=== PATIENT | female | born 1960 | race Caucasian/White ===

== ENCOUNTER 2016-08-15 09:36 | Emergency (ER) | payer MEDICAID ==
[~2016-08-15] VITALS: Ht 157.5 cm; Wt 39.0 kg
[~2016-08-15 09:36] MED LIST: ALENDRONATE SOD10 MG ORAL; ATIVAN1 MG ORAL; AZITHROMYCIN250 MG ORAL; BENTYL10 MG ORAL; CALCIUM500 M2 PO; CELEBREX200 MG ORAL; CHERATUSSIN AC118 ML PO; CYCLOBENZAPRINE10 MG ORAL; FLONASE1 SPRAYS NASAL; FOSAMAX70 MG ORAL; IBUPROFEN600 MG ORAL; LEVAQUIN500 MG ORAL; LEVAQUIN750 MG PO; LEVOTHYROXINE100 MCG ORAL; NAPROSYN500 M1 ORAL; NEXIUM40 MG PO; NORCO 10/3251 EA ORAL; NORCO 5-325 TA1 EACH ORAL; OMEPRAZOLE40 M1 ORAL; PHENAZOPYRIDIN200 MG ORAL; PHENERGAN/CODE120 ML PO; POLYTRIM EYE DR10 M1 OP; ROBITUSSIN COU118 M4 PO; SYNTHROID100 MCG ORAL; SYNTHROID100 MCG PO; TAMIFLU75 MG ORAL; TYLENOL 8 HOUR650 M1 ORAL; TYLENOL325 MG ORAL; VALIUM5 MG ORAL; ZOFRAN ODT4 MG ORAL
[2016-08-15 09:59] VITALS: BP 121/73
--- NOTE | 2016-08-15 10:12 | Emergency Room Report ---
History of Present Illness General Chief Complaint: Flu Like Symptoms Source: Patient Present Illness HPI Patient presents with complaints of cough and sore throat Patient reports that the symptoms onset was about 3 days ago She had similar presentation about one month ago did better at that time however again has returned She reports that last year she did not get sick at all and is here she has had several upper respiratory infections She feels increased phlegm in her chest Denies any vomiting or diarrhea Has increased pain with swallowing 4 out of 10 sharp and burning Denies any neck pain or photophobia Allergies: Coded Allergies: PENICILLINS (Unverified Allergy, Unknown, 11/30/14) CIMETIDINE (Verified Adverse Reaction, Intermediate, 08/25/12) NOT ABLE TO DIGEST IT PER PT CIMETIDINE HCL (Verified Adverse Reaction, Intermediate, 08/25/12) NOT ABLE TO DIGEST IT PER PT Patient History Past Medical History: see triage record Pertinent Family History: none Last Menstrual Period: na Reviewed Nursing Documentation: PMH: Agreed, PSxH: Agreed Nursing Documentation-PMH Past Medical History: No History, Except For Hx Hypertension: No Hx Pacemaker: No Hx Asthma: No Hx Diabetes: No Hx Cancer: No Hx Gastrointestinal Problems: Yes - IBS Hx Dialysis: No Hx Neurological Problems: No Hx Cerebrovascular Accident: No Hx Seizures: No Review of Systems All Other Systems: negative except mentioned in HPI Physical Exam Vital Signs Date Time Temp Pulse Resp B/P Pulse Ox O2 Delivery O2 Flow Rate FiO2 08/15/16 09:38 99.3 114 20 116/73 95 Room Air Sp02 EP Interpretation: reviewed, normal General Appearance: well appearing - However appears thin, no apparent distress Head: normocephalic, atraumatic Eyes: bilateral eye EOMI, bilateral eye PERRL ENT: hearing grossly normal, normal pharynx, TMs + canals normal, uvula midline Neck: full range of motion, supple, no meningismus, no bony tend Respiratory: normal breath sounds, no rhonchi, no respiratory distress, no retraction, no accessory muscle use, crackles - In both lower lobes Cardiovascular #1: normal peripheral pulses, regular rate, rhythm, no edema, no gallop, no JVD, no murmur Gastrointestinal: normal bowel sounds, non tender, soft, no mass, no organomegaly, non-distended, no guarding, no hernia, no pulsatile mass, no rebound Genitourinary: no CVA tenderness Musculoskeletal: normal inspection Neurologic: oriented x3, responsive, mechanical handyman III-XII nml as tested, motor strength/ tone normal, sensory intact Psychiatric: mood/affect normal Skin: normal color, no rash, warm/dry, palpation normal Lymphatic: normal inspection, no adenopathy Medical Decision Making Diagnostic Impression: Primary Impression: Influenza-like symptoms Additional Impressions: Upper respiratory infection Medication refill ER Course With the patient's presentation complaints multiple differentials are considered Given her symptomatically presentation IV was established along with imaging studies obtained I do see that the patient had imaging of the chest in July however she has worsening symptoms Patient's blood work is at baseline levels at this time Patient's also asking for refill of medications including her thyroid and protonic Reports that she has a history of IBS Given her history and also complaining of weight loss at the end of evaluation I recommended that she requires very close outpatient followup patient does not have any primary care at this time and was given a referral for close followup Labs Test 08/15/16 10:20 White Blood Count 3.5 K/UL (4.8-10.8) Red Blood Count 4.50 M/UL (4.20-5.40) Hemoglobin 13.6 G/DL (12.0-16.0) Hematocrit 40.7 % (37.0-47.0) Mean Corpuscular Volume 90 FL (80-99) Mean Corpuscular Hemoglobin 30.1 PG (27.0-31.0) Mean Corpuscular Hemoglobin Concent 33.3 G/DL (32.0-36.0) Red Cell Distribution Width 11.2 % (11.6-14.8) Platelet Count 233 K/UL (150-450) Mean Platelet Volume 7.7 FL (6.5-10.1) Neutrophils (%) (Auto) 47.6 % (45.0-75.0) Lymphocytes (%) (Auto) 39.8 % (20.0-45.0) Monocytes (%) (Auto) 9.9 % (1.0-10.0) Eosinophils (%) (Auto) 1.6 % (0.0-3.0) Basophils (%) (Auto) 1.2 % (0.0-2.0) Sodium Level 139 mEQ/L (135-145) Potassium Level 3.8 mEQ/L (3.4-4.9) Chloride Level 95 mEQ/L (98-107) Carbon Dioxide Level 27 mEQ/L (20-30) Anion Gap 17 (5-15) Blood Urea Nitrogen 23 mg/dL (7-23) Creatinine 0.9 mg/dL (0.5-0.9) Estimat Glomerular Filtration Rate > 60 mL/min (>60) Glucose Level 100 mg/dL (74-106) Calcium Level 9.5 mg/dL (8.6-10.2) Phosphorus Level 3.1 mg/dL (2.5-4.8) Magnesium Level 2.2 mg/dL (1.7-2.5) Total Bilirubin 0.3 mg/dL (0.0-1.2) Aspartate Amino Transf (AST/SGOT) 27 U/L (5-40) Alanine Aminotransferase (ALT/SGPT) 11 U/L (3-33) Alkaline Phosphatase 67 U/L (35-104) Total Creatine Kinase 157 U/L (26-140) Creatine Kinase MB 2.8 ng/mL (< 3.8) Creatine Kinase MB Relative Index 1.7 Total Protein 7.5 g/dL (6.6-8.7) Albumin 4.3 g/dL (3.5-5.2) Globulin 3.2 g/dL Albumin/Globulin Ratio 1.3 (1.0-2.7) Lipase 28 U/L (< 60) Chest X-Ray Diagnostic Results EP Interpretation: Yes Findings: no consolidation, no effusion, no pneumothorax Number of Views: 1 Last Vital Signs Date Time Temp Pulse Resp B/P Pulse Ox O2 Delivery O2 Flow Rate FiO2 08/15/16 09:59 108 18 Room Air 08/15/16 09:59 99.2 121/73 96 Status: improved Disposition: HOME, SELF-CARE Condition: Improved Scripts Albuterol Sulfate* (ALBUTEROL SULFATE MDI*) 8.5 Gm Hfa.aer.ad 2 PUFF INH Q6H, #1 EA 0 Refills Prov: BARBIE JONES D.O. 08/15/16 Codeine/Promethazine Hcl* (PROMETHAZINE-CODEINE SYRUP*) 118 Ml Syrup 5 ML ORAL Q6H Y for For Cough for 5 Days, ML 0 Refills Prov: BARBIE JONES D.O. 08/15/16 Omeprazole (OMEPRAZOLE) 40 Mg Capsule. 40 MG ORAL DAILY, #20 CAP Prov: BARBIE JONES D.O. 08/15/16 Levothyroxine Sodium* (LEVOTHYROXINE SODIUM*) 100 Mcg Tablet 100 MCG ORAL DAILY, #30 TAB Take in the morning on an empty stomach, at least 30 minutes before food. Prov: ABRBIE JONES D.O. 08/15/16 Referrals: [facility]ERR[facility] (PCP) Additional Instructions: Patient is provided with the discharge instructions notified to follow up with primary doctor in the next 2-3 days otherwise return to the er with any worsening symptoms. BARBIE JONES D.O. Aug 15, 2016 10:12
[2016-08-15] MEDS ORDERED: Promethazine/Codeine 5ml UD ORAL ONE (10:15)
[2016-08-15] MEDS ORDERED: Albuterol ud Inhalation HHN ONE (10:15)
[2016-08-15 10:55] LABS: ALANINE AMINOTRANSFERASE 11 U/L (3-33); ALBUMIN/GLOBULIN RATIO 1.3 (1.0-2.7); ANION GAP 17 (5-15); ASPARTATE AMINO TRANSFERASE 27 U/L (5-40); CALCIUM 9.5 mg/dL (8.6-10.2); CARBON DIOXIDE 27 mEQ/L (20-30); CHLORIDE 95 mEQ/L (98-107); CREATININE 0.9 mg/dL (0.5-0.9); GLOMERULAR FILTRATION RATE > 60 mL/min (>60); HEMOLYSIS 8; LIPASE 28 U/L (< 60); MAGNESIUM 2.2 mg/dL (1.7-2.5); PHOSPHORUS 3.1 mg/dL (2.5-4.8); POTASSIUM 3.8 mEQ/L (3.4-4.9); SODIUM 139 mEQ/L (135-145); TOTAL PROTEIN 7.5 g/dL (6.6-8.7)
[2016-08-15 10:57] LABS: BASOPHILS % (AUTO) 1.2 % (0.0-2.0); EOSINOPHILS % (AUTO) 1.6 % (0.0-3.0); LYMPHOCYTES % (AUTO) 39.8 % (20.0-45.0); MEAN CORPUSCULAR HEMOGLOBIN 30.1 PG (27.0-31.0); MEAN CORPUSCULAR HGB CONC 33.3 G/DL (32.0-36.0); MEAN CORPUSCULAR VOLUME 90 FL (80-99); MEAN PLATELET VOLUME 7.7 FL (6.5-10.1); MONOCYTES % (AUTO) 9.9 % (1.0-10.0); NEUTROPHILS % (AUTO) 47.6 % (45.0-75.0); PLATELET COUNT 233 K/UL (150-450); RED CELL DISTRIBUTION WIDTH 11.2 % (11.6-14.8); WHITE BLOOD COUNT 3.5 K/UL (4.8-10.8)
[2016-08-15 11:06] LABS: CKMB 2.8 ng/mL (< 3.8)
[2016-08-15] MEDS ORDERED: OMEPRAZOLE40 M1 ORAL (11:52)
[2016-08-15] MEDS ORDERED: LEVOTHYROXINE100 MCG ORAL (11:52)
[2016-08-15] MEDS ORDERED: PROMETHAZINE-C118 M1 ORAL (11:52)
[2016-08-15] MEDS ORDERED: LEVAQUIN500 MG ORAL (11:59)
[2016-08-15] MEDS ORDERED: ALBUTEROL SULF8.5 GM INH (12:00)
[2016-08-15 12:19] VITALS: BP 118/70
--- NOTE | 2016-08-15 13:58 | Diagnostic Imaging Report ---
Indications: Cough Technique: Portable AP chest Findings: Comparison: 07/05/2016 Cardiac silhouette remains normal in size. Pulmonary vasculature remains within normal limits. Lungs are symmetrically hyperinflated. Lungs and pleura remain clear. Mild calcification of the aortic arch is unchanged. IMPRESSION: No evidence of acute disease, unchanged Stable chronic changes as described
== END 2016-08-15 12:20 | disposition home or self-care (01) ==
LOC: EMR 10:04
DX: J11.1 Influenza due to unidentified influenza virus with other respiratory manifestations (principal); J06.9 Acute upper respiratory infection, unspecified; Z76.0 Encounter for issue of repeat prescription; Z88.0 Allergy status to penicillin; Z88.8 Allergy status to other drugs, medicaments and biological substances
CPT/HCPCS: 36415; 71010; 80053; 82550; 82553; 83690; 83735; 84100; 85025; 87040; 96360; 96361

== ENCOUNTER 2016-12-12 18:26 | Emergency (ER) | payer MEDICAID ==
[~2016-12-12] VITALS: Ht 157.5 cm; Wt 39.5 kg
[~2016-12-12 18:26] MED LIST changes: +ALBUTEROL SULF8.5 GM INH; +PROMETHAZINE-C118 M1 ORAL
[2016-12-12] MEDS ORDERED: ALPRAZolam 0.5mg tab ORAL ONE (19:15)
[2016-12-12 20:10] VITALS: BP 112/68
[2016-12-12] MEDS ORDERED: IBUPROFEN600 MG ORAL (20:36)
[2016-12-12] MEDS ORDERED: CORTISPORIN EAR10 ML LEFT EAR (20:36)
[2016-12-12] MEDS ORDERED: SYNTHROID100 MCG ORAL (20:36)
[2016-12-12] MEDS ORDERED: OMEPRAZOLE40 M1 ORAL (20:36)
[2016-12-12 20:45] VITALS: BP 112/68
--- NOTE | 2016-12-12 22:13 | Emergency Room Report ---
History of Present Illness General Chief Complaint: Headache Source: Patient Present Illness HPI The patient is a 56-year-old female with many general complaints including headache, fatigue, total body pain, sore throat, ear pain,, and anxiety. She states headache began 1 month prior for no known reason. She has tried Advil which minimally helps. Pain seems to be right-sided and is described as a tight sensation. It is said to be a 9/10. Pain worse with bright lights and sounds. She denies other symptoms including fever, chills, chest pain, shortness of breath, numbness or tingling, nausea, vomiting Allergies: Coded Allergies: PENICILLINS (Unverified Allergy, Unknown, 11/30/14) CIMETIDINE (Verified Adverse Reaction, Intermediate, 08/25/12) NOT ABLE TO DIGEST IT PER PT CIMETIDINE HCL (Verified Adverse Reaction, Intermediate, 08/25/12) NOT ABLE TO DIGEST IT PER PT Patient History Past Medical History: see triage record Pertinent Family History: none Reviewed Nursing Documentation: PMH: Agreed, PSxH: Agreed Nursing Documentation-PMH Past Medical History: No History, Except For Hx Hypertension: No Hx Pacemaker: No Hx Asthma: No Hx Diabetes: No Hx Cancer: No Hx Gastrointestinal Problems: Yes - IBS Hx Dialysis: No Hx Neurological Problems: No Hx Cerebrovascular Accident: No Hx Seizures: No Review of Systems All Other Systems: negative except mentioned in HPI Physical Exam Vital Signs Date Time Temp Pulse Resp B/P Pulse Ox O2 Delivery O2 Flow Rate FiO2 12/12/16 18:30 98.4 105 18 115/73 100 Room Air Sp02 EP Interpretation: reviewed, normal General Appearance: no apparent distress, alert, GCS 15, non-toxic Head: normocephalic, atraumatic Eyes: bilateral eye PERRL, bilateral eye normal inspection ENT: hearing grossly normal, no angioedema, normal voice, other - L EAC slightly erythematous. TTP over tragus Neck: full range of motion, supple/symm/no masses Respiratory: chest non-tender, lungs clear, normal breath sounds, speaking full sentences Cardiovascular #1: regular rate, rhythm, no edema Musculoskeletal: back normal, gait/station normal, normal range of motion, non- tender Neurologic: alert, oriented x3, responsive, motor strength/tone normal, sensory intact, speech normal Psychiatric: judgement/insight normal, memory normal, no suicidal/homicidal ideation, anxious Skin: normal color, no rash, warm/dry, well hydrated Lymphatic: no adenopathy Medical Decision Making PA Attestation Dr. Gloria is my supervising physician. Patient management was discussed with my supervising physician Diagnostic Impression: Primary Impression: Medication refill Additional Impressions: Migraine Qualified Codes: G43.909 - Migraine, unspecified, not intractable, without status migrainosus Otitis externa Qualified Codes: H60.502 - Unspecified acute noninfective otitis externa, left ear ER Course The patient is a 56-year-old female with many complaints including headache, URI symptoms, and anxiety Differential diagnoses considered but not limited to: Migraine headache, cluster headache, anxiety disorder, otitis media, otitis externa Physical exam: Afebrile. Patient appears anxious and is tachycardic initially. HEENT exam reveals slightly erythematous external auditory canal with tenderness to palpation over tragus. Otherwise unremarkable The patient is given Motrin and an anxiolytic and is feeling better and appears more calm. She is given a prescription for Cortisporin and Motrin. She was informed to followup with PMD but states that she does not have one. She states that she just ran out of her hypothyroid and GERD medications and needs a refill. She was informed that she needs to establish care with a PCP as soon as possible. She is given a short refill of medications ER precautions given Last Vital Signs Date Time Temp Pulse Resp B/P Pulse Ox O2 Delivery O2 Flow Rate FiO2 12/12/16 20:45 98.4 78 16 112/68 97 Room Air Status: improved Disposition: HOME, SELF-CARE Condition: Improved Scripts Levothyroxine Sodium* (SYNTHROID*) 100 Mcg Tablet 100 MCG ORAL DAILY, #30 TAB Take in the morning on an empty stomach, at least 30 minutes before food. Prov: TERZIAN,KENNY P.A. 12/12/16 Neomycin/Polymyxin B Sulf/Hc* (CORTISPORIN EAR SOLUTION*) 10 Ml Solution 4 DROP LEFT EAR QID, #10 ML 0 Refills Prov: TERZIAN,KENNY P.A. 12/12/16 Omeprazole (OMEPRAZOLE) 40 Mg Capsule. 40 MG ORAL DAILY, #30 CAP Prov: TERZIAN,KENNY P.A. 12/12/16 Ibuprofen* (MOTRIN*) 600 Mg Tablet 600 MG ORAL Q6H Y for For Pain, #30 TAB Prov: KENNY EGAN 12/12/16 Patient Instructions: Hypothyroidism, Otitis Externa, General Headache Without Cause, Indigestion Additional Instructions: I discussed my findings with the patient. All questions and concerns have been answered. Treatment and medication compliance have been addressed. I advised the patient that they need to follow up with PMD in 3-5 days. Return to ED if symptoms worsen, new symptoms arise, or if needed for any reason. Patient verbalized understanding of discharge instructions. KENNY EGAN December 12, 2016 22:13
== END 2016-12-12 20:45 | disposition home or self-care (01) ==
LOC: EMR 18:50
DX: Z76.0 Encounter for issue of repeat prescription (principal); G43.909 Migraine, unspecified, not intractable, without status migrainosus; H60.92 Unspecified otitis externa, left ear; K58.9 Irritable bowel syndrome, unspecified; Z88.0 Allergy status to penicillin; Z88.8 Allergy status to other drugs, medicaments and biological substances; R53.83 Other fatigue; J02.9 Acute pharyngitis, unspecified; F41.9 Anxiety disorder, unspecified
CPT/HCPCS: 99284

== ENCOUNTER 2017-03-27 18:11 | Emergency (ER) | payer MEDICAID ==
[~2017-03-27] VITALS: Ht 157.5 cm; Wt 41.7 kg
[~2017-03-27 18:11] MED LIST changes: +CORTISPORIN EAR10 ML LEFT EAR
--- NOTE | 2017-03-27 18:42 | Emergency Room Report ---
History of Present Illness General Chief Complaint: Lower Extremity Injury Present Illness HPI 57-year-old female presents to the emergency department status post fall this a.m. Patient states she fell on the bilateral knees and has anterior tenderness to palpation bilaterally and left knee pain with weightbearing. pain is localized and 9/10 in severity. Patient states that intermittently she gets dizziness. Patient states that she has felt palpitations since falling as she was scared. Patient states she has thyroid dysfunction and takes Synthroid. Patient states she did not hit her head she did not lose consciousness. Patient states she is unsure exactly why she fell. She denies fevers, chills, nausea, vomiting. Denies Neck or back pain. pt. reports some soreness to the bilateral wrists but no significant Tenderness. Denies numbness tingling or loss of sensation or gross motor movements of the extremities, incontinence of bowel or bladder. Denies CP, Palpitations, LOC, AMS, dizziness, Changes in Vision, Sensation, paresthesias, or a sudden severe headache. Allergies: Coded Allergies: PENICILLINS (Unverified Allergy, Unknown, 11/30/14) CIMETIDINE (Verified Adverse Reaction, Intermediate, 08/25/12) NOT ABLE TO DIGEST IT PER PT CIMETIDINE HCL (Verified Adverse Reaction, Intermediate, 08/25/12) NOT ABLE TO DIGEST IT PER PT Patient History Past Medical History: see triage record Past Surgical History: none Pertinent Family History: none Now: No Immunizations: UTD Reviewed Nursing Documentation: PMH: Agreed, PSxH: Agreed Nursing Documentation-PMH Hx Hypertension: No Hx Pacemaker: No Hx Asthma: No Hx Diabetes: No Hx Cancer: No Hx Gastrointestinal Problems: Yes - IBS Hx Dialysis: No Hx Neurological Problems: No Hx Cerebrovascular Accident: No Hx Seizures: No Review of Systems All Other Systems: negative except mentioned in HPI Physical Exam Vital Signs Date Time Temp Pulse Resp B/P (MAP) Pulse Ox O2 Delivery O2 Flow Rate FiO2 03/27/17 18:17 99.0 115 26 114/64 98 Room Air Sp02 EP Interpretation: reviewed, normal General Appearance: no apparent distress, alert, GCS 15, non-toxic Head: normocephalic, atraumatic Eyes: bilateral eye normal inspection, bilateral eye PERRL ENT: hearing grossly normal, normal pharynx, no angioedema, normal voice Neck: full range of motion, supple/symm/no masses Respiratory: lungs clear, normal breath sounds, speaking full sentences Cardiovascular #1: regular rate, rhythm, tachycardia Gastrointestinal: non tender, soft, no guarding, no rebound Rectal: deferred Musculoskeletal: back normal, gait/station normal, normal range of motion - with pain, tender - TTP to the anterior knees bilaterally, no swelling, mild bruising noted to the anterior right knee, no increased ligamental laxity, negative ant. and post. drawer signs. FROM with pain, no clicking. Neurologic: alert, oriented x3, responsive, motor strength/tone normal, sensory intact, cerebellar normal, speech normal, no pronator, other - Pt. is walking with a limp favoring the right knee. Psychiatric: judgement/insight normal, memory normal, mood/affect normal Skin: normal color, no rash, warm/dry, well hydrated Medical Decision Making PA Attestation Dr. Rodriges is my supervising Physician whom patient management has been discussed with. Diagnostic Impression: Primary Impression: Knee contusion Qualified Codes: S80.00XA - Contusion of unspecified knee, initial encounter Additional Impressions: Fall Qualified Codes: W19.XXXA - Unspecified fall, initial encounter GERD (gastroesophageal reflux disease) Qualified Codes: K21.9 - Gastro-esophageal reflux disease without esophagitis Hypothyroidism Qualified Codes: E03.9 - Hypothyroidism, unspecified ER Course 57-year-old female presents to the emergency department status post fall this a.m. Patient states she fell on the bilateral knees and has anterior tenderness to palpation bilaterally and left knee pain with weightbearing. pain is localized and 9/10 in severity. Patient states that intermittently she gets dizziness. Patient states that she has felt palpitations since falling as she was scared. Patient states she has thyroid dysfunction and takes Synthroid. Patient states she did not hit her head she did not lose consciousness. Patient states she is unsure exactly why she fell. She denies fevers, chills, nausea, vomiting. Denies Neck or back pain. pt. reports some soreness to the bilateral wrists but no significant Tenderness. Denies numbness tingling or loss of sensation or gross motor movements of the extremities, incontinence of bowel or bladder. Denies CP, Palpitations, LOC, AMS, dizziness, Changes in Vision, Sensation, paresthesias, or a sudden severe headache. Ddx considered but are not limited to Fracture, dislocation, contusion, Sprain/ Strain/Spasm, cardiac pathology, dysrhythmia, UTI Vital signs: are WNL, pt. is afebrile H&PE are most consistent with musculoskeletal injury will perform imaging to r/ o fractures/dislocations. Will also do syncope work up as pt. does not recall exactly why she fell. No focal neurological deficits, no motor weakness. ORDERS: - X-ray Right Knee 3 views - negative for fx, Dislocation, or significant soft tissue injury, per preliminary read in ED by Dr. Rodriges - interpretation is scribed by FER. - X-ray Left Knee 3 views - negative for fx, Dislocation, or significant soft tissue injury, per preliminary read in ED by Dr. Rodriges - interpretation is scribed by FER - CXR 1 views: No consolidation, effusion, pneumothorax or acute cardiopulmonary findings per soft read in ED by Dr. Rodriges -CBC:mild richardson cytopenia, hgb ok -CMP: unremarkable -Troponin: WNL -CK-MB: WNL -Ck: WNL -UA: unremarkable , no evidence of infection - EK BPM Sinus tachycardia - no acute ST changes reviewed by Dr. Rodriges, this interpretation was scribed by FER Fraga ED INTERVENTIONS: - Tyllenol #3 - Pt is given Ice packs - Ruperto wrap applied to the right knee by pipe coremaker, pt. remains NVI - Pt. is provided with a pair of crutches. AT this time pt. is stable for close outpatient follow up with pMD. d/w pt. ED return precautions such as worsening or new symptoms. Pt. also requests refill of synthroid and omeprazole. DISCHARGE: At this time pt. is stable for d/c to home. Will provide printed patient care instructions, and any necessary prescriptions. Care plan and follow up instructions have been discussed with the patient prior to discharge. Labs Test 03/27/17 19:10 White Blood Count 4.5 K/UL (4.8-10.8) Red Blood Count 3.83 M/UL (4.20-5.40) Hemoglobin 12.6 G/DL (12.0-16.0) Hematocrit 35.8 % (37.0-47.0) Mean Corpuscular Volume 93 FL (80-99) Mean Corpuscular Hemoglobin 33.0 PG (27.0-31.0) Mean Corpuscular Hemoglobin Concent 35.4 G/DL (32.0-36.0) Red Cell Distribution Width 11.2 % (11.6-14.8) Platelet Count 225 K/UL (150-450) Mean Platelet Volume 6.5 FL (6.5-10.1) Neutrophils (%) (Auto) 55.7 % (45.0-75.0) Lymphocytes (%) (Auto) 34.8 % (20.0-45.0) Monocytes (%) (Auto) 8.0 % (1.0-10.0) Eosinophils (%) (Auto) 0.6 % (0.0-3.0) Basophils (%) (Auto) 1.0 % (0.0-2.0) Urine Color Pale yellow Urine Appearance Clear Urine pH 8 (4.5-8.0) Urine Specific [place] 1.010 (1.005-1.035) Urine Protein Negative (NEGATIVE) Urine Glucose (UA) Negative (NEGATIVE) Urine Ketones 2+ (NEGATIVE) Urine Occult Blood Negative (NEGATIVE) Urine Nitrite Negative (NEGATIVE) Urine Bilirubin Negative (NEGATIVE) Urine Urobilinogen Normal MG/DL (0.0-1.0) Urine Leukocyte Esterase Negative (NEGATIVE) Sodium Level 140 mEQ/L (135-145) Potassium Level 4.1 mEQ/L (3.4-4.9) Chloride Level 99 mEQ/L (98-107) Carbon Dioxide Level 28 mEQ/L (20-30) Anion Gap 13 (5-15) Blood Urea Nitrogen 16 mg/dL (7-23) Creatinine 0.7 mg/dL (0.5-0.9) Estimat Glomerular Filtration Rate > 60 mL/min (>60) Glucose Level 100 mg/dL (74-106) Calcium Level 9.4 mg/dL (8.6-10.2) Total Bilirubin 0.2 mg/dL (0.0-1.2) Aspartate Amino Transf (AST/SGOT) 17 U/L (5-40) Alanine Aminotransferase (ALT/SGPT) 8 U/L (3-33) Alkaline Phosphatase 66 U/L (35-104) Total Creatine Kinase 59 U/L (26-140) Creatine Kinase MB 1.9 ng/mL (< 3.8) Creatine Kinase MB Relative Index 3.2 Troponin I < 0.30 ng/mL (<=0.30) Total Protein 7.2 g/dL (6.6-8.7) Albumin 4.6 g/dL (3.5-5.2) Globulin 2.6 g/dL Albumin/Globulin Ratio 1.7 (1.0-2.7) Last Vital Signs Date Time Temp Pulse Resp B/P (MAP) Pulse Ox O2 Delivery O2 Flow Rate FiO2 03/27/17 18:17 99.0 115 26 114/64 98 Room Air Disposition: HOME, SELF-CARE Condition: Stable Scripts Levothyroxine Sodium* (SYNTHROID*) 100 Mcg Tablet 100 MCG ORAL DAILY for 30 Days, #30 TAB Take in the morning on an empty stomach, at least 30 minutes before food. Prov: Kylah Fraga 03/27/17 Omeprazole (OMEPRAZOLE) 40 Mg Capsule.dr 40 MG ORAL DAILY for 30 Days, #30 CAP Prov: Kylah Fraga 03/27/17 Acetaminophen* (TYLENOL EXTRA STRENGTH*) 500 Mg Tablet 500 MG ORAL Q6H, #20 TAB 0 Refills Prov: Kylah Fraga 03/27/17 Patient Instructions: Contusion Additional Instructions: Take medications as directed. Follow up with a Primary Care Provider in 3-5 days, even if your symptoms have resolved. --Please review list of primary care clinics, if you do not already have a primary care provider Return sooner to ED if new symptoms occur, or current symptoms become worse. - Please note that this Emergency Department Report was dictated using Viewabillcement tester assistant technology software, occasionally this can lead to erroneous entry secondary to interpretation by the dictation equipment. Kylah Fraga Mar 27, 2017 18:42
[2017-03-27] MEDS ORDERED: Tylenol #3 tab (300mg/30mg) ORAL ONE (19:15)
[2017-03-27 19:36] LABS: APPEARANCE,URINE CLEAR; KETONES,URINE 2+ (NEGATIVE); LEUKOCYTE ESTERASE ,URINE NEGATIVE (NEGATIVE); NITRITE,URINE NEGATIVE (NEGATIVE); PH,URINE 8 (4.5-8.0); PROTEIN,URINE NEGATIVE (NEGATIVE); UROBILINOGEN,URINE NORMAL MG/DL (0.0-1.0)
[2017-03-27 19:42] LABS: EOSINOPHILS % (AUTO) 0.6 % (0.0-3.0); LYMPHOCYTES % (AUTO) 34.8 % (20.0-45.0); MEAN CORPUSCULAR HGB CONC 35.4 G/DL (32.0-36.0); MEAN CORPUSCULAR VOLUME 93 FL (80-99); MEAN PLATELET VOLUME 6.5 FL (6.5-10.1); NEUTROPHILS % (AUTO) 55.7 % (45.0-75.0); PLATELET COUNT 225 K/UL (150-450); RED BLOOD COUNT 3.83 M/UL (4.20-5.40); RED CELL DISTRIBUTION WIDTH 11.2 % (11.6-14.8); WHITE BLOOD COUNT 4.5 K/UL (4.8-10.8)
[2017-03-27 20:05] LABS: TROPONIN I < 0.30 ng/mL (<=0.30)
[2017-03-27 20:06] LABS: ALANINE AMINOTRANSFERASE 8 U/L (3-33); ALBUMIN/GLOBULIN RATIO 1.7 (1.0-2.7); ANION GAP 13 (5-15); ASPARTATE AMINO TRANSFERASE 17 U/L (5-40); CALCIUM 9.4 mg/dL (8.6-10.2); CARBON DIOXIDE 28 mEQ/L (20-30); CHLORIDE 99 mEQ/L (98-107); CREATININE 0.7 mg/dL (0.5-0.9); GLOMERULAR FILTRATION RATE > 60 mL/min (>60); HEMOLYSIS 4; POTASSIUM 4.1 mEQ/L (3.4-4.9); SODIUM 140 mEQ/L (135-145); TOTAL PROTEIN 7.2 g/dL (6.6-8.7)
[2017-03-27] MEDS ORDERED: TYLENOL EXTRA500 MG ORAL (20:10)
[2017-03-27 20:17] LABS: CKMB 1.9 ng/mL (< 3.8)
[2017-03-27 20:18] VITALS: BP 125/56
[2017-03-27] MEDS ORDERED: OMEPRAZOLE40 M1 ORAL (20:18)
[2017-03-27] MEDS ORDERED: SYNTHROID100 MCG ORAL (20:18)
--- NOTE | 2017-03-28 11:37 | Diagnostic Imaging Report ---
Indication: Pain 3 views of the left knee were obtained. Findings: The bones are osteopenic. There is no fracture or malalignment or joint effusion seen. There is some narrowing of the medial compartment. Impression: Osteoarthritis Osteoporosis
--- NOTE | 2017-03-28 11:38 | Diagnostic Imaging Report ---
Indication: Pain 3 views of the right knee were obtained. Findings: There is narrowing of the medial compartment of the knee. The bones are osteopenic. No definite joint effusion identified. No fracture seen. Impression: No acute injury. Osteoarthritis/osteopenia
--- NOTE | 2017-03-28 11:43 | Diagnostic Imaging Report ---
Indication: Dyspnea Comparison: 08/15/16 A single view chest radiograph was obtained. Findings: Lungs are clear. Heart size is normal. Bones are osteopenic. Impression: No acute disease
--- NOTE | 2017-04-01 15:51 | Cardiology Report ---
APPROVED REPORT EKG Measurement Heart [id number] Sinus tachycardia Otherwise normal ECG
== END 2017-03-27 20:30 | disposition home or self-care (01) ==
LOC: EMR 20:25
DX: S80.01XA Contusion of right knee, initial encounter (principal); M25.562 Pain in left knee; K21.9 Gastro-esophageal reflux disease without esophagitis; E03.9 Hypothyroidism, unspecified; R42 Dizziness and giddiness; W19.XXXA Unspecified fall, initial encounter; Y93.9 Activity, unspecified; Y92.9 Unspecified place or not applicable; Z88.0 Allergy status to penicillin; Z88.8 Allergy status to other drugs, medicaments and biological substances; R00.0 Tachycardia, unspecified; M85.80 Other specified disorders of bone density and structure, unspecified site; M17.0 Bilateral primary osteoarthritis of knee; M81.0 Age-related osteoporosis without current pathological fracture
CPT/HCPCS: 29530; 36415; 71010; 80053; 81003; 82550; 82553; 84484; 85025; 93005; 99284

== ENCOUNTER 2017-06-05 18:02 | Emergency (ER) | payer MEDICAID ==
[~2017-06-05] VITALS: Ht 157.5 cm; Wt 38.6 kg
[~2017-06-05 18:02] MED LIST changes: +TYLENOL EXTRA500 MG ORAL
[2017-06-05] MEDS ORDERED: Methocarbamol 750mg tab ORAL ONE (18:30)
[2017-06-05 18:33] VITALS: BP 123/79
[2017-06-05] MEDS ORDERED: SYNTHROID100 MCG ORAL (18:56)
[2017-06-05] MEDS ORDERED: ROBAXIN-750750 MG PO (18:56)
[2017-06-05] MEDS ORDERED: TYLENOL EXTRA500 MG ORAL (18:56)
[2017-06-05] MEDS ORDERED: OMEPRAZOLE40 M1 ORAL (18:56)
[2017-06-05 19:13] VITALS: BP 123/79
--- NOTE | 2017-06-05 21:23 | Emergency Room Report ---
History of Present Illness General Chief Complaint: Multiple Trauma/Fall Source: Patient Present Illness HPI The patient is a 57-year-old female with a history of hypothyroidism and GERD presenting for pain after falling 2 days ago. She states that she was walking, felt dizzy, and fell down onto her arms. She denies loss of consciousness or head. She is now describing pain as a 6/10 dull ache to the right wrist and right shoulder. Pain worse with touch. She denies any numbness or tingling. She denies any other symptoms including nausea, vomiting, fever, chills, chest pain, shortness of breath, blurred vision, headache Allergies: Coded Allergies: PENICILLINS (Unverified Allergy, Unknown, 11/30/14) CIMETIDINE (Verified Adverse Reaction, Intermediate, 08/25/12) NOT ABLE TO DIGEST IT PER PT CIMETIDINE HCL (Verified Adverse Reaction, Intermediate, 08/25/12) NOT ABLE TO DIGEST IT PER PT Patient History Past Medical History: see triage record Pertinent Family History: none Reviewed Nursing Documentation: PMH: Agreed, PSxH: Agreed Nursing Documentation-PMH Past Medical History: No History, Except For Hx Hypertension: No Hx Pacemaker: No Hx Asthma: No Hx Diabetes: No Hx Cancer: No Hx Gastrointestinal Problems: Yes - IBS Hx Dialysis: No History Of Psychiatric Problem: No Hx Neurological Problems: No Hx Cerebrovascular Accident: No Hx Seizures: No Review of Systems All Other Systems: negative except mentioned in HPI Physical Exam Vital Signs Date Time Temp Pulse Resp B/P (MAP) Pulse Ox O2 Delivery O2 Flow Rate FiO2 06/05/17 18:07 98.4 100 16 123/79 96 Room Air Sp02 EP Interpretation: reviewed, normal General Appearance: no apparent distress, alert, GCS 15, non-toxic Head: normocephalic, atraumatic Eyes: bilateral eye normal inspection, bilateral eye PERRL ENT: hearing grossly normal, normal pharynx, no angioedema, normal voice Neck: full range of motion, supple/symm/no masses Respiratory: chest non-tender, lungs clear, normal breath sounds, speaking full sentences Cardiovascular #1: regular rate, rhythm, no edema Genitourinary: normal inspection, no CVA tenderness Musculoskeletal: back normal, gait/station normal, normal range of motion, non- tender Neurologic: alert, oriented x3, responsive, motor strength/tone normal, sensory intact, speech normal Psychiatric: judgement/insight normal, memory normal, mood/affect normal, no suicidal/homicidal ideation Skin: normal color, no rash, warm/dry, well hydrated Lymphatic: no adenopathy Medical Decision Making PA Attestation Dr. Dinero is my supervising physician. Patient management was discussed with my supervising physician Diagnostic Impression: Primary Impression: Muscle strain ER Course The patient is a 57-year-old female presenting for pain after falling Ddx considered include but not limited to sprain/strain, fracture, contusion PE: NAD. Head NC/AT Musculoskeletal: R shoulder and R wrist: Non tender. Full AROM. No ecchymosis. No edema. EKG unremarkable No imaging needed at this time. The patient is asking for medication refills of chronic medications as she has been unable to FU with PMD. She will be DC'ed home. ER precautions given EKG Diagnostic Results EP Interpretation: NSR. No acute findings Rate: normal - 95 Rhythm: NSR ST Segments: no acute changes ASA given to the pt in ED: No PA Scribe Text EKG was reviewed and read with my supervising physician. No acute ST segment changes are seen. Normal rate and rhythm. No acute changes. Last Vital Signs Date Time Temp Pulse Resp B/P (MAP) Pulse Ox O2 Delivery O2 Flow Rate FiO2 06/05/17 19:14 98.4 06/05/17 19:13 78 16 123/79 96 Room Air Status: improved Disposition: HOME, SELF-CARE Condition: Improved Scripts Methocarbamol* (ROBAXIN-750*) 750 Mg Tablet 750 MG PO TID, #21 TAB 0 Refills Prov: TERZIAN,KENNY P.A. 06/05/17 Acetaminophen* (TYLENOL EXTRA STRENGTH*) 500 Mg Tablet 500 MG ORAL Q8H Y for Prn Headache/Temp > 101, #30 TAB 0 Refills Prov: TERZIAN,KENNY P.A. 06/05/17 Levothyroxine Sodium* (SYNTHROID*) 100 Mcg Tablet 100 MCG ORAL DAILY, #30 TAB Take in the morning on an empty stomach, at least 30 minutes before food. Prov: TERZIAN,KENNY P.A. 06/05/17 Omeprazole (OMEPRAZOLE) 40 Mg Capsule. 40 MG ORAL DAILY, #30 CAP Prov: TERZIAN,KENNY P.A. 11/2/17 Referrals: [facility]ERR[facility] (PCP) Patient Instructions: Muscle Strain Additional Instructions: I discussed my findings with the patient. All questions and concerns have been answered. Treatment and medication compliance have been addressed. I advised the patient that they need to follow up with PMD in 3-5 days. Return to ED if symptoms worsen, new symptoms arise, or if needed for any reason. Patient verbalized understanding of discharge instructions. KENNY EGAN Jun 05, 2017 21:23
--- NOTE | 2017-06-07 14:46 | Cardiology Report ---
APPROVED REPORT EKG Measurement Heart [id number] Sinus rhythm with short RI Otherwise normal ECG
== END 2017-06-05 19:12 | disposition home or self-care (01) ==
LOC: EMR 18:40
DX: S66.911A Strain of unspecified muscle, fascia and tendon at wrist and hand level, right hand, initial encounter (principal); S46.911A Strain of unspecified muscle, fascia and tendon at shoulder and upper arm level, right arm, initial encounter; W19.XXXA Unspecified fall, initial encounter; Y92.410 Unspecified street and highway as the place of occurrence of the external cause; Z88.0 Allergy status to penicillin; Z88.8 Allergy status to other drugs, medicaments and biological substances
CPT/HCPCS: 93005; 99284

== ENCOUNTER 2017-09-05 18:24 | Emergency (ER) | payer MEDICAID ==
[~2017-09-05] VITALS: Ht 157.5 cm; Wt 38.6 kg
[~2017-09-05 18:24] MED LIST changes: +ROBAXIN-750750 MG PO
[2017-09-05 18:40] VITALS: BP_SYST 113; BP_SYST 124; BP_DIAS 55; BP_DIAS 78
--- NOTE | 2017-09-05 18:59 | Emergency Room Report ---
History of Present Illness General Chief Complaint: Upper Respiratory Illness Source: Patient Present Illness HPI 57-year-old female, history of IBS, hypothyroidism, presents with fever, chills , cough, runny nose for 3 days. Cough is productive with clear phlegm. Pt still eating/drinking well. +sick contacts. No recent travel. No SOB, cp, abdominal pain, n/v/. +few episodes diarrhea/day Allergies: Coded Allergies: PENICILLINS (Unverified Allergy, Unknown, 11/30/14) CIMETIDINE (Verified Adverse Reaction, Intermediate, 08/25/12) NOT ABLE TO DIGEST IT PER PT CIMETIDINE HCL (Verified Adverse Reaction, Intermediate, 08/25/12) NOT ABLE TO DIGEST IT PER PT Patient History Past Medical History: see triage record Past Surgical History: none Pertinent Family History: none Now: No Reviewed Nursing Documentation: PMH: Agreed, PSxH: Agreed Nursing Documentation-PMH Past Medical History: No History, Except For Hx Hypertension: No Hx Pacemaker: No Hx Asthma: No Hx Diabetes: No Hx Cancer: No Hx Gastrointestinal Problems: Yes - IBS Hx Dialysis: No Hx Neurological Problems: No Hx Cerebrovascular Accident: No Hx Seizures: No Review of Systems All Other Systems: negative except mentioned in HPI Physical Exam Vital Signs Date Time Temp Pulse Resp B/P (MAP) Pulse Ox O2 Delivery O2 Flow Rate FiO2 09/05/17 18:31 99.0 137 20 122/87 97 Room Air Sp02 EP Interpretation: reviewed, normal General Appearance: alert, GCS 15, non-toxic, mild distress Head: normocephalic, atraumatic Eyes: bilateral eye normal inspection, bilateral eye PERRL, bilateral eye EOMI ENT: normal ENT inspection, normal pharynx, normal voice, moist mucus membranes Neck: normal inspection, full range of motion, supple Respiratory: normal inspection, lungs clear, normal breath sounds, no respiratory distress, no retraction, no wheezing, speaking full sentences, chest symmetrical Cardiovascular #1: no edema, tachycardia Cardiovascular #2: 2+ radial (R), 2+ radial (L) Gastrointestinal: normal inspection, non tender, soft, non-distended, no guarding Musculoskeletal: normal inspection, back normal, normal range of motion, non- tender Neurologic: normal inspection, alert, oriented x3, responsive, motor strength/ tone normal, sensory intact, normal gait, speech normal Psychiatric: normal inspection, judgement/insight normal, memory normal Skin: normal inspection, normal color, no rash, warm/dry, well hydrated, normal turgor Medical Decision Making Diagnostic Impression: Primary Impression: Upper respiratory infection ER Course 57-year-old female p/w fever, chills, runny nose, cough DDX: Viral URI / pneumonia Plan: Labs, x-ray, Tylenol ER course: Pt stable in ED, remains nontoxic appearing, no sob. Tolerating PO vs IMPROVED Disposition: Patient discharged to home with Tessalon Perles and Tamiflu Patient instructed to follow up with PMD in 1 week. Also instructed to take motrin/tylenol at home. Very strict return precautions discussed with patient such as intractable fever and chills, unable to eat or drink, severe chest pain or shortness of breath. Patient verbalized understanding and agrees with plan. Please note that this Emergency Department Report was dictated using [employer] technology software, occasionally this can lead to erroneous entry secondary to interpretation by the dictation equipment EKG Diagnostic Results EP Interpretation: Yes Rate: Tachycardic Rhythm: NSR ST Segments: No acute changes ASA given to patient: No Rhythm Strip EP Interpretation: Yes Rate: 129 Rhythm: NSR, no PVCs, no ectopy Chest X-ray CXR: Ordered: Yes 1 view Indication: Chest pain EP interpretation: Yes Interpretation: No consolidation, no effusion, no PTX, no acute cardiopulmonary disease Impression: No acute disease Electronically signed by Lauren Rodriges MD Laboratory Tests Test 09/05/17 19:25 White Blood Count 3.7 K/UL (4.8-10.8) L Red Blood Count 4.48 M/UL (4.20-5.40) Hemoglobin 13.7 G/DL (12.0-16.0) Hematocrit 41.1 % (37.0-47.0) Mean Corpuscular Volume 92 FL (80-99) Mean Corpuscular Hemoglobin 30.6 PG (27.0-31.0) Mean Corpuscular Hemoglobin Concent 33.3 G/DL (32.0-36.0) Red Cell Distribution Width 11.3 % (11.6-14.8) L Platelet Count 245 K/UL (150-450) Mean Platelet Volume 7.3 FL (6.5-10.1) Neutrophils (%) (Auto) 56.7 % (45.0-75.0) Lymphocytes (%) (Auto) 28.8 % (20.0-45.0) Monocytes (%) (Auto) 13.2 % (1.0-10.0) H Eosinophils (%) (Auto) 0.5 % (0.0-3.0) Basophils (%) (Auto) 0.9 % (0.0-2.0) Urine Color Yellow Urine Appearance Clear Urine pH 5 (4.5-8.0) Urine Specific Wilkinson 1.020 (1.005-1.035) Urine Protein Negative (NEGATIVE) Urine Glucose (UA) Negative (NEGATIVE) Urine Ketones 3+ (NEGATIVE) H Urine Occult Blood Negative (NEGATIVE) Urine Nitrite Negative (NEGATIVE) Urine Bilirubin Negative (NEGATIVE) Urine Urobilinogen Normal MG/DL (0.0-1.0) Urine Leukocyte Esterase 1+ (NEGATIVE) H Urine RBC 0-2 /HPF (0 - 2) Urine WBC 0-2 /HPF (0 - 2) Urine Squamous Epithelial Cells Occasional /LPF Urine Bacteria Few /HPF (NONE) Sodium Level 135 MMOL/L (136-145) L Potassium Level 3.5 MMOL/L (3.5-5.1) Chloride Level 98 MMOL/L (98-107) Carbon Dioxide Level 30 MMOL/L (21-32) Anion Gap 7 mmol/L (5-15) Blood Urea Nitrogen 12 mg/dL (7-18) Creatinine 0.7 MG/DL (0.55-1.30) Estimate Glomerular Filtration Rate > 60 mL/min (>60) Glucose Level 95 MG/DL (74-106) Lactic Acid Level 0.70 mmol/L (0.66-2.22) Calcium Level 9.8 MG/DL (8.5-10.1) Total Bilirubin 0.5 MG/DL (0.2-1.0) Aspartate Amino Transferase (AST) 20 U/L (15-37) Alanine Aminotransferase (ALT) 18 U/L (12-78) Alkaline Phosphatase 78 U/L (46-116) Troponin I 0.000 ng/mL (0.000-0.056) Total Protein 8.1 G/DL (6.4-8.2) Albumin 4.3 G/DL (3.4-5.0) Globulin 3.8 g/dL Albumin/Globulin Ratio 1.1 (1.0-2.7) Microbiology Date/Time Source Procedure Growth Status 09/05/17 19:25 Nasal Nares Influenza Types A,B Antigen (JOSE RAFAEL) - Final Complete Last Vital Signs Date Time Temp Pulse Resp B/P (MAP) Pulse Ox O2 Delivery O2 Flow Rate FiO2 09/05/17 18:31 99.0 137 20 122/87 97 Room Air Disposition: HOME, SELF-CARE Condition: Improved Scripts Omeprazole Magnesium (PRILOSEC OTC) 20 Mg Tablet.dr 40 MG ORAL DAILY, #7 TAB 0 Refills Prov: Lauren Rodriges M.D. 09/05/17 Oseltamivir Phosphate (Tamiflu) 75 Mg Capsule 75 MG ORAL TWICE A DAY for 5 Days, #10 CAP 0 Refills Prov: Lauren Rodriges M.D. 09/05/17 Benzonatate* (TESSALON PERLE*) 100 Mg Capsule 100 MG ORAL THREE TIMES A DAY, #21 PERLE 0 Refills Prov: Lauren Rodriges M.D. 09/05/17 Acetaminophen* (TYLENOL EXTRA STRENGTH*) 500 Mg Tablet 500 MG ORAL Q6HR Y for Prn Headache/Temp > 101, #30 TAB 0 Refills Prov: Lauren Rodriges M.D. 09/05/17 Lauren Rodriges M.D. Sep 05, 2017 18:59
[2017-09-05 19:40] VITALS: BP 113/55
[2017-09-05 19:44] LABS: BASOPHILS % (AUTO) 0.9 % (0.0-2.0); EOSINOPHILS % (AUTO) 0.5 % (0.0-3.0); HEMATOCRIT 41.1 % (37.0-47.0); HEMOGLOBIN 13.7 G/DL (12.0-16.0); LYMPHOCYTES % (AUTO) 28.8 % (20.0-45.0); MEAN CORPUSCULAR VOLUME 92 FL (80-99); MONOCYTES % (AUTO) 13.2 % (1.0-10.0); NEUTROPHILS % (AUTO) 56.7 % (45.0-75.0); PLATELET COUNT 245 K/UL (150-450); RED BLOOD COUNT 4.48 M/UL (4.20-5.40); RED CELL DISTRIBUTION WIDTH 11.3 % (11.6-14.8); WHITE BLOOD COUNT 3.7 K/UL (4.8-10.8)
[2017-09-05 19:46] LABS: APPEARANCE,URINE CLEAR; BILIRUBIN, URINE NEGATIVE (NEGATIVE); GLUCOSE, URINE (UA) NEGATIVE (NEGATIVE); KETONES,URINE 3+ (NEGATIVE); LEUKOCYTE ESTERASE ,URINE 1+ (NEGATIVE); NITRITE,URINE NEGATIVE (NEGATIVE); PH,URINE 5 (4.5-8.0); PROTEIN,URINE NEGATIVE (NEGATIVE); UROBILINOGEN,URINE NORMAL MG/DL (0.0-1.0)
[2017-09-05 19:47] LABS: COLOR,URINE YELLOW
[2017-09-05 19:56] LABS: ANION GAP 7 mmol/L (5-15); BLOOD UREA NITROGEN 12 mg/dL (7-18); CALCIUM 9.8 MG/DL (8.5-10.1); CARBON DIOXIDE 30 MMOL/L (21-32); CHLORIDE 98 MMOL/L (98-107); CREATININE 0.7 MG/DL (0.55-1.30); POTASSIUM 3.5 MMOL/L (3.5-5.1); SODIUM 135 MMOL/L (136-145)
[2017-09-05 20:00] LABS: ALANINE AMINOTRANSFERASE 18 U/L (12-78); ALBUMIN 4.3 G/DL (3.4-5.0); ALBUMIN/GLOBULIN RATIO 1.1 (1.0-2.7); ALKALINE PHOSPHATASE 78 U/L (46-116); ASPARTATE AMINO TRANSFERASE 20 U/L (15-37); BILIRUBIN,TOTAL 0.5 MG/DL (0.2-1.0)
[2017-09-05] MEDS ORDERED: TYLENOL EXTRA500 MG ORAL (20:05)
[2017-09-05] MEDS ORDERED: TAMIFLU75 MG ORAL (20:05)
[2017-09-05] MEDS ORDERED: TESSALON PERLE100 MG ORAL (20:05)
[2017-09-05 20:50] VITALS: BP 113/55
[2017-09-05] MEDS ORDERED: PRILOSEC OTC20 MG ORAL (20:54)
--- NOTE | 2017-09-06 09:34 | Diagnostic Imaging Report ---
Indication: Shortness of breath Technique: One view of the chest Comparison: A 21/11/2016 Findings: Lungs and pleural spaces are clear. Heart size is normal . No significant change Impression: No acute process
--- NOTE | 2017-09-06 15:57 | Cardiology Report ---
APPROVED REPORT EKG Measurement Heart [id number] Sinus tachycardia Possible Left atrial enlargement Nonspecific ST abnormality Abnormal ECG
== END 2017-09-05 20:50 | disposition home or self-care (01) ==
LOC: EMR 19:10
DX: J06.9 Acute upper respiratory infection, unspecified (principal); Z88.0 Allergy status to penicillin; Z88.8 Allergy status to other drugs, medicaments and biological substances
CPT/HCPCS: 36415; 71045; 80053; 81003; 83605; 84484; 85025; 86710; 87040; 93005; 96361; 96374; 99284

== ENCOUNTER 2017-11-20 18:26 | Emergency (ER) | payer MEDICAID ==
[~2017-11-20] VITALS: Ht 157.5 cm; Wt 39.0 kg
[~2017-11-20 18:26] MED LIST changes: +PRILOSEC OTC20 MG ORAL; +TESSALON PERLE100 MG ORAL
[2017-11-20 19:10] VITALS: BP 112/65
[2017-11-20] MEDS ORDERED: PROMETHAZINE-C118 M1 ORAL (20:13)
[2017-11-20] MEDS ORDERED: OMEPRAZOLE40 M1 ORAL (20:13)
[2017-11-20] MEDS ORDERED: SYNTHROID100 MCG ORAL (20:13)
[2017-11-20] MEDS ORDERED: ALBUTEROL SULF8.5 GM INH (20:18)
[2017-11-20 20:25] VITALS: BP 112/65
--- NOTE | 2017-11-20 22:16 | Emergency Room Report ---
History of Present Illness General Chief Complaint: General Complaint Source: Patient Present Illness HPI 57-year-old female presents ED for evaluation. States for the last few days she 's been experiencing body aches, cough, diarrhea, ear ache. States she has a fever. Afebrile in triage. Pain is dull, 9 out of 10, nonradiating. Notes cough. Denies sick contacts or recent travel. No other aggravating relieving factors. Denies any other associated symptoms Allergies: Coded Allergies: PENICILLINS (Unverified Allergy, Unknown, 11/30/14) CIMETIDINE (Verified Adverse Reaction, Intermediate, 08/25/12) NOT ABLE TO DIGEST IT PER PT CIMETIDINE HCL (Verified Adverse Reaction, Intermediate, 08/25/12) NOT ABLE TO DIGEST IT PER PT Patient History Past Medical History: other - IBS Past Surgical History: none Pertinent Family History: none Social History: Denies: smoking, alcohol use, drug use Now: No Immunizations: UTD Reviewed Nursing Documentation: PMH: Agreed; PSxH: Agreed Nursing Documentation-PMH Hx Hypertension: No Hx Pacemaker: No Hx Asthma: No Hx Diabetes: No Hx Cancer: No Hx Gastrointestinal Problems: Yes - IBS Hx Dialysis: No Hx Neurological Problems: No Hx Cerebrovascular Accident: No Hx Seizures: No Review of Systems All Other Systems: negative except mentioned in HPI Physical Exam Vital Signs Date Time Temp Pulse Resp B/P (MAP) Pulse Ox O2 Delivery O2 Flow Rate FiO2 11/20/17 19:06 99.1 107 20 112/65 97 Room Air 99.1 Sp02 EP Interpretation: reviewed, normal General Appearance: no apparent distress, alert, GCS 15, non-toxic Head: normocephalic, atraumatic Eyes: bilateral eye normal inspection, bilateral eye PERRL ENT: hearing grossly normal, normal pharynx, no angioedema, normal voice Neck: full range of motion, supple/symm/no masses Respiratory: chest non-tender, lungs clear, normal breath sounds, speaking full sentences Cardiovascular #1: regular rate, rhythm, no edema Cardiovascular #2: 2+ carotid (R), 2+ carotid (L), 2+ radial (R), 2+ radial (L) , 2+ dorsalis pedis (R), 2+ dorsalis pedis (L) Gastrointestinal: normal bowel sounds, non tender, soft, non-distended, no guarding, no rebound Rectal: deferred Genitourinary: normal inspection, no CVA tenderness Musculoskeletal: back normal, gait/station normal, normal range of motion, non- tender Neurologic: alert, oriented x3, responsive, motor strength/tone normal, sensory intact, speech normal Psychiatric: judgement/insight normal, memory normal, mood/affect normal, no suicidal/homicidal ideation Reflexes: 3+ bicep (R), 3+ bicep (L), 3+ tricep (R), 3+ tricep (L), 3+ knee (R) , 3+ knee (L) Skin: normal color, no rash, warm/dry, well hydrated Lymphatic: no adenopathy Medical Decision Making Diagnostic Impression: Primary Impression: Upper respiratory infection Qualified Codes: J06.9 - Acute upper respiratory infection, unspecified ER Course Hospital Course 57-year-old female presents to ED complaining of cough, sore throat, bodyaches diarrhea Differential diagnoses include: URI, pharyngitis, otitis media, asthma Clinical course Patient placed on stretcher. After initial history, physical exam reveals a female in no acute distress. Bilateral TM unremarkable. No pharyngeal erythema. No tonsillar exudates. No lymphadenopathy. lungs clear. abdomen soft. CXR no acute process Clinical findings consistent with URI. Reassurance given to parents. treatment is supportive therapy Diagnosis - URI Stable and discharged home with prescription for promethazine/codeine, albuterol. Given refills of her Synthroid and omeprazole. Instructed to followup with PMD. Return to ED if symptoms recur or worsen Last Vital Signs Date Time Temp Pulse Resp B/P (MAP) Pulse Ox O2 Delivery O2 Flow Rate FiO2 11/20/17 20:25 99.1 20 112/65 97 Room Air 210.4 11/20/17 19:06 107 Status: improved Disposition: HOME, SELF-CARE Condition: Stable Scripts Albuterol Sulfate* (ALBUTEROL SULFATE MDI*) 8.5 Gm Hfa.aer.ad 2 PUFF INH Q6H, #1 EA 0 Refills Prov: Jonny Garcia MD 11/20/17 Codeine/Promethazine Hcl* (PROMETHAZINE-CODEINE SYRUP*) 118 Ml Syrup 5 ML ORAL Q4H PRN for For Cough, #118 ML 0 Refills Prov: Jonny Garcia MD 11/20/17 Omeprazole (OMEPRAZOLE) 40 Mg Capsule. 40 MG ORAL DAILY, #30 CAP Prov: Jonny Garcia MD 11/20/17 Levothyroxine Sodium* (SYNTHROID*) 100 Mcg Tablet 100 MCG ORAL DAILY, #30 TAB Take in the morning on an empty stomach, at least 30 minutes before food. Prov: Jonny Garcia MD 11/20/17 Patient Instructions: Upper Respiratory Infection, Adult, [id number] Jonny Garcia MD Nov 20, 2017 22:16
--- NOTE | 2017-11-21 18:44 | Diagnostic Imaging Report ---
Indication: Cough Technique: XRAY Chest 1v Comparison: September 05, 2017 Findings: Heart size and mediastinal contours are within normal limits and stable compared to the prior exam. There is no focal consolidation, pneumothorax or pleural effusion. Osseous structures demonstrate no acute abnormality. Impression: No radiographic evidence of acute cardiopulmonary disease. No significant interval change compared to the prior exam.
== END 2017-11-20 20:25 | disposition home or self-care (01) ==
LOC: EMR 19:13
DX: J06.9 Acute upper respiratory infection, unspecified (principal); Z88.0 Allergy status to penicillin; Z88.8 Allergy status to other drugs, medicaments and biological substances
CPT/HCPCS: 71045; 99284

== ENCOUNTER 2018-03-26 18:36 | Emergency (ER) | payer MEDICAID ==
[~2018-03-26] VITALS: Ht 162.6 cm; Wt 45.4 kg
[2018-03-26 19:08] VITALS: BP 120/75
[2018-03-26 19:38] LABS: APPEARANCE,URINE CLEAR; BILIRUBIN, URINE NEGATIVE (NEGATIVE); COLOR,URINE PALE YELLOW; GLUCOSE, URINE (UA) NEGATIVE (NEGATIVE); KETONES,URINE 2+ (NEGATIVE); LEUKOCYTE ESTERASE ,URINE 1+ (NEGATIVE); NITRITE,URINE NEGATIVE (NEGATIVE); PH,URINE 6.5 (4.5-8.0); PROTEIN,URINE NEGATIVE (NEGATIVE); UROBILINOGEN,URINE NORMAL MG/DL (0.0-1.0)
--- NOTE | 2018-03-26 19:54 | Emergency Room Report ---
History of Present Illness General Chief Complaint: Upper Respiratory Illness Source: Patient Present Illness HPI 58-year-old female patient presents to ER with multiple complaints. Complaining of cough for the past 4 days with purulent sputum. Also complaining of runny nose during this time. Denies hemoptysis. Denies history of asthma or heart attack. Denies taking any blood thinner medications. Denies recent travel or periods of immobilization. Denies smoking or control medications. States had fever of 100 degrees at home. Reports sore throat symptoms began following cough. Also complaining of pain with urination. Denies Hematuria, vaginal discharge. Denies fever, chest pain, shortness of breath, flank pain. Reports been taking Tylenol without relief of symptoms. Patient is also requesting refill of her medications, requesting refill of Synthroid and omeprazole. States she has not been seen by primary care provider and "a while". Allergies: Coded Allergies: PENICILLINS (Unverified Allergy, Unknown, 11/30/14) CIMETIDINE (Verified Adverse Reaction, Intermediate, 08/25/12) NOT ABLE TO DIGEST IT PER PT CIMETIDINE HCL (Verified Adverse Reaction, Intermediate, 08/25/12) NOT ABLE TO DIGEST IT PER PT Patient History Past Medical History: see triage record Reviewed Nursing Documentation: PMH: Agreed; PSxH: Agreed Nursing Documentation-PMH Past Medical History: No History, Except For Hx Cardiac Problems: No - Hypothyroidism Hx Hypertension: No Hx Pacemaker: No Hx Asthma: No Hx COPD: No Hx Diabetes: No Hx Cancer: No Hx Gastrointestinal Problems: Yes - IBS Hx Dialysis: No Hx Neurological Problems: No Hx Cerebrovascular Accident: No Hx Seizures: No Review of Systems All Other Systems: negative except mentioned in HPI Physical Exam Vital Signs Date Time Temp Pulse Resp B/P (MAP) Pulse Ox O2 Delivery O2 Flow Rate FiO2 03/26/18 18:40 98.5 106 18 120/75 95 Room Air 98.4 Sp02 EP Interpretation: reviewed, normal General Appearance: well appearing, no apparent distress, alert, GCS 15, non- toxic Head: normocephalic, atraumatic Eyes: bilateral eye normal inspection, bilateral eye PERRL ENT: hearing grossly normal, normal pharynx, no angioedema, normal voice, TMs + canals normal, uvula midline, moist mucus membranes, other - uvula midline Neck: full range of motion Respiratory: lungs clear, normal breath sounds, no rhonchi, no respiratory distress, no accessory muscle use, no wheezing, speaking full sentences Cardiovascular #1: regular rate, rhythm, no edema Gastrointestinal: non tender, soft, no mass, non-distended, no guarding, no rebound Genitourinary: no CVA tenderness Musculoskeletal: back normal, digits/nails normal, gait/station normal, normal range of motion, non-tender, no calf tenderness, Bala's Sign negative Neurologic: alert, oriented x3, responsive, motor strength/tone normal, sensory intact Psychiatric: mood/affect normal Skin: no rash Lymphatic: no adenopathy Medical Decision Making PA Attestation Dr. Garcia is my supervising Physician whom patient management has been discussed with. Diagnostic Impression: Primary Impression: Upper respiratory infection Additional Impressions: Dysuria Medication refill ER Course Pt presents to ED c/o cough, dysuria, sore throat. DDX considered but are not limited to pharyngitis, laryngitis, URI, peritonsillar abscess, tonsillitis, UTI. no focal neuro deficits, cranial nerves intact as tested. Does not require imaging at this time. Low suspicion for peritonsillar abscess, no neck stiffness, no hot potato voice , no stridor. no hemoptysis, no immobilization, no smoking, previous history of PE or DVT, no calf swelling, negative Homans sign, Low suspicion for PE per well's criteria, Lungs clear to auscultation, no wheezes, rhonci, or rales, patient denies chest pain or shortness of breath, no peripheral edema, patient is afebrile, low suspicion for pneumonia, CHF or NC. Patient does not require chest x-ray or cardiac workup at this time. no abdominal tenderness to palpation,Does not require imaging at this time. VITAL SIGNS are WNL, patient is afebrile. mild elevation of pulse, continue to monitor. ER COURSE: history and physical exam consistent with upper respiratory tract infection, likely viral etiology of symptoms. Informed patient on possible course of symptoms. will provide treatment for symptoms. UA unremarkable, no signs of infection. instructed patient drink plenty fluids. informed patient ER does not normally provide refills of medications, will provide refills at this time. Patient needs to establish care with primary care provider if she is unable to meet with her primary care provider, contact her insurance to find out name of provider. ER cannot provide continual medication refills for chronic long-term conditions that require outpatient management and treatment. Provided with contact information for free and low-cost healthcare clinics. ER precautions given. return to ER for new or worsening symptoms including but not limited to chest pain, shortness of breath, abdominal pain, intractable vomiting, syncope, dizziness. Patient smiling and talking without difficulty, in no acute distress, nontoxic appearing. Patient OK for discharge to home. Recheck vitals, WNL. Patient OK for outpatient followup. DISCHARGE: At this time pt is stable for d/c to home. Patient is resting comfortably, in no acute distress, nontoxic appearing, talking without difficulty. Will provide with patient care instructions and any necessary prescriptions. Patient to take medication as instructed. Care plan and follow-up instructions provided. Patient questions asked and answered. Patient instructed to follow-up with primary care provider in 3 - 5 days. ER precautions given. Patient instructed to return to ER immediately for any new or worsening of symptoms including but not limited to intractable vomiting, difficulty breathing, inability to eat. - Please note that this Emergency Department Report was dictated using [employer] room helper technology software, occasionally this can lead to erroneous entry secondary to interpretation by the dictation equipment. Labs Test 03/26/18 19:15 Urine Color Pale yellow Urine Appearance Clear Urine pH 6.5 (4.5-8.0) Urine Specific [place] 1.010 (1.005-1.035) Urine Protein Negative (NEGATIVE) Urine Glucose (UA) Negative (NEGATIVE) Urine Ketones 2+ (NEGATIVE) Urine Blood Negative (NEGATIVE) Urine Nitrite Negative (NEGATIVE) Urine Bilirubin Negative (NEGATIVE) Urine Urobilinogen Normal MG/DL (0.0-1.0) Urine Leukocyte Esterase 1+ (NEGATIVE) Urine RBC 0-2 /HPF (0 - 2) Urine WBC 0-2 /HPF (0 - 2) Urine Squamous Epithelial Cells Occasional /LPF Urine Bacteria Occasional /HPF (NONE) Last Vital Signs Date Time Temp Pulse Resp B/P (MAP) Pulse Ox O2 Delivery O2 Flow Rate FiO2 03/26/18 19:08 98.4 18 120/75 95 Room Air 98.4 03/26/18 19:08 106 Disposition: HOME, SELF-CARE Condition: Stable Scripts Albuterol Sulfate* (ALBUTEROL SULFATE MDI*) 8.5 Gm Hfa.aer.ad 2 PUFF INH Q6H, #1 INH 0 Refills Prov: Shane Contreras 03/26/18 Acetaminophen* (TYLENOL EXTRA STRENGTH*) 500 Mg Tablet 500 MG ORAL Q8H PRN for Prn Headache/Temp > 101, #30 TAB 0 Refills Prov: Shane Contreras 03/26/18 Pseudoephedrine Hcl* (SUDAFED*) 30 Mg Tablet 30 MG PO Q6H, #24 TAB Prov: Shane Contreras 03/26/18 Benzonatate* (TESSALON PERLE*) 100 Mg Capsule 100 MG ORAL THREE TIMES A DAY, #30 PERLE Prov: Shane Contreras 03/26/18 Omeprazole (OMEPRAZOLE) 40 Mg Capsule.dr 40 MG ORAL DAILY, #30 CAP Prov: Shane Contreras 03/26/18 Levothyroxine Sodium* (SYNTHROID*) 100 Mcg Tablet 100 MCG ORAL DAILY, #30 TAB Take in the morning on an empty stomach, at least 30 minutes before food. Prov: Shane Contreras 03/26/18 Patient Instructions: Dysuria, Medicine Refill at the Emergency Department, Upper Respiratory Infection, Adult Additional Instructions: Followup with primary care provider in 3 -5 days. Discuss further treatment and referral at that time. Take medications as directed. Patient questions asked and answered. ER precautions given, patient instructed to return to ER immediately for any new or worsening of symptoms. Shane Contreras Mar 26, 2018 19:54
[2018-03-26 19:58] VITALS: BP 110/63
[2018-03-26] MEDS ORDERED: TYLENOL EXTRA500 MG ORAL (20:04)
[2018-03-26] MEDS ORDERED: OMEPRAZOLE40 M1 ORAL (20:04)
[2018-03-26] MEDS ORDERED: SYNTHROID100 MCG ORAL (20:04)
[2018-03-26] MEDS ORDERED: TESSALON PERLE100 MG ORAL (20:04)
[2018-03-26] MEDS ORDERED: PSEUDOEPHEDRINE30 MG PO (20:04)
[2018-03-26] MEDS ORDERED: ALBUTEROL SULF8.5 GM INH (20:04)
[2018-03-26 20:36] VITALS: BP 110/63
== END 2018-03-26 20:36 | disposition home or self-care (01) ==
LOC: EMR 19:17
DX: J06.9 Acute upper respiratory infection, unspecified (principal); R30.0 Dysuria; Z76.0 Encounter for issue of repeat prescription; K58.9 Irritable bowel syndrome, unspecified; E03.9 Hypothyroidism, unspecified; Z88.0 Allergy status to penicillin; Z88.8 Allergy status to other drugs, medicaments and biological substances
CPT/HCPCS: 81003; 99284

== ENCOUNTER 2018-07-02 17:33 | Emergency (ER) | payer MEDICAID ==
[~2018-07-02] VITALS: Ht 152.4 cm; Wt 38.6 kg
[~2018-07-02 17:33] MED LIST changes: +PSEUDOEPHEDRINE30 MG PO
[2018-07-02 17:42] VITALS: BP 130/61
[2018-07-02] MEDS ORDERED: SYNTHROID137 MCG ORAL (17:46)
--- NOTE | 2018-07-02 18:28 | Emergency Room Report ---
History of Present Illness General Chief Complaint: Flu Like Symptoms Source: Patient Present Illness HPI 58-year-old female presents to the emergency department complaining of 9 out of 10 in severity sore throat, cough, nasal congestion and increased phlegm 2 weeks. Patient states that she's been taking [id number] medications with no relief. Patient also reports history of hypothyroid and requires medication refill of her Synthroid as well as only resolved. Patient states she has a history of GERD. Patient reports subjective fevers and chills she states she has not taken anything today for her symptoms as nothing has been working. Patient reports persistent cough. She denies recent travel and reports many ill contacts. Denies CP, Palpitations, LOC, AMS, dizziness, Changes in Vision, Sensation, paresthesias, or a sudden severe headache. Allergies: Coded Allergies: PENICILLINS (Unverified Allergy, Unknown, 11/30/14) CIMETIDINE (Verified Adverse Reaction, Intermediate, 08/25/12) NOT ABLE TO DIGEST IT PER PT CIMETIDINE HCL (Verified Adverse Reaction, Intermediate, 08/25/12) NOT ABLE TO DIGEST IT PER PT Patient History Past Medical History: see triage record Past Surgical History: none Pertinent Family History: none Now: No Immunizations: UTD Reviewed Nursing Documentation: PMH: Agreed; PSxH: Agreed Nursing Documentation-PMH Past Medical History: No History, Except For Hx Cardiac Problems: No - Hypothyroidism Hx Hypertension: No Hx Pacemaker: No Hx Asthma: No Hx COPD: No Hx Diabetes: No Hx Cancer: No Hx Gastrointestinal Problems: Yes - IBS Hx Dialysis: No Hx Neurological Problems: No Hx Cerebrovascular Accident: No Hx Seizures: No Review of Systems All Other Systems: negative except mentioned in HPI Physical Exam Vital Signs Date Time Temp Pulse Resp B/P (MAP) Pulse Ox O2 Delivery O2 Flow Rate FiO2 07/02/18 17:42 98.8 109 18 130/61 95 Room Air Sp02 EP Interpretation: reviewed, normal General Appearance: no apparent distress, alert, GCS 15, non-toxic Head: normocephalic, atraumatic Eyes: bilateral eye normal inspection, bilateral eye PERRL ENT: hearing grossly normal, normal pharynx, normal voice, TMs + canals normal , uvula midline, moist mucus membranes, nasal congestion, pharyngeal erythema - very mild, other - no tonsillar swelling or exudates. Neck: full range of motion, no meningismus Respiratory: chest non-tender, lungs clear, normal breath sounds, no rhonchi, no respiratory distress, no wheezing, speaking full sentences Cardiovascular #1: regular rate, rhythm, tachycardia Musculoskeletal: back normal, gait/station normal, normal range of motion, non- tender Neurologic: alert, oriented x3, responsive, motor strength/tone normal, sensory intact, normal gait, speech normal, grossly normal Psychiatric: judgement/insight normal Skin: normal color, no rash, warm/dry, well hydrated Lymphatic: no adenopathy Medical Decision Making PA Attestation Dr. Hernandez is my supervising physician whom pt. management has been discussed with. Diagnostic Impression: Primary Impression: Bronchitis Additional Impressions: Medication refill Upper respiratory infection Qualified Codes: J06.9 - Acute upper respiratory infection, unspecified ER Course 58-year-old female presents to the emergency department complaining of 9 out of 10 in severity sore throat, cough, nasal congestion and increased phlegm 2 weeks. Patient states that she's been taking [id number] medications with no relief. Patient also reports history of hypothyroid and requires medication refill of her Synthroid as well as only resolved. Patient states she has a history of GERD. Patient reports subjective fevers and chills she states she has not taken anything today for her symptoms as nothing has been working. Patient reports persistent cough. She denies recent travel and reports many ill contacts. Denies CP, Palpitations, LOC, AMS, dizziness, Changes in Vision, Sensation, paresthesias, or a sudden severe headache. Ddx considered but are not limited to URI, pneumonia, PE, strep pharyngitis, meningitis. Vital signs: Pt.is afebrile, and tachycardic, remaining VS are WNL H&PE are most consistent with bronchitis and viral syndrome. No evidence of bacterial/strep infection of the throat- pt. does not meed Cent[facility] criteria. ORDERS: -CXR: unremarkable ED INTERVENTIONS: -Albuterol HHN - Tylenol PO DISCHARGE: At this time pt. is stable for d/c to home. Will provide printed patient care instructions, and any necessary prescriptions. Care plan and follow up instructions have been discussed with the patient prior to discharge. Chest X-Ray Diagnostic Results Chest X-Ray Diagnostic Results : Chest X-Ray Ordered: Yes # of Views/Limited/Complete: 1 View Indication: Other - Productive cough x over 14 days EP Interpretation: Yes PA Xray: Interpretation reviewed Interpretation: no consolidation Impression: Other - hyperinflated Electronically Signed by: Kylah Fraga PA-C Last Vital Signs Date Time Temp Pulse Resp B/P (MAP) Pulse Ox O2 Delivery O2 Flow Rate FiO2 07/02/18 17:42 98.8 109 18 130/61 95 Room Air Status: improved - tachycardia improved, pt. also reports subjective improvement, lungs remained the same: CTA bilaterally Disposition: HOME, SELF-CARE Condition: Stable Scripts Albuterol Sulfate* (ALBUTEROL SULFATE MDI*) 8.5 Gm Hfa.aer.ad 2 PUFF INH Q4H, #1 INH 0 Refills Prov: Kylah Fraga 07/02/18 Cetirizine Hcl/Pseudoephedrine (ZYRTEC-D TABLET) 1 Each Tab.er.12h 1 EACH ORAL Q12HR, #7 TAB Prov: Kylah Fraga 07/02/18 Benzonatate* (BENZONATATE*) 200 Mg Capsule 200 MG ORAL THREE TIMES A DAY, #20 PERLE Prov: Kylah Fraga 07/02/18 Omeprazole (OMEPRAZOLE) 40 Mg Capsule.dr 40 MG ORAL DAILY for 14 Days, #14 CAP Prov: Kylah Fraga 07/02/18 Levothyroxine Sodium* (SYNTHROID*) 100 Mcg Tablet 100 MCG ORAL DAILY for 14 Days, #14 TAB Take in the morning on an empty stomach, at least 30 minutes before food. Prov: Kylah Fraga 07/02/18 Patient Instructions: Acute Bronchitis, [id number], Medicine Refill at the Emergency Department Additional Instructions: Take medications as directed. Follow up with a Primary Care Provider in 3-5 days, even if your symptoms have resolved. --Please review list of primary care clinics, if you do not already have a primary care provider ! This has been a repeat visit that you have requested medication refills and stated that you do not have a PCP, you are given resources for local clinics to establish yourself as a patient to have any future non-emergent medication management. Return sooner to ED if new symptoms occur, or current symptoms become worse. - Please note that this Emergency Department Report was dictated using Dragon bleach analyst technology software, occasionally this can lead to erroneous entry secondary to interpretation by the dictation equipment. Kylah Fraga Jul 02, 2018 18:28
[2018-07-02] MEDS ORDERED: OMEPRAZOLE40 M1 ORAL (18:30)
[2018-07-02] MEDS ORDERED: BENZONATATE200 MG ORAL (18:30)
[2018-07-02] MEDS ORDERED: ZYRTEC-D TABLE1 EACH ORAL (18:30)
[2018-07-02] MEDS ORDERED: SYNTHROID100 MCG ORAL (18:30)
[2018-07-02] MEDS ORDERED: ALBUTEROL SULF8.5 GM INH (18:45)
[2018-07-02] MEDS ORDERED: Albuterol ud Inhalation HHN ONE (19:30)
[2018-07-02 20:26] VITALS: BP 131/68
--- NOTE | 2018-07-03 09:49 | Diagnostic Imaging Report ---
Indication: Cough Technique: One view of the chest Comparison: For 2017 Findings: Lungs and pleural spaces are clear. The heart size is normal. There is minimal bilateral apical pleural thickening . No significant interim change Impression: No acute process
== END 2018-07-02 20:26 | disposition home or self-care (01) ==
LOC: EMR 18:00
DX: J06.9 Acute upper respiratory infection, unspecified (principal); J40 Bronchitis, not specified as acute or chronic; E03.9 Hypothyroidism, unspecified; Z76.0 Encounter for issue of repeat prescription; K58.9 Irritable bowel syndrome, unspecified; Z88.0 Allergy status to penicillin; Z88.8 Allergy status to other drugs, medicaments and biological substances
CPT/HCPCS: 71045; 94640; 94664; 99284

== ENCOUNTER 2018-10-08 19:00 | Emergency (ER) | payer MEDICAID ==
[~2018-10-08] VITALS: Ht 157.5 cm; Wt 39.0 kg
[~2018-10-08 19:00] MED LIST changes: +BENZONATATE200 MG ORAL; +SYNTHROID137 MCG ORAL; +ZYRTEC-D TABLE1 EACH ORAL
[2018-10-08 19:15] VITALS: BP 114/68
--- NOTE | 2018-10-08 19:15 | NUR ---
ED Nurse Note: pt walked in due to left upper abdominal pain started 1500 today. denies vomiting. patient rates her pain a 8/10 pain that is located on the upper right abdomen, patient is alert and oriented x4, ambulatory with a steady gait, VSS
--- NOTE | 2018-10-08 19:25 | NUR ---
HAND-OFF: Report given to SCAR Briceño.
[2018-10-08] MEDS ORDERED: Dicyclomine HCl 10mg/5ml oral soln ORAL ONE (19:30)
[2018-10-08] MEDS ORDERED: Lidocaine 2% Visc 15ml soln ORAL ONE (19:30)
[2018-10-08] MEDS ORDERED: DICYCLOMINE HCL10 MG PO (20:46)
[2018-10-08] MEDS ORDERED: OMEPRAZOLE40 M1 ORAL (21:51)
[2018-10-08] MEDS ORDERED: MIRALAX119 GM PO (21:51)
[2018-10-08] MEDS ORDERED: SYNTHROID100 MCG ORAL (22:04)
[2018-10-08 23:03] VITALS: BP 118/66
[2018-10-08 23:04] VITALS: BP 114/68
--- NOTE | 2018-10-08 23:04 | NUR ---
ER DISCHARGE NOTE: Patient is cleared to be discharged per ERMD, pt is aox4, on room air, with stable vital signs. pt was given dc and prescription instructions, pt was able to verbalize understanding, pt id band and iv site removed without complications. pt is able to ambulate with steady gait. pt took all belongings.
--- NOTE | 2018-10-08 23:36 | Emergency Room Report ---
History of Present Illness General Chief Complaint: Abdominal Pain Present Illness HPI Patient is a 58-year-old female who presented after increased left-sided abdominal pain. Patient was noted to have increased pain to the left lower abdomen. She had prior history of irritable bowel syndrome. Patient states that she had similar pain in the past. She denies any vomiting. She denies any severe pain. She reports having decreased bowel movements. She had multiple visits for previous similar symptoms. Allergies: Coded Allergies: PENICILLINS (Unverified Allergy, Unknown, 11/30/14) CIMETIDINE (Verified Adverse Reaction, Intermediate, 08/25/12) NOT ABLE TO DIGEST IT PER PT CIMETIDINE HCL (Verified Adverse Reaction, Intermediate, 08/25/12) NOT ABLE TO DIGEST IT PER PT Patient History Past Medical History: see triage record Last Menstrual Period: 10 years ago Now: No : 0 Reviewed Nursing Documentation: PMH: Agreed; PSxH: Agreed Nursing Documentation-PMH Hx Cardiac Problems: No - Hypothyroidism Hx Hypertension: No Hx Pacemaker: No Hx Asthma: No Hx COPD: No Hx Diabetes: No Hx Cancer: No Hx Gastrointestinal Problems: Yes - IBS Hx Dialysis: No Hx Neurological Problems: No Hx Cerebrovascular Accident: No Hx Seizures: No Review of Systems All Other Systems: negative except mentioned in HPI Physical Exam Vital Signs Date Time Temp Pulse Resp B/P (MAP) Pulse Ox O2 Delivery O2 Flow Rate FiO2 10/08/18 19:07 98.2 100 16 114/68 93 Room Air General Appearance: well appearing, no apparent distress, alert, GCS 15 Head: normocephalic, atraumatic ENT: hearing grossly normal, normal voice Neck: full range of motion, supple Respiratory: no respiratory distress, speaking full sentences Cardiovascular #1: normal inspection, regular rate, rhythm, no edema Gastrointestinal: normal inspection, normal bowel sounds, non tender, soft Musculoskeletal: no calf tenderness Neurologic: normal inspection, alert, oriented x3, responsive, ethylene plant operator III-XII nml as tested, normal gait Psychiatric: mood/affect normal Skin: no rash Medical Decision Making Diagnostic Impression: Primary Impression: Irritable bowel syndrome ER Course Patient presented for abdominal pain. Patient has a benign exam and does not appear to require any laboratory testing at this time KUB one view interpreted by me showed nonspecific bowel gas pattern without evident obstruction. Patient was given a GI cocktail with improvement in her symptoms. Patient was given prescriptions for medications for symptomatic treatment. the patient is advised to follow up with primary care doctor in 1-2 days. Patient is advised to return if any worsening condition or if any changes in status that are concerning. This report is dictated with [employer] global chief experience officer software which may occasionally lead to discrepancies related to use of this software. Last Vital Signs Date Time Temp Pulse Resp B/P (MAP) Pulse Ox O2 Delivery O2 Flow Rate FiO2 10/08/18 23:04 98.2 82 16 114/68 93 Room Air Status: improved Disposition: HOME, SELF-CARE Condition: Stable Scripts Levothyroxine Sodium* (SYNTHROID*) 100 Mcg Tablet 100 MCG ORAL DAILY, #30 TAB Take in the morning on an empty stomach, at least 30 minutes before food. Prov: Jamie Gloria MD 10/08/18 Polyethylene Glycol 3350 (MIRALAX) 119 Gm Powder 119 GM PO DAILY for constipation, #119 GM Prov: Jamie Gloria MD 10/08/18 Omeprazole (OMEPRAZOLE) 40 Mg Capsule.dr 40 MG ORAL DAILY, #30 CAP Prov: Jamie Gloria MD 10/08/18 Dicyclomine Hcl* (DICYCLOMINE HCL*) 10 Mg Capsule 10 MG PO QID, #30 CAP Prov: Jamie Gloria MD 10/08/18 Referrals: [facility]ERR[facility] (PCP) Patient Instructions: Abdominal Pain, Adult Jamie Gloria MD Oct 08, 2018 23:36
--- NOTE | 2018-10-09 11:10 | Diagnostic Imaging Report ---
Indication: Abdominal pain Technique: Supine view of the abdomen Comparison: none Findings: Unremarkable bowel gas pattern. No unusual calcifications or masses. The bones are unremarkable Impression: Negative
== END 2018-10-08 23:05 | disposition home or self-care (01) ==
LOC: EMR 19:26
DX: K58.9 Irritable bowel syndrome, unspecified (principal); Z88.0 Allergy status to penicillin; Z88.8 Allergy status to other drugs, medicaments and biological substances; E03.9 Hypothyroidism, unspecified
CPT/HCPCS: 74018; 99283

== ENCOUNTER 2018-11-30 15:37 | Emergency (ER) | payer MEDICAID ==
[~2018-11-30] VITALS: Ht 157.5 cm; Wt 39.0 kg
[~2018-11-30 15:37] MED LIST changes: +DICYCLOMINE HCL10 MG PO; +MIRALAX119 GM PO
--- NOTE | 2018-11-30 15:55 | NUR ---
ED Nurse Note: Patient walked into Ed s/p fall today on ground level about 3 hours prior to arrival, patient reports she hurt her right shoulder right forearm to right wrist. patient is alert awake x4 ambulatory, breathing even and unlabored.
--- NOTE | 2018-11-30 16:23 | Emergency Room Report ---
History of Present Illness General Chief Complaint: Upper Extremity Injury Source: Patient Present Illness HPI 58-year-old female presents to the emergency department complaining of 10 out of 10 in severity pain that is localized to the right wrist and right shoulder status post mechanical trip and fall with landing on an outstretched arm. She denies hitting her head or having loss of consciousness she denies midline neck or back pain. Patient denies dizziness chest pain palpitations or headache prior to fall. Allergies: Coded Allergies: PENICILLINS (Unverified Allergy, Unknown, 11/30/14) CIMETIDINE (Verified Adverse Reaction, Intermediate, 08/25/12) NOT ABLE TO DIGEST IT PER PT CIMETIDINE HCL (Verified Adverse Reaction, Intermediate, 08/25/12) NOT ABLE TO DIGEST IT PER PT Patient History Past Medical History: see triage record Past Surgical History: none Pertinent Family History: none Now: No Reviewed Nursing Documentation: PMH: Agreed; PSxH: Agreed Nursing Documentation-PMH Past Medical History: No History, Except For Hx Cardiac Problems: No - Hypothyroidism Hx Hypertension: No Hx Pacemaker: No Hx Asthma: No Hx COPD: No Hx Diabetes: No Hx Cancer: No Hx Gastrointestinal Problems: Yes - IBS Hx Dialysis: No Hx Neurological Problems: No Hx Cerebrovascular Accident: No Hx Seizures: No Review of Systems All Other Systems: negative except mentioned in HPI Physical Exam Vital Signs Date Time Temp Pulse Resp B/P (MAP) Pulse Ox O2 Delivery O2 Flow Rate FiO2 11/30/18 15:48 98.4 115 20 126/57 94 Room Air Sp02 EP Interpretation: reviewed, normal General Appearance: alert, GCS 15, non-toxic, mild distress Head: normocephalic, atraumatic Eyes: bilateral eye normal inspection, bilateral eye PERRL ENT: hearing grossly normal, normal voice Neck: full range of motion Respiratory: lungs clear, normal breath sounds, speaking full sentences Cardiovascular #1: regular rate, rhythm, no edema, normal capillary refill Cardiovascular #2: 2+ radial (R), 2+ radial (L) Musculoskeletal: back normal, gait/station normal, normal range of motion, tender - right wrist, swelling , bruising, pain with ROM. TTP to the right lateral shoulder as well, pain with ROM. Neurologic: alert, oriented x3, responsive, motor strength/tone normal, sensory intact, normal gait, speech normal, grossly normal Psychiatric: judgement/insight normal Skin: no rash, warm/dry, well hydrated, other - contusion right wrist. Medical Decision Making PA Attestation Dr. Swanson is my supervising Physician whom patient management has been discussed with. Diagnostic Impression: Primary Impression: Radius and ulna distal fracture Qualified Codes: S52.501A - Unspecified fracture of the lower end of right radius, initial encounter for closed fracture; S52.601A - Unspecified fracture of lower end of right ulna, initial encounter for closed fracture ER Course 58-year-old female presents to the emergency department complaining of 10 out of 10 in severity pain that is localized to the right wrist and right shoulder status post mechanical trip and fall with landing on an outstretched arm. She denies hitting her head or having loss of consciousness she denies midline neck or back pain. Patient denies dizziness chest pain palpitations or headache prior to fall. Ddx considered but are not limited to Fracture, dislocation, contusion, Sprain/ Strain/Spasm, Vital signs: are WNL, pt. is afebrile H&PE are most consistent with musculoskeletal injury will perform imaging to r/ o fractures/dislocations. ORDERS: - Xray Right Wrist : POSITIVE for distal radial and ulnar fx's non-displaced. - X-ray Right Shoulder - negative for fx, Dislocation, or significant soft tissue injury, per preliminary read in ED, and signed by FER Fraga, my supervising physician has reviewed, and agrees with my interpretation. ED INTERVENTIONS: - Vardaman PO -Right Colles wrist Splint applied by information technology associate. Pt. remains neurovascularly intact. -- Right arm Sling applied by information technology associate. Pt. remains neurovascularly intact. DISCHARGE: At this time pt. is stable for d/c to home. Will provide printed patient care instructions, and any necessary prescriptions. Care plan and follow up instructions have been discussed with the patient prior to discharge. Other X-Ray Diagnostic Results Other X-Ray Diagnostic Results #1: X-Ray ordered: Right Wrist # of Views/Limited Vs Complete: 3 View Indication: Pain EP Interpretation: Yes PA Xray: Interpretation reviewed, by supervising MD, and agrees with findings. Interpretation: no dislocation, no soft tissue swelling, other - POSITIVE FOR DISTAL RADIAL AND ULNAR FRACTURES-NONDISPLACED Impression: Other - abnormal Electronically Signed by: Kylah Fraga PA-C Other X-Ray Diagnostic Results #2: X-Ray ordered: Right Shoulder # of Views/Limited Vs Complete: 3 View Indication: Pain EP Interpretation: Yes PA Xray: Interpretation reviewed, by supervising MD, and agrees with findings. Interpretation: no dislocation, no soft tissue swelling, no fractures Impression: No acute disease Electronically Signed by: Kylah Fraga PA-C Last Vital Signs Date Time Temp Pulse Resp B/P (MAP) Pulse Ox O2 Delivery O2 Flow Rate FiO2 11/30/18 15:48 98.4 115 20 126/57 94 Room Air Status: improved Disposition: HOME, SELF-CARE Condition: Stable Scripts Ibuprofen* (MOTRIN*) 600 Mg Tablet 600 MG ORAL THREE TIMES A DAY, #28 TAB 0 Refills Prov: Kylah Fraga 11/30/18 Hydrocodone Bit/Acetaminophen 5-325* (NORCO 5-325*) 1 Each Tablet 1 TAB ORAL Q6H PRN for For Pain, #15 TAB 0 Refills Prov: Kylah Fraga 11/30/18 Omeprazole (OMEPRAZOLE) 40 Mg Capsule.dr 40 MG ORAL DAILY, #30 CAP Prov: Kylah Fraga 11/30/18 Levothyroxine Sodium* (SYNTHROID*) 100 Mcg Tablet 100 MCG ORAL DAILY, #30 TAB Take in the morning on an empty stomach, at least 30 minutes before food. Prov: Kylah Fraga 11/30/18 Referrals: NON PHYSICIAN (PCP) Additional Instructions: Take medications as directed. Follow up with an INVENTORY ANALYST in 3-5 days, even if your symptoms have resolved. If symptoms persist MRI may be required at the discretion of your PCP or Ortho Specialist. --Please review list of primary care clinics, if you do not already have a primary care provider who can give you an Orthopedic Referral. Return sooner to ED if new symptoms occur, or current symptoms become worse. Do not drink alcohol, drive, or operate heavy machinery while taking Vardaman as this may cause drowsiness. - Please note that this Emergency Department Report was dictated using [employer] fireman technology software, occasionally this can lead to erroneous entry secondary to interpretation by the dictation equipment. Kylah Fraga Nov 30, 2018 16:23
[2018-11-30] MEDS ORDERED: HYDROcodone/Acetamin 5/325 tab ORAL ONE (16:30)
--- NOTE | 2018-11-30 16:49 | Diagnostic Imaging Report ---
Clinical Indication:Ground-level fall 3 hours earlier, right wrist pain Technique: 3 views of the right wrist Comparison: None Findings: There is a transverse fracture of the distal radius. This is minimally displaced. There is a nondisplaced fracture of the ulnar styloid. Bones are osteoporotic. No carpal fracture demonstrated. The joint spaces are preserved Impression: Positive for distal radial and ulnar fractures Findings discussed by phone with Kylah Fraga in the emergency room at the time of interpretation
--- NOTE | 2018-11-30 16:59 | Diagnostic Imaging Report ---
Indication: Right shoulder pain Technique: 3 views of the right shoulder Comparison: none Findings: No acute fractures. No dislocations. The joint spaces are preserved. Impression: No acute process
[2018-11-30] MEDS ORDERED: SYNTHROID100 MCG ORAL (17:19)
[2018-11-30] MEDS ORDERED: OMEPRAZOLE40 M1 ORAL (17:19)
[2018-11-30] MEDS ORDERED: NORCO 5-325 TA1 EACH ORAL (17:19)
[2018-11-30] MEDS ORDERED: IBUPROFEN600 MG ORAL (17:19)
[2018-11-30 17:50] VITALS: BP 126/57
[2018-11-30 17:51] VITALS: BP 126/57
--- NOTE | 2018-11-30 17:51 | NUR ---
ER DISCHARGE NOTE: Patient is cleared to be discharged per ER FER LUIS, pt is aox4, on room air, with stable vital signs. pt was given dc and prescription instructions, pt was able to verbalize understanding, pt id band removed without complications. pt is able to ambulate with steady gait. pt took all belongings.
== END 2018-11-30 17:50 | disposition home or self-care (01) ==
LOC: EMR 16:20
DX: S52.501A Unspecified fracture of the lower end of right radius, initial encounter for closed fracture (principal); S52.601A Unspecified fracture of lower end of right ulna, initial encounter for closed fracture; W01.0XXA Fall on same level from slipping, tripping and stumbling without subsequent striking against object, initial encounter; Y92.9 Unspecified place or not applicable; Z88.0 Allergy status to penicillin; Z88.8 Allergy status to other drugs, medicaments and biological substances; E03.9 Hypothyroidism, unspecified
CPT/HCPCS: 29125; 99284

== ENCOUNTER 2018-12-03 18:03 | Emergency (ER) | payer MEDICAID ==
[~2018-12-03] VITALS: Ht 157.5 cm; Wt 38.1 kg
[2018-12-03 18:12] VITALS: BP 134/59
--- NOTE | 2018-12-03 18:20 | NUR ---
ED Nurse Note: Patient presents to ER due to right wrist pain and bruises. Patient seen by us on 11/30/18 and dx with right wrist fracture. Patient arrived here without splint. c/o increased bruise, pain on the right wrist. Patient able to wiggle right fingers with cap refill < 3 sec. Sensation remained intact.
[2018-12-03] MEDS ORDERED: Ketorolac 60mg Inj IM ONE (18:45)
--- NOTE | 2018-12-03 18:57 | NUR ---
ED Nurse Note: Urine collected and sent.
--- NOTE | 2018-12-03 19:13 | NUR ---
ED Nurse Note: Report given to SCAR Latif. Patient taken down for right wrist x-ray.
--- NOTE | 2018-12-03 19:14 | NUR ---
ED Nurse Note: Received report from Coco/SCAR. Pt is a/ox 4, c/o right forearm possible fracture. VSS. pt was sent down for x-ray.
--- NOTE | 2018-12-03 19:15 | Emergency Room Report ---
History of Present Illness General Chief Complaint: Upper Extremity Injury Source: Patient Present Illness HPI This patient fell 2 days ago and suffered a fracture of her distal right radius and ulna. She had tripped and fell. She states that that she has been using the splint that she was given here but has had increased bruising and pain in her right wrist. She also complains of pain in her right flank. She states that this started yesterday. She denies dysuria or hematuria. She denies cough or congestion. She denies fever or chills. She denies chest pain or shortness of breath. She has no other complaints. Allergies: Coded Allergies: PENICILLINS (Unverified Allergy, Unknown, 11/30/14) CIMETIDINE (Verified Adverse Reaction, Intermediate, 08/25/12) NOT ABLE TO DIGEST IT PER PT CIMETIDINE HCL (Verified Adverse Reaction, Intermediate, 08/25/12) NOT ABLE TO DIGEST IT PER PT Patient History Past Medical History: see triage record, other - hypothyroid Social History: Denies: smoking, alcohol use, drug use Last Menstrual Period: menopause Now: No Reviewed Nursing Documentation: PMH: Agreed; PSxH: Agreed Nursing Documentation-PMH Hx Cardiac Problems: No - Hypothyroidism Hx Hypertension: No Hx Pacemaker: No Hx Asthma: No Hx COPD: No Hx Diabetes: No Hx Cancer: No Hx Gastrointestinal Problems: Yes - IBS Hx Dialysis: No Hx Neurological Problems: No Hx Cerebrovascular Accident: No Hx Seizures: No Review of Systems All Other Systems: negative except mentioned in HPI Physical Exam Vital Signs Date Time Temp Pulse Resp B/P (MAP) Pulse Ox O2 Delivery O2 Flow Rate FiO2 12/03/18 18:12 98.4 100 16 94 Room Air Sp02 EP Interpretation: reviewed, normal General Appearance: no apparent distress, alert, GCS 15, non-toxic Head: normocephalic, atraumatic Eyes: bilateral eye normal inspection, bilateral eye PERRL ENT: hearing grossly normal, normal pharynx, no angioedema, normal voice Neck: normal inspection Respiratory: no respiratory distress, no retraction, no accessory muscle use, speaking full sentences, other - +TTP R. lower ribcage Gastrointestinal: normal bowel sounds, non tender, soft, non-distended, no guarding, no rebound Rectal: deferred Musculoskeletal: back normal, gait/station normal, other - Ecchymosis over R. wrist, distal forarm and proximal hand with color changes c/w old ecchymosis Neurologic: alert, oriented x3, responsive, motor strength/tone normal, sensory intact, speech normal Psychiatric: judgement/insight normal, memory normal, mood/affect normal, no suicidal/homicidal ideation Skin: normal color, no rash, warm/dry, well hydrated Medical Decision Making Diagnostic Impression: Primary Impression: Colles' fracture Additional Impression: Radial styloid fracture ER Course This patient has a clinical presentation consistent with pain related to her distal radius and ulna fracture. There is ecchymoses surrounding the fracture site which is to be expected. Repeat wrist x-ray shows no change in alignment and appropriate alignment for healing without need for reduction. There is no evidence of compartment syndrome. There is no neurologic deficit. I placed the patient in a plaster sugar tong splint. She was also given a sling. The previously placed prefabricated splint was discarded. The patient was instructed to follow-up at the orthopedic urgent care clinic within the next 72 hours. The patient had some flank pain on her right. Urinalysis was obtained which was unremarkable. I also obtained rib x-rays as a precaution and there is no evidence of rib fracture. The patient's physical exam was also benign. I do not feel like any further imaging was indicated. The patient was instructed on supportive home measures. No emergency medical condition was identified. The patient was given return precautions and followup instructions. Laboratory Tests Test 12/03/18 18:50 Urine Color Pale yellow Urine Appearance Clear Urine pH 8 (4.5-8.0) Urine Specific [place] 1.010 (1.005-1.035) Urine Protein Negative (NEGATIVE) Urine Glucose (UA) Negative (NEGATIVE) Urine Ketones Negative (NEGATIVE) Urine Blood Negative (NEGATIVE) Urine Nitrite Negative (NEGATIVE) Urine Bilirubin Negative (NEGATIVE) Urine Urobilinogen Normal MG/DL (0.0-1.0) Urine Leukocyte Esterase 1+ (NEGATIVE) H Urine RBC 0-2 /HPF (0 - 2) Urine WBC 0-2 /HPF (0 - 2) Urine Squamous Epithelial Cells Occasional /LPF Urine Bacteria Occasional /HPF (NONE) Laboratory Tests Test 12/03/18 18:50 Urine Color Pale yellow Urine Appearance Clear Urine pH 8 (4.5-8.0) Urine Specific [place] 1.010 (1.005-1.035) Urine Protein Negative (NEGATIVE) Urine Glucose (UA) Negative (NEGATIVE) Urine Ketones Negative (NEGATIVE) Urine Blood Negative (NEGATIVE) Urine Nitrite Negative (NEGATIVE) Urine Bilirubin Negative (NEGATIVE) Urine Urobilinogen Normal MG/DL (0.0-1.0) Urine Leukocyte Esterase 1+ (NEGATIVE) H Urine RBC Pending Urine WBC Pending Urine Squamous Epithelial Cells Pending Urine Bacteria Pending Other X-Ray Diagnostic Results Other X-Ray Diagnostic Results : X-Ray ordered: R. wrist, R. ribs # of Views/Limited Vs Complete: Complete Indication: Pain EP Interpretation: Yes Interpretation: other - Nondisplaced distal radius and ulnar styloid fracture. Rib xrays: No acute findings. No fx. No acute disease. Impression: No acute disease Electronically Signed by: Radha Hoffman DO Last Vital Signs Date Time Temp Pulse Resp B/P (MAP) Pulse Ox O2 Delivery O2 Flow Rate FiO2 12/03/18 18:12 98.4 100 16 94 Room Air Status: improved Disposition: HOME, SELF-CARE Condition: Improved Radha Hoffman DO December 03, 2018 19:15
[2018-12-03 19:17] LABS: APPEARANCE,URINE CLEAR; BILIRUBIN, URINE NEGATIVE (NEGATIVE); COLOR,URINE PALE YELLOW; GLUCOSE, URINE (UA) NEGATIVE (NEGATIVE); KETONES,URINE NEGATIVE (NEGATIVE); LEUKOCYTE ESTERASE ,URINE 1+ (NEGATIVE); NITRITE,URINE NEGATIVE (NEGATIVE); PH,URINE 8 (4.5-8.0); PROTEIN,URINE NEGATIVE (NEGATIVE); UROBILINOGEN,URINE NORMAL MG/DL (0.0-1.0)
--- NOTE | 2018-12-03 19:23 | NUR ---
ED Nurse Note: Pt returned from X-ray.
[2018-12-03] MEDS ORDERED: ACETAMINOPHEN-1 EAC1 ORAL (20:14)
[2018-12-03 20:47] VITALS: BP 132/63
--- NOTE | 2018-12-03 20:47 | NUR ---
ER DISCHARGE NOTE: Patient is cleared to be discharged per Dr. Hoffman. X-ray done, Splin applied to right forearm. Pt is aox4 on room air with stable vital signs. Pt was given D/C and prescription instructions and was able to verbalize understanding. Pt's ID band removed. Pt is able to ambulate with steady gait and took all belongings.
--- NOTE | 2018-12-04 14:38 | Diagnostic Imaging Report ---
Clinical Indication:Trauma, pain, recent history of fracture Technique: 3 views of the right wrist Comparison: 11/30/2018 Findings: Again demonstrated is a transverse fracture of the distal radius and of the ulnar styloid. The radial fracture is less apparent than on the prior study. These are nondisplaced. No new fractures. No carpal fracture demonstrated. Impression: Essentially unchanged, over 3 days, distal radial and ulnar fractures, as described
--- NOTE | 2018-12-04 14:52 | Diagnostic Imaging Report ---
Indication: Pain, status post fall Technique: One view of the chest, 2 views of the right ribs Comparison: Chest radiograph dated 07/02/2018 Findings: Lungs and pleural spaces are clear. Heart size is normal. No evidence of rib fracture or pneumothorax. Heart size is normal Impression: No acute process
== END 2018-12-03 20:47 | disposition home or self-care (01) ==
LOC: EMR 18:50
DX: S52.531A Colles' fracture of right radius, initial encounter for closed fracture (principal); S52.514A Nondisplaced fracture of right radial styloid process, initial encounter for closed fracture; W01.0XXA Fall on same level from slipping, tripping and stumbling without subsequent striking against object, initial encounter; Y92.9 Unspecified place or not applicable; Z88.0 Allergy status to penicillin; Z88.8 Allergy status to other drugs, medicaments and biological substances
CPT/HCPCS: 29125; 81003; 96372; 99284

== ENCOUNTER 2018-12-24 17:31 | Emergency (ER) | payer MEDICAID ==
[~2018-12-24] VITALS: Ht 152.4 cm; Wt 38.6 kg
[~2018-12-24 17:31] MED LIST changes: +ACETAMINOPHEN-1 EAC1 ORAL
[2018-12-24 17:33] VITALS: BP 126/73
--- NOTE | 2018-12-24 18:42 | Emergency Room Report ---
History of Present Illness General Chief Complaint: Pain Source: Patient Present Illness HPI 58-year-old female with history of hypothyroidism and gastritis currently controlled here complaining of worsening pain in the right wrist x3 weeks. Patient was here 3 weeks ago after a fall x-ray was done of her wrist and she was discharged with a cold fracture of right wrist given a list of family clinics to walk in as she claims she has no primary care provider. Also a short arm splint was applied however patient complained of pressure and took it off on her own few days after. Ports that she never followed up with the product delivery specialist, has been taking Tylenol with codeine as needed. Of tingling in the wrist radiating to her forearm. Denies any other injury. Also is asking a refill for her Synthroid and omeprazole has not seen a family practitioner in years. She reports that she usually goes to the emergency room and her last thyroid check was 2 months ago at the emergency room. Denies headache, dizziness, chest pain, palpitation, shortness of breath and all other associated symptoms Allergies: Coded Allergies: PENICILLINS (Unverified Allergy, Unknown, 11/30/14) CIMETIDINE (Verified Adverse Reaction, Intermediate, 08/25/12) NOT ABLE TO DIGEST IT PER PT CIMETIDINE HCL (Verified Adverse Reaction, Intermediate, 08/25/12) NOT ABLE TO DIGEST IT PER PT Patient History Past Medical History: see triage record Past Surgical History: unable to obtain Pertinent Family History: none Now: No Immunizations: UTD Reviewed Nursing Documentation: PMH: Agreed; PSxH: Agreed Nursing Documentation-PMH Past Medical History: No History, Except For Hx Cardiac Problems: No - Hypothyroidism Hx Hypertension: No Hx Pacemaker: No Hx Asthma: No Hx COPD: No Hx Diabetes: No Hx Cancer: No Hx Gastrointestinal Problems: Yes - IBS Hx Dialysis: No Hx Neurological Problems: No Hx Cerebrovascular Accident: No Hx Seizures: No Review of Systems All Other Systems: negative except mentioned in HPI Physical Exam Vital Signs Date Time Temp Pulse Resp B/P (MAP) Pulse Ox O2 Delivery O2 Flow Rate FiO2 12/24/18 17:33 98.2 101 18 126/73 98 Room Air Sp02 EP Interpretation: reviewed, normal General Appearance: normal inspection, well appearing, no apparent distress, alert Head: normocephalic, atraumatic Eyes: bilateral eye normal inspection, bilateral eye PERRL ENT: normal ENT inspection, hearing grossly normal, normal pharynx Neck: normal inspection, full range of motion, supple Respiratory: normal inspection, chest non-tender, lungs clear, normal breath sounds Cardiovascular #1: normal inspection, normal peripheral pulses, regular rate, rhythm, no murmur Cardiovascular #2: 2+ radial (R), 2+ radial (L) Gastrointestinal: normal inspection, soft Musculoskeletal: back normal, digits/nails normal, other - deformity of both hands secondary to arthritis, Neurologic: normal inspection, alert Psychiatric: normal inspection, judgement/insight normal Skin: normal inspection, normal color, no rash Lymphatic: normal inspection, no adenopathy Medical Decision Making PA Attestation All my diagnosis and treatment plans were reviewed ad discussed with my supervising physician Dr. Charles Diagnostic Impression: Primary Impression: Unspecified fracture of right wrist and hand, sequela Additional Impression: Medication refill ER Course 58-year-old female with history of hypothyroidism and gastritis currently controlled here complaining of worsening pain in the right wrist x3 weeks. Patient was here 3 weeks ago after a fall x-ray was done of her wrist and she was discharged with a cold fracture of right wrist given a list of family clinics to walk in as she claims she has no primary care provider. Also a short arm splint was applied however patient complained of pressure and took it off on her own few days after. Ports that she never followed up with the product delivery specialist, has been taking Tylenol with codeine as needed. Of tingling in the wrist radiating to her forearm. Denies any other injury. Also is asking a refill for her Synthroid and omeprazole has not seen a family practitioner in years. She reports that she usually goes to the emergency room and her last thyroid check was 2 months ago at the emergency room. Denies headache, dizziness, chest pain, palpitation, shortness of breath and all other associated symptoms Ddx considered but are not limited to: right wrist sprain, wrist fracture, wrist strain Vital signs: are WNL, pt. is afebrile H&PE are most consistent with: old wrist fracture, medication refill for gastritis and hypothyroidism ORDERS: right wrist Xray, naproxen, omeprazole and synthroid limited amount, voltaren gel ED INTERVENTIONS: None required at this time. DISCHARGE: At this time pt. is stable for d/c to home. Will provide printed patient care instructions, and any necessary prescriptions. Care plan and follow up instructions have been discussed with the patient prior to discharge. Gave patient a list of referrals for family clinics to walk-in and get a referral to product delivery specialist, patient refused to apply any other splint as she took the old one off however the fracture is old and no need for splint at this point patient kept asking whether her hand is misplaced, is not healing she does not understand that the fact that she did not follow-up with product delivery specialist made her symptoms worse I also told her that she needs to see a primary care provider for more routine management of her hypothyroidism and gastritis gave her 2-week supply of omeprazole and Synthroid Other X-Ray Diagnostic Results Other X-Ray Diagnostic Results : X-Ray ordered: Wrist # of Views/Limited Vs Complete: 3 View Indication: Pain EP Interpretation: Yes PA Xray: by supervising MD, and agrees with findings. Interpretation: other - old fx right wrist Last Vital Signs Date Time Temp Pulse Resp B/P (MAP) Pulse Ox O2 Delivery O2 Flow Rate FiO2 12/24/18 17:33 98.2 101 18 126/73 (90) 98 Room Air Disposition: HOME, SELF-CARE Condition: Stable Scripts Levothyroxine Sodium* (SYNTHROID*) 100 Mcg Tablet 100 MCG ORAL DAILY, #14 TAB Take in the morning on an empty stomach, at least 30 minutes before food. Prov: Maria Cuellar 12/24/18 Omeprazole (OMEPRAZOLE) 40 Mg Capsule.dr 40 MG ORAL DAILY, #10 CAP Prov: Maria Cuellar 12/24/18 Diclofenac Sodium (VOLTAREN) 100 Gm Gel..gram. 2 GM TP BID, #100 GM Prov: Maria Cuellar 12/24/18 Naproxen* (NAPROSYN*) 250 Mg Tablet 250 MG ORAL TWICE A DAY, #20 TAB 0 Refills Prov: Maria Cuellar 12/24/18 Referrals: [facility],REFERRING (PCP) Patient Instructions: Scaphoid Fracture, Wrist Additional Instructions: Along with a primary care provider for referral to product delivery specialist you did not wear the splint as it was applied to your wrist 3 weeks ago, and you never followed up with a specialist proper management to be done with product delivery specialist may be MRI is needed at this point no further imaging is going to be performed in the emergency room as this is considered a chronic condition. Follow-up with a primary care provider for assessment of hypothyroidism and gastritis your thyroid hormone level should be checked frequently with your primary care provider Maria Cuellar December 24, 2018 18:41
[2018-12-24] MEDS ORDERED: SYNTHROID100 MCG ORAL (18:44)
[2018-12-24] MEDS ORDERED: VOLTAREN100 G1 TP (18:44)
[2018-12-24] MEDS ORDERED: NAPROXEN250 MG ORAL (18:44)
[2018-12-24] MEDS ORDERED: OMEPRAZOLE40 M1 ORAL (18:44)
[2018-12-24 18:52] VITALS: BP 126/73
--- NOTE | 2018-12-25 11:27 | Diagnostic Imaging Report ---
Indication: Right wrist pain Findings: 3 views of the right wrist were obtained. There is impacted fracture of the distal radius with some comminution. The bones are osteopenic. Soft tissue swelling noted. There is an ulnar styloid fracture also present. IMPRESSION: Acute fractures as described above
== END 2018-12-24 18:54 | disposition home or self-care (01) ==
LOC: EMR 17:58
DX: S52.501A Unspecified fracture of the lower end of right radius, initial encounter for closed fracture (principal); S52.611A Displaced fracture of right ulna styloid process, initial encounter for closed fracture; W19.XXXA Unspecified fall, initial encounter; Y92.9 Unspecified place or not applicable; Z76.0 Encounter for issue of repeat prescription; E03.9 Hypothyroidism, unspecified; Z88.0 Allergy status to penicillin; Z88.8 Allergy status to other drugs, medicaments and biological substances
CPT/HCPCS: 99283

== ENCOUNTER 2019-01-07 18:05 | Emergency (ER) | payer MEDICAID ==
[~2019-01-07] VITALS: Ht 157.5 cm; Wt 39.9 kg
[~2019-01-07 18:05] MED LIST changes: +NAPROXEN250 MG ORAL; +VOLTAREN100 G1 TP
[2019-01-07 18:15] VITALS: BP 126/80
[2019-01-07] MEDS ORDERED: Ketorolac 60mg Inj IM ONE (18:30)
--- NOTE | 2019-01-07 18:30 | Emergency Room Report ---
History of Present Illness General Chief Complaint: Pain Source: Patient Present Illness HPI 58-year-old female with history of hypothyroidism, asthma, irritable bowel syndrome presents with right shoulder pain, feels like a tender axilla area, has some pain with range of motion, denies recent trauma reports the pain is achy, no relief with ibuprofen. Reports no fevers, no shortness of breath, but does report she would like to get a CT scan of her shoulder as well as prescriptions for omeprazole and Synthroid. He also would like some sort of injection for her pain. Allergies: Coded Allergies: PENICILLINS (Unverified Allergy, Unknown, 11/30/14) CIMETIDINE (Verified Adverse Reaction, Intermediate, 08/25/12) NOT ABLE TO DIGEST IT PER PT CIMETIDINE HCL (Verified Adverse Reaction, Intermediate, 08/25/12) NOT ABLE TO DIGEST IT PER PT Patient History Past Medical History: see triage record Reviewed Nursing Documentation: PMH: Agreed; PSxH: Agreed Nursing Documentation-PMH Hx Cardiac Problems: No - Hypothyroidism Hx Hypertension: No Hx Pacemaker: No Hx Asthma: Yes Hx COPD: No Hx Diabetes: No Hx Cancer: No Hx Gastrointestinal Problems: Yes - IBS Hx Dialysis: No Hx Neurological Problems: No Hx Cerebrovascular Accident: No Hx Seizures: No Review of Systems All Other Systems: negative except mentioned in HPI Physical Exam Vital Signs Date Time Temp Pulse Resp B/P (MAP) Pulse Ox O2 Delivery O2 Flow Rate FiO2 01/07/19 18:07 98.8 100 19 126/80 (95) 98 Room Air Sp02 EP Interpretation: reviewed, normal General Appearance: no apparent distress, alert, non-toxic Head: normocephalic Eyes: bilateral eye normal inspection, bilateral eye PERRL, bilateral eye EOMI ENT: normal ENT inspection, hearing grossly normal, normal pharynx, no angioedema, normal voice, moist mucus membranes Neck: normal inspection, full range of motion, supple, supple/symm/no masses Respiratory: chest non-tender, lungs clear, normal breath sounds, chest symmetrical, palpation of chest normal Cardiovascular #1: normal peripheral pulses, regular rate, rhythm Cardiovascular #2: 2+ radial (R), 2+ radial (L) Gastrointestinal: normal inspection, non tender, soft, no mass, no guarding, no rebound Rectal: deferred Genitourinary: normal inspection, no CVA tenderness Musculoskeletal: back normal, gait/station normal, normal range of motion, non- tender, no calf tenderness Neurologic: alert, responsive, enforcement manager III-XII nml as tested, motor strength/tone normal, sensory intact, speech normal Psychiatric: judgement/insight normal, memory normal, mood/affect normal, anxious Skin: normal color, no rash, warm/dry, normal turgor Lymphatic: no adenopathy Medical Decision Making Diagnostic Impression: Primary Impression: Pain ER Course Patient with very benign exam of the right shoulder, no erythema, no warmth no axillary lymphadenopathy, no skin changes, full range of motion, no tenderness, no discharge with reassurance. Chest X-Ray Diagnostic Results Chest X-Ray Diagnostic Results : Chest X-Ray Ordered: Yes # of Views/Limited/Complete: 1 View Indication: Other - R upper chest/shoulder pain EP Interpretation: Yes Interpretation: no consolidation, no effusion, no pneumothorax, no acute cardiopulmonary disease Impression: No acute disease Electronically Signed by: Juhi Peck MD Other X-Ray Diagnostic Results Other X-Ray Diagnostic Results : X-Ray ordered: R shoulder # of Views/Limited Vs Complete: 1 View Indication: Pain EP Interpretation: Yes Interpretation: no dislocation, no soft tissue swelling, no fractures Impression: No acute disease Electronically Signed by: Juhi Peck Last Vital Signs Date Time Temp Pulse Resp B/P (MAP) Pulse Ox O2 Delivery O2 Flow Rate FiO2 01/07/19 18:07 98.8 100 19 126/80 (95) 98 Room Air Disposition: HOME, SELF-CARE Condition: Stable JUHI PECK M.D Jan 07, 2019 18:30
[2019-01-07] MEDS ORDERED: SYNTHROID100 MCG ORAL (19:03)
[2019-01-07] MEDS ORDERED: OMEPRAZOLE40 M1 ORAL (19:03)
[2019-01-07] MEDS ORDERED: CYCLOBENZAPRINE10 MG ORAL (19:03)
[2019-01-07 19:11] VITALS: BP 122/78
--- NOTE | 2019-01-08 17:47 | Diagnostic Imaging Report ---
Indication: Chest pain Technique: One view of the chest Comparison: 07/02/2018 Findings: Lungs and pleural spaces are clear. Heart size is normal. No significant interim change Impression: No acute process
--- NOTE | 2019-01-08 17:48 | Diagnostic Imaging Report ---
Indication: Right shoulder pain Technique: 3 views of the right shoulder Comparison: none Findings: No acute fractures. No dislocations. Joint spaces are preserved. The lungs demonstrate interstitial prominence. The bones are osteoporotic. Impression: No acute process
== END 2019-01-07 19:33 | disposition home or self-care (01) ==
LOC: EMR 19:30
DX: M25.511 Pain in right shoulder (principal); J45.909 Unspecified asthma, uncomplicated; E03.9 Hypothyroidism, unspecified; Z88.0 Allergy status to penicillin; Z88.8 Allergy status to other drugs, medicaments and biological substances
CPT/HCPCS: 71045; 96372; 99284

== ENCOUNTER 2019-01-21 18:36 | Emergency (ER) | payer MEDICAID ==
[~2019-01-21] VITALS: Ht 157.5 cm; Wt 38.1 kg
[2019-01-21 19:25] VITALS: BP 111/71
--- NOTE | 2019-01-21 19:30 | NUR ---
ED Nurse Note: Patient walked in to ER c/o right wrist pain 01/11. AAO x4, VSS at this time, skin is intact, warm to touch.
[2019-01-21] MEDS ORDERED: Ketorolac 30mg Inj IM ONE (20:00)
--- NOTE | 2019-01-21 20:33 | Emergency Room Report ---
History of Present Illness General Chief Complaint: Pain Source: Medical Record Present Illness HPI 58-year-old female presents to the emergency department complaining of 10 out of 10 severity pain is localized to the right wrist for almost 2 months. Patient reports previous fracture to the wrist and is concerned that it may not be healing correctly as she has intermittent exacerbations of pain and sometimes numbness and tingling she denies loss of gross motor movements or loss of gross sensations in the affected extremity. Patient states that she has not followed up with an family protection specialist and she also states that she has not been wearing her splint. pt. reports she did bring her splint along with her in her purse. Pt. is requesting pain medication and CT scan. Denies relieving factors, states movement of the right wrist and sometimes palpation exacerbates her pain. Allergies: Coded Allergies: PENICILLINS (Unverified Allergy, Unknown, 11/30/14) CIMETIDINE (Verified Adverse Reaction, Intermediate, 08/25/12) NOT ABLE TO DIGEST IT PER PT CIMETIDINE HCL (Verified Adverse Reaction, Intermediate, 08/25/12) NOT ABLE TO DIGEST IT PER PT Patient History Past Medical History: see triage record Past Surgical History: none Pertinent Family History: none Last Menstrual Period: menopause Now: No Reviewed Nursing Documentation: PMH: Agreed; PSxH: Agreed Nursing Documentation-PMH Hx Cardiac Problems: No - Hypothyroidism Hx Hypertension: No Hx Pacemaker: No Hx Asthma: Yes Hx COPD: No Hx Diabetes: No Hx Cancer: No Hx Gastrointestinal Problems: Yes - IBS Hx Dialysis: No Hx Neurological Problems: No Hx Cerebrovascular Accident: No Hx Seizures: No Review of Systems All Other Systems: negative except mentioned in HPI Physical Exam Vital Signs Date Time Temp Pulse Resp B/P (MAP) Pulse Ox O2 Delivery O2 Flow Rate FiO2 01/21/19 19:09 98.2 100 18 111/71 (84) 99 Room Air Sp02 EP Interpretation: reviewed, normal General Appearance: no apparent distress, alert, GCS 15, non-toxic Head: normocephalic, atraumatic Eyes: bilateral eye normal inspection, bilateral eye PERRL ENT: hearing grossly normal, normal voice Neck: full range of motion Respiratory: chest non-tender, lungs clear, normal breath sounds, speaking full sentences Cardiovascular #1: normal capillary refill Cardiovascular #2: 2+ radial (R), 2+ radial (L) Musculoskeletal: back normal, gait/station normal, normal range of motion, tender - right wrist medially, no swelling or bruising. Neurologic: alert, oriented x3, responsive, motor strength/tone normal, sensory intact, speech normal, other - motor movements are grossly intact, sensation is grossly intact in the affected extremity., grossly normal Psychiatric: judgement/insight normal, other - non-compliance with medical treatment regimines, overlyanxious regarding prognosis Skin: normal color, no rash, warm/dry, well hydrated Medical Decision Making PA Attestation Dr. Swanson is my supervising Physician whom patient management has been discussed with. Diagnostic Impression: Primary Impression: Wrist fracture, right Qualified Codes: S62.101G - Fracture of unspecified carpal bone, right wrist, subsequent encounter for fracture with delayed healing ER Course 58-year-old female presents to the emergency department complaining of 10 out of 10 severity pain is localized to the right wrist for almost 2 months. Patient reports previous fracture to the wrist and is concerned that it may not be healing correctly as she has intermittent exacerbations of pain and sometimes numbness and tingling she denies loss of gross motor movements or loss of gross sensations in the affected extremity. Patient states that she has not followed up with an family protection specialist and she also states that she has not been wearing her splint. pt. reports she did bring her splint along with her in her purse. Pt. is requesting pain medication and CT scan. Denies relieving factors, states movement of the right wrist and sometimes palpation exacerbates her pain. --This pt. highly non-compliant with follow up instructions, habitually presents to the ED for repeat x-rays and always requests CT scans. Ddx considered but are not limited to Fracture, dislocation, contusion, Sprain/ Strain/Spasm, non-compliance with medical treatment. Vital signs: are WNL, pt. is afebrile H&PE are most consistent with possible re-injury / malunion of previously diagnosed fracture. ORDERS: - X-ray right wrist 3 views - old distal radius and ulna fx's noted, negative for acute fx, Dislocation, or significant soft tissue injury, per preliminary read in ED, and signed by FER Fraga, my supervising physician has reviewed, and agrees with my interpretation. ED INTERVENTIONS: - RE-applied right wrist volar splint. The patient remained neurovascularly intact both before and after application of her right volar wrist splint by myself. ---D/w pt. concern regarding her non-compliance with orthopedic follow up and her self removal of her splint. encouraged pt. to leave splint on and to seek specialist evaluation. DISCHARGE: At this time pt. is stable for d/c to home. Will provide printed patient care instructions, and any necessary prescriptions. Care plan and follow up instructions have been discussed with the patient prior to discharge. Other X-Ray Diagnostic Results Other X-Ray Diagnostic Results : X-Ray ordered: Right Wrist # of Views/Limited Vs Complete: 3 View Indication: Pain EP Interpretation: Yes PA Xray: Interpretation reviewed, by supervising MD, and agrees with findings. Interpretation: no dislocation, no soft tissue swelling, no fractures Impression: No acute disease Electronically Signed by: Kylah Fraga PA-C Last Vital Signs Date Time Temp Pulse Resp B/P (MAP) Pulse Ox O2 Delivery O2 Flow Rate FiO2 01/21/19 19:09 98.2 100 18 111/71 (84) 99 Room Air Status: improved Disposition: HOME, SELF-CARE Condition: Stable Scripts Ibuprofen* (MOTRIN*) 600 Mg Tablet 600 MG ORAL Q6H PRN for For Pain, #20 TAB Prov: Kylah Fraga 01/21/19 Additional Instructions: Take medications as directed. Follow up with an THERMOPLASTIC TECHNICIAN in 3-5 days, even if your symptoms have resolved. --Please review list of primary care clinics, if you do not already have a primary care provider who can give you an Orthopedic Referral. Return sooner to ED if new symptoms occur, or current symptoms become worse. - Please note that this Emergency Department Report was dictated using [employer]ianaphotoeng[employer]ving helper technology software, occasionally this can lead to erroneous entry secondary to interpretation by the dictation equipment. Kylah Fraga Jan 21, 2019 20:33
[2019-01-21] MEDS ORDERED: IBUPROFEN600 MG ORAL (20:40)
[2019-01-21 20:50] VITALS: BP 111/71
--- NOTE | 2019-01-21 20:50 | NUR ---
ED Nurse Note: Pt cleared by health care Provider for discharge. DC instructions/prescription was given and explained to pt and verbalized understanding of teachings. All medical deviecs such as ID band removed. Pt is AAO x4, ambulatory and left with all personal belongings.
--- NOTE | 2019-01-22 10:45 | Diagnostic Imaging Report ---
Clinical Indication:Right wrist pain Technique: 3 views of the right wrist Comparison: 12/24/2017 Findings: Again demonstrated is a fracture deformity of the distal radius. Fracture line is less distinct. The base of the ulnar styloid is obscured, so status of that fracture is uncertain. No new fractures. No dislocations. No carpal fracture. Impression: Healing distal radial fracture, as described. Note status of previously demonstrated ulnar styloid fracture is less certain
== END 2019-01-21 20:50 | disposition home or self-care (01) ==
LOC: EMR 19:30
DX: S62.101G Fracture of unspecified carpal bone, right wrist, subsequent encounter for fracture with delayed healing (principal); X58.XXXA Exposure to other specified factors, initial encounter; Y92.9 Unspecified place or not applicable; E03.9 Hypothyroidism, unspecified; Z88.0 Allergy status to penicillin; Z88.8 Allergy status to other drugs, medicaments and biological substances; K58.9 Irritable bowel syndrome, unspecified
CPT/HCPCS: 29125; 73110; 96372; 99283; J1885

== ENCOUNTER 2019-04-01 17:47 | Emergency (ER) | payer MEDICAID ==
[~2019-04-01] VITALS: Ht 157.5 cm; Wt 38.6 kg
[2019-04-01 18:29] LABS: APPEARANCE,URINE CLEAR; BILIRUBIN, URINE NEGATIVE (NEGATIVE); COLOR,URINE PALE YELLOW; GLUCOSE, URINE (UA) NEGATIVE (NEGATIVE); KETONES,URINE NEGATIVE (NEGATIVE); LEUKOCYTE ESTERASE ,URINE NEGATIVE (NEGATIVE); NITRITE,URINE NEGATIVE (NEGATIVE); PH,URINE 8 (4.5-8.0); PROTEIN,URINE NEGATIVE (NEGATIVE); UROBILINOGEN,URINE NORMAL MG/DL (0.0-1.0)
[2019-04-01] MEDS ORDERED: Isovue-300 100ml vial INJ PRN (19:15)
--- NOTE | 2019-04-01 19:19 | NUR ---
ED Nurse Note: Patient presents with complaints of urinary frequency and flank pain, Urine has already been sent to lab, IV started and blood sents down at this time. Patient is waiting to be taken down for CT, consent for contrast has been signed.
[2019-04-01 19:20] VITALS: BP 127/54
[2019-04-01 19:33] LABS: BASOPHILS % (AUTO) 0.8 % (0.0-2.0); EOSINOPHILS % (AUTO) 0.6 % (0.0-3.0); HEMATOCRIT 40.3 % (37.0-47.0); HEMOGLOBIN 13.5 G/DL (12.0-16.0); LYMPHOCYTES % (AUTO) 29.8 % (20.0-45.0); MEAN CORPUSCULAR VOLUME 93 FL (80-99); MONOCYTES % (AUTO) 7.6 % (1.0-10.0); NEUTROPHILS % (AUTO) 61.2 % (45.0-75.0); PLATELET COUNT 252 K/UL (150-450); RED BLOOD COUNT 4.35 M/UL (4.20-5.40); RED CELL DISTRIBUTION WIDTH 10.8 % (11.6-14.8); WHITE BLOOD COUNT 4.9 K/UL (4.8-10.8)
[2019-04-01 19:44] LABS: ANION GAP 8 mmol/L (5-15); BLOOD UREA NITROGEN 14 mg/dL (7-18); CALCIUM 9.9 MG/DL (8.5-10.1); CARBON DIOXIDE 29 MMOL/L (21-32); CHLORIDE 103 MMOL/L (98-107); CREATININE 0.6 MG/DL (0.55-1.30); POTASSIUM 4.3 MMOL/L (3.5-5.1); SODIUM 140 MMOL/L (136-145)
[2019-04-01 19:57] LABS: ALANINE AMINOTRANSFERASE 15 U/L (12-78); ALBUMIN 4.2 G/DL (3.4-5.0); ALBUMIN/GLOBULIN RATIO 1.2 (1.0-2.7); ALKALINE PHOSPHATASE 77 U/L (46-116); ASPARTATE AMINO TRANSFERASE 18 U/L (15-37); BILIRUBIN,TOTAL 0.3 MG/DL (0.2-1.0)
--- NOTE | 2019-04-01 20:40 | Diagnostic Imaging Report ---
Indication: Chest and abdominal pain Technique: Continuous helical transaxial imaging of the chest, abdomen and pelvis was obtained from the lung bases to the pubic symphysis during intravenous contrast administration. Multiple phases of enhancement obtained. Coronal 2-D reformats were also obtained. Study obtained in a Siemens sensation [address] Automatic Exposure Control was utilized. Total Dose length Product (DLP): 660.[address] Dose Index Volume (CTDIvol): 7.4,7.81 mGy Comparison: None Findings: CT CHEST: There is mild pleural and parenchymal scarring at the apex of the lung. Lungs are essentially clear. No consolidation or significant interstitial disease identified. No pleural effusion identified. Mediastinum is unremarkable. The heart aorta appear unremarkable. There is no pneumothorax. CT abdomen pelvis: Solid organs appear unremarkable. Gallstones noted. No biliary ductal dilatation injury. There is no hydronephrosis. There is no free fluid. Bowel gas pattern appears nonobstructive. Urinary bladder is unremarkable. Uterus noted. Appendix is normal. IMPRESSION: No acute findings in the abdomen chest or pelvis. Cholelithiasis [facility] has communicated the preliminary results to the Emergency Department. Their findings are largely concordant with this report. The CT scanner at [facility] is accredited by the [employer] and the scans are performed using dose optimization techniques as appropriate to a performed exam including Automatic Exposure control.
--- NOTE | 2019-04-01 20:47 | Emergency Room Report ---
History of Present Illness General Chief Complaint: Pain Source: Patient, Medical Record Present Illness HPI 59-year-old female with history of hypothyroidism and GERD controlled with medication here complaining of 2 days of right flank pain and urinary frequency. Patient denies any fall or injury. Denies fever and chills, nausea vomiting. Rating the pain 7 out of 10 without radiation denies tingling numbness. Denies heavy lifting. Patient looks very thin however patient has previously been seen at the [facility] and always appears with very low body mass index. Patient has not seen a primary care provider for years. Continues to ask for refill on levothyroxine and omeprazole. Denies chest pain, shortness of breath, palpitation, headache, dizziness, and other associated symptoms. Has not taken medication for her pain. Patient no longer has her menses. Denies hematuria. Reports that the site pain started before the urinary frequency. She also complains of intermittent right lower quadrant pain without radiation. Stools, nausea and vomiting. Denies consuming greasy food. Allergies: Coded Allergies: PENICILLINS (Unverified Allergy, Unknown, 11/30/14) CIMETIDINE (Verified Adverse Reaction, Intermediate, 08/25/12) NOT ABLE TO DIGEST IT PER PT CIMETIDINE HCL (Verified Adverse Reaction, Intermediate, 08/25/12) NOT ABLE TO DIGEST IT PER PT Patient History Past Medical History: see triage record Past Surgical History: unable to obtain Pertinent Family History: none Now: No Immunizations: UTD Reviewed Nursing Documentation: PMH: Agreed; PSxH: Agreed Nursing Documentation-PMH Past Medical History: No History, Except For Hx Cardiac Problems: No - Hypothyroidism Hx Hypertension: No Hx Pacemaker: No Hx Asthma: Yes Hx COPD: No Hx Diabetes: No Hx Cancer: No Hx Gastrointestinal Problems: Yes - IBS Hx Dialysis: No Hx Neurological Problems: No Hx Cerebrovascular Accident: No Hx Seizures: No Review of Systems All Other Systems: negative except mentioned in HPI Physical Exam Vital Signs Date Time Temp Pulse Resp B/P (MAP) Pulse Ox O2 Delivery O2 Flow Rate FiO2 04/01/19 18:00 98.6 97 18 127/54 (78) 95 Room Air Sp02 EP Interpretation: reviewed, normal General Appearance: no apparent distress, alert, GCS 15, non-toxic Head: normocephalic, atraumatic Eyes: bilateral eye normal inspection, bilateral eye PERRL ENT: hearing grossly normal, normal pharynx, no angioedema, normal voice Neck: full range of motion, supple/symm/no masses Respiratory: chest non-tender, lungs clear, normal breath sounds, no rhonchi, speaking full sentences Cardiovascular #1: regular rate, rhythm, no edema, no murmur Gastrointestinal: normal inspection, normal bowel sounds, non tender, soft, no mass, no organomegaly, no peritonitis Genitourinary: no CVA tenderness Musculoskeletal: normal inspection, back normal, digits/nails normal, gait/ station normal, normal range of motion, non-tender, no calf tenderness Neurologic: alert, oriented x3, responsive, motor strength/tone normal, sensory intact, speech normal Psychiatric: judgement/insight normal, memory normal, mood/affect normal, no suicidal/homicidal ideation Skin: no rash Lymphatic: no adenopathy Medical Decision Making PA Attestation All my diagnosis and treatment plans were reviewed ad discussed with my supervising physician Dr. Gloria Diagnostic Impression: Primary Impression: Cholelithiases Additional Impressions: Muscle strain Medication refill Hypothyroidism GERD (gastroesophageal reflux disease) ER Course 59-year-old female with history of hypothyroidism and GERD controlled with medication here complaining of 2 days of right flank pain and urinary frequency. Patient denies any fall or injury. Denies fever and chills, nausea vomiting. Rating the pain 7 out of 10 without radiation denies tingling numbness. Denies heavy lifting. Patient looks very thin however patient has previously been seen at the [facility] and always appears with very low body mass index. Patient has not seen a primary care provider for years. Continues to ask for refill on levothyroxine and omeprazole. Denies chest pain, shortness of breath, palpitation, headache, dizziness, and other associated symptoms. Has not taken medication for her pain. Patient no longer has her menses. Denies hematuria. Reports that the site pain started before the urinary frequency. She also complains of intermittent right lower quadrant pain without radiation. Stools, nausea and vomiting. Denies consuming greasy food. Ddx considered but are not limited to: appendicitis, cholecystis, gastritis, UTI , pyelonephritis, SBO, diverticulitis, cholelithiasis, GERD, Vital signs: are WNL, pt. is afebrile H&PE are most consistent with: Cholelithiasis without cholecystitis, muscle strain, medication refill for hypothyroidism and GERD ORDERS: abdominal CT, CBC, CMP, UA, levothyroxine, omeprazole, lidocaine patch ED INTERVENTIONS: None required at this time. DISCHARGE: At this time pt. is stable for d/c to home. Will provide printed patient care instructions, and any necessary prescriptions. Care plan and follow up instructions have been discussed with the patient prior to discharge. I advised the patient to establish a primary care physician due to her cholelithiasis can turn into cholecystitis and patient needs referral to general surgeon. Patient also needs a primary care in order to do medication refill for her omeprazole and hypothyroidism as patient has pain coming to the emergency room for those refills for the past year. If worsening symptoms return to the emergency room. CT/MRI/US Diagnostic Results CT/MRI/US Diagnostic Results : Imaging Test Ordered: CT abdomen pelvis Impression Cholelithiasis without cholecystitis Last Vital Signs Date Time Temp Pulse Resp B/P (MAP) Pulse Ox O2 Delivery O2 Flow Rate FiO2 04/01/19 19:20 98.6 84 18 127/54 95 Room Air Disposition: HOME, SELF-CARE Condition: Stable Scripts Lidocaine Patch* (Lidoderm Patch*) 1 Each Adh..patch 1 PATCH TOPIC DAILY, #30 PATCH Patch(es) may remain in place for up to 12 hours in any 24-hour period. Prov: Maria Cuellar 04/01/19 Levothyroxine Sodium* (SYNTHROID*) 100 Mcg Tablet 100 MCG ORAL DAILY for 14 Days, #14 TAB Take in the morning on an empty stomach, at least 30 minutes before food. Prov: Maria Cuellar 04/01/19 Omeprazole (OMEPRAZOLE) 40 Mg Capsule. 40 MG ORAL DAILY, #30 CAP Prov: Maria Cuellar 04/01/19 Referrals: [facility]ERR[facility] (PCP) Patient Instructions: Cholelithiasis, [id number], Food Choices for Gastroesophageal Reflux Disease, Adult, Hypothyroidism, Muscle Strain Additional Instructions: Follow-up with your primary care provider regarding her gallstones as it may turn into infection and inflammation of your gallbladder you need to be referred possibly to general surgeon by your primary doctor. Take medication as directed you need further medication refill done by your primary care as you have not seen a primary care for over years. Maria Cuellar Apr 01, 2019 20:47
[2019-04-01] MEDS ORDERED: SYNTHROID100 MCG ORAL (20:49)
[2019-04-01] MEDS ORDERED: LIDODERM700 M1 TOPIC (20:49)
[2019-04-01] MEDS ORDERED: OMEPRAZOLE40 M1 ORAL (20:49)
--- NOTE | 2019-04-01 21:00 | NUR ---
ED Nurse Note: Patient cleared for discharge, verbalized understanding of discharge instructions. ID band removed patient departed with all belongings.
[2019-04-01 21:13] VITALS: BP 127/54
== END 2019-04-01 21:00 | disposition home or self-care (01) ==
LOC: EMR 19:02
DX: K80.20 Calculus of gallbladder without cholecystitis without obstruction (principal); S39.011A Strain of muscle, fascia and tendon of abdomen, initial encounter; X58.XXXA Exposure to other specified factors, initial encounter; Y92.9 Unspecified place or not applicable; E03.9 Hypothyroidism, unspecified; Z76.0 Encounter for issue of repeat prescription; K21.9 Gastro-esophageal reflux disease without esophagitis; J45.909 Unspecified asthma, uncomplicated; Z88.0 Allergy status to penicillin; Z88.8 Allergy status to other drugs, medicaments and biological substances
CPT/HCPCS: 36415; 71260; 74177; 80053; 81001; 84443; 85025; 99284; Q9967

== ENCOUNTER 2019-06-17 18:05 | Emergency (ER) | payer MEDICAID ==
[~2019-06-17] VITALS: Ht 157.5 cm; Wt 38.1 kg
[~2019-06-17 18:05] MED LIST changes: +LIDODERM700 M1 TOPIC
[2019-06-17 18:21] VITALS: BP 122/70
[2019-06-17 18:58] LABS: APPEARANCE,URINE CLEAR; BILIRUBIN, URINE NEGATIVE (NEGATIVE); COLOR,URINE PALE YELLOW; GLUCOSE, URINE (UA) NEGATIVE (NEGATIVE); KETONES,URINE NEGATIVE (NEGATIVE); LEUKOCYTE ESTERASE ,URINE NEGATIVE (NEGATIVE); NITRITE,URINE NEGATIVE (NEGATIVE); PH,URINE 8 (4.5-8.0); PROTEIN,URINE NEGATIVE (NEGATIVE); UROBILINOGEN,URINE NORMAL MG/DL (0.0-1.0)
[2019-06-17] MEDS ORDERED: Acetaminophen 500mg (ES) tab ORAL ONE (19:00)
--- NOTE | 2019-06-17 19:48 | Emergency Room Report ---
History of Present Illness General Chief Complaint: Lower Back Pain or Injury Source: Patient Present Illness HPI 59-year-old female presents to the emergency department complaining of progressive 8/10 in severity low back pain x3 days without radiation, in addition to urinary frequency and urgency x2 weeks. Patient denies fevers, chills, nausea, vomiting, abdominal pain, hematuria or dysuria. Patient denies trauma or fall. Denies numbness tingling or loss of sensation or gross motor movements of the extremities, incontinence of bowel or bladder. Denies CP, Palpitations, LOC, AMS, dizziness, Changes in Vision, weakness or a sudden severe headache. She denies recent spinal procedures or history of cancer. Patient also denies history of diabetes or symptoms of polydipsia. She denies any aggravating or relieving factors at this time she is requesting medication refill of her omeprazole and Synthroid. She states she has not taken any OTC medications. Allergies: Coded Allergies: PENICILLINS (Unverified Allergy, Unknown, 11/30/14) CIMETIDINE (Verified Adverse Reaction, Intermediate, 08/25/12) NOT ABLE TO DIGEST IT PER PT CIMETIDINE HCL (Verified Adverse Reaction, Intermediate, 08/25/12) NOT ABLE TO DIGEST IT PER PT Patient History Past Medical History: see triage record Past Surgical History: none Pertinent Family History: none Last Menstrual Period: no period Now: No Reviewed Nursing Documentation: PMH: Agreed; PSxH: Agreed Nursing Documentation-PMH Past Medical History: No History, Except For Hx Cardiac Problems: No - IBS Hx Hypertension: Yes Hx Pacemaker: No Hx Asthma: Yes Hx COPD: No Hx Diabetes: No Hx Cancer: No Hx Gastrointestinal Problems: Yes - IBS Hx Dialysis: No Hx Neurological Problems: No Hx Cerebrovascular Accident: No Hx Seizures: No Review of Systems All Other Systems: negative except mentioned in HPI Physical Exam Vital Signs Date Time Temp Pulse Resp B/P (MAP) Pulse Ox O2 Delivery O2 Flow Rate FiO2 06/17/19 18:13 98.4 87 17 122/70 (87) 100 Room Air Sp02 EP Interpretation: reviewed, normal General Appearance: no apparent distress, alert, GCS 15, non-toxic Head: normocephalic, atraumatic Eyes: bilateral eye normal inspection, bilateral eye PERRL ENT: hearing grossly normal, normal voice Neck: full range of motion Respiratory: lungs clear, normal breath sounds, speaking full sentences Cardiovascular #1: regular rate, rhythm Gastrointestinal: normal bowel sounds, non tender, soft, non-distended, no guarding Rectal: deferred Genitourinary: normal inspection, no CVA tenderness Musculoskeletal: gait/station normal, normal range of motion, other - FROM, tender - Tenderness to palpation to paraspinal muscles of the right lower back without midline spinous process tenderness or palpable step-off.. Neurologic: alert, oriented x3, responsive, motor strength/tone normal, sensory intact, normal gait, speech normal, grossly normal Psychiatric: judgement/insight normal Skin: no rash, normal color Lymphatic: no adenopathy Medical Decision Making PA Attestation Dr. Gloria is my supervising Physician whom patient management has been discussed with. Diagnostic Impression: Primary Impression: Low back pain Qualified Codes: M54.5 - Low back pain Additional Impressions: Urinary frequency Medication refill ER Course 59-year-old female presents to the emergency department complaining of progressive 8/10 in severity low back pain x3 days without radiation, in addition to urinary frequency and urgency x2 weeks. Patient denies fevers, chills, nausea, vomiting, abdominal pain, hematuria or dysuria. Patient denies trauma or fall. Denies numbness tingling or loss of sensation or gross motor movements of the extremities, incontinence of bowel or bladder. Denies CP, Palpitations, LOC, AMS, dizziness, Changes in Vision, weakness or a sudden severe headache. She denies recent spinal procedures or history of cancer. Patient also denies history of diabetes or symptoms of polydipsia. She denies any aggravating or relieving factors at this time she is requesting medication refill of her omeprazole and Synthroid. She states she has not taken any OTC medications. Ddx considered: epidural abscess, fracture, sprain/strain, meningitis, spinal chord injury, sciatica, cauda equina,UTI, Pyelonephritis, renal calculi just to name a few. Vital signs reviewed and are WNL during ED visit. Pt. is afebrile with no signs of infection No new symptoms, and denies recent trauma. No saddle anesthesia noted, Pt. denies incontinence Neurovascular is intact, FROM , ambulatory without assistance. Tenderness to palpation to paraspinal muscles of the right lower back without midline spinous process tenderness or palpable step-off.. History and physical exam do not exhibit evidence to suggest acute abdomen at this time or spinal cord impingement/pathology at this time. Patient is ambulatory without assistance she is nontoxic in appearance and does not appear to be in distress. ORDERS: -UA: WNL no signs of infection INTERVENTIONS: - Tramadol -Lidoderm -Tylenol Upon reassessment after interventions patient states that her pain has almost completely subsided but she still is having urgency. I discussed with this patient that there are many other causes for urgency and that she is encouraged to follow-up with a urologist for further evaluation/testing. D/W Pt. that for further pain management is it recommended to consult PCP or a Chronic Pain management doctor. A provider who can safely prescribe controlled substances with close follow up. DISCHARGE: At this time pt. is stable for d/c to home. Will provide printed patient care instructions, and any necessary prescriptions. Care plan and follow up instructions have been discussed with the patient prior to discharge. Labs Test 06/17/19 18:25 Urine Color Pale yellow Urine Appearance Clear Urine pH 8 (4.5-8.0) Urine Specific [place] 1.015 (1.005-1.035) Urine Protein Negative (NEGATIVE) Urine Glucose (UA) Negative (NEGATIVE) Urine Ketones Negative (NEGATIVE) Urine Blood Negative (NEGATIVE) Urine Nitrite Negative (NEGATIVE) Urine Bilirubin Negative (NEGATIVE) Urine Urobilinogen Normal MG/DL (0.0-1.0) Urine Leukocyte Esterase Negative (NEGATIVE) Last Vital Signs Date Time Temp Pulse Resp B/P (MAP) Pulse Ox O2 Delivery O2 Flow Rate FiO2 06/17/19 18:21 98.4 76 17 122/70 100 Room Air Disposition: HOME, SELF-CARE Condition: Stable Scripts Omeprazole (OMEPRAZOLE) 40 Mg Capsule. 40 MG ORAL DAILY, #30 CAP Prov: Kylah Fraga 06/17/19 Levothyroxine Sodium* (SYNTHROID*) 100 Mcg Tablet 100 MCG ORAL DAILY, #30 TAB Take in the morning on an empty stomach, at least 30 minutes before food. Prov: Kylah Fraga 06/17/19 Phenazopyridine Hcl* (PYRIDIUM*) 100 Mg Tablet 100 MG ORAL THREE TIMES A DAY for 3 Days, #9 TAB Prov: Kylah Fraga 06/17/19 Methocarbamol* (ROBAXIN-750*) 750 Mg Tablet 750 MG PO QID, #28 TAB 0 Refills Prov: Kylah Fraga 06/17/19 Patient Instructions: Back Pain, Adult, Urinary Frequency Additional Instructions: Take medications as directed. Follow up with a Primary Care Provider in 3-5 days, even if your symptoms have resolved. --Please review list of primary care clinics, if you do not already have a primary care provider Return sooner to ED if new symptoms occur, or current symptoms become worse. - Please note that this Emergency Department Report was dictated using [employer] cardiac rehab technology software, occasionally this can lead to erroneous entry secondary to interpretation by the dictation equipment. Kylah Fraga Jun 17, 2019 19:48
[2019-06-17] MEDS ORDERED: PHENAZOPYRIDIN100 MG ORAL (20:15)
[2019-06-17] MEDS ORDERED: SYNTHROID100 MCG ORAL (20:15)
[2019-06-17] MEDS ORDERED: ROBAXIN-750750 MG PO (20:15)
[2019-06-17] MEDS ORDERED: OMEPRAZOLE40 M1 ORAL (20:15)
[2019-06-17 20:30] VITALS: BP 130/72
[2019-06-17] MEDS ORDERED: traMADol 50mg tab ORAL ONE (20:30)
== END 2019-06-17 20:30 | disposition home or self-care (01) ==
LOC: EMR 19:00
DX: M54.5 Low back pain (principal); R35.0 Frequency of micturition; Z76.0 Encounter for issue of repeat prescription; I10 Essential (primary) hypertension; J45.909 Unspecified asthma, uncomplicated; K58.9 Irritable bowel syndrome, unspecified; Z88.0 Allergy status to penicillin; Z88.8 Allergy status to other drugs, medicaments and biological substances
CPT/HCPCS: 81003; Z7502; 99283

== ENCOUNTER 2019-09-30 17:51 | Emergency (ER) | payer MEDICAID ==
[~2019-09-30] VITALS: Ht 157.5 cm; Wt 39.0 kg
[~2019-09-30 17:51] MED LIST changes: +PHENAZOPYRIDIN100 MG ORAL; +ROBITUSSIN COU118 M1 PO; +VENTOLIN HFA18 GM INH; +ZITHROMAX250 MG ORAL
--- NOTE | 2019-09-30 18:02 | NUR ---
ED Nurse Note: PT AMBULATED TO ED C/O LOW BACK PAIN RADIATING TO BILATERAL LOWER LEGS. PT DENIES TRUAMA.
[2019-09-30 18:03] VITALS: BP 111/68
[2019-09-30] MEDS ORDERED: Ketorolac 30mg Inj IM ONE (19:00)
[2019-09-30] MEDS ORDERED: Methocarbamol 500mg tab ORAL ONE ×2 (19:00→19:08)
--- NOTE | 2019-09-30 19:00 | NUR ---
ED Nurse Note: RECEIVED PATIENT FROM [facility]. PATIENT RESTING IN BED WITH NO ACUTE DISTRESS. PATIENT MEDICATED AND AWARE OF PENDING DISCHARGE; WAITING FOR DC PAPERS.
[2019-09-30] MEDS ORDERED: Ketorolac 30mg Inj ONE (19:08)
[2019-09-30] MEDS ORDERED: TYLENOL EXTRA500 MG ORAL (19:13)
[2019-09-30] MEDS ORDERED: ROBAXIN-500MG ORAL (19:13)
[2019-09-30] MEDS ORDERED: LIDODERM700 M1 TOPIC (19:13)
--- NOTE | 2019-09-30 19:13 | Emergency Room Report ---
History of Present Illness General Chief Complaint: Lower Back Pain or Injury Source: Patient Present Illness HPI 59-year-old female with history of hypothyroidism and gastritis here complaining of low back pain radiating to right leg x3 days without any fall or injury. Denies any tingling numbness 10. Has not taken medication for symptom relief. Denies all other injuries. Denies urinary and bowel incontinence. Denies saddle paresthesia. Patient has a very low BMI and has a history of taking levothyroxine with unknown diagnosis of hypothyroidism Allergies: Coded Allergies: PENICILLINS (Unverified Allergy, Unknown, 11/30/14) CIMETIDINE (Verified Adverse Reaction, Intermediate, 08/25/12) NOT ABLE TO DIGEST IT PER PT CIMETIDINE HCL (Verified Adverse Reaction, Intermediate, 08/25/12) NOT ABLE TO DIGEST IT PER PT Patient History Past Medical History: see triage record Past Surgical History: none Pertinent Family History: none Now: No Immunizations: UTD Reviewed Nursing Documentation: PMH: Agreed; PSxH: Agreed Nursing Documentation-PMH Past Medical History: No Stated History Hx Hypertension: Yes Hx Pacemaker: No Hx Asthma: Yes Hx COPD: No Hx Diabetes: No Hx Cancer: No Hx Gastrointestinal Problems: Yes - IBS Hx Dialysis: No Hx Neurological Problems: No Hx Cerebrovascular Accident: No Hx Seizures: No Review of Systems All Other Systems: negative except mentioned in HPI Physical Exam Vital Signs Date Time Temp Pulse Resp B/P (MAP) Pulse Ox O2 Delivery O2 Flow Rate FiO2 09/30/19 17:57 98.4 100 18 111/68 (82) 96 Room Air Sp02 EP Interpretation: reviewed, normal General Appearance: no apparent distress, alert, GCS 15, non-toxic Head: normocephalic, atraumatic Eyes: bilateral eye normal inspection, bilateral eye PERRL ENT: hearing grossly normal, normal pharynx, no angioedema, normal voice Neck: full range of motion, supple/symm/no masses Respiratory: chest non-tender, lungs clear, normal breath sounds, speaking full sentences Cardiovascular #1: regular rate, rhythm, no edema, no murmur Cardiovascular #2: 2+ dorsalis pedis (R), 2+ dorsalis pedis (L) Gastrointestinal: normal bowel sounds, non tender, soft, non-distended, no guarding, no rebound Rectal: deferred Musculoskeletal: back normal, digits/nails normal, no calf tenderness, pelvis stable, non-tender Neurologic: alert, motor strength/tone normal, oriented x3, sensory intact, responsive, speech normal Psychiatric: judgement/insight normal, memory normal, mood/affect normal, no suicidal/homicidal ideation Skin: no rash Lymphatic: no adenopathy Medical Decision Making PA Attestation All my diagnosis and treatment plans were reviewed ad discussed with my supervising physician Dr. Hoffman Diagnostic Impression: Primary Impression: Sciatic leg pain ER Course 59-year-old female with history of hypothyroidism and gastritis here complaining of low back pain radiating to right leg x3 days without any fall or injury. Denies any tingling numbness 10. Has not taken medication for symptom relief. Denies all other injuries. Denies urinary and bowel incontinence. Denies saddle paresthesia. Patient has a very low BMI and has a history of taking levothyroxine with unknown diagnosis of hypothyroidism Ddx considered but are not limited to: Lumbar spine sprain, strain, fracture, contusion, neuropathy, sciatica Vital signs: are WNL, pt. is afebrile H&PE are most consistent with: Sciatica ORDERS: Lumbar spine x-ray, Tylenol, Robaxin, lidocaine patch ER intervention: Toradol, Robaxin DISCHARGE: At this time pt. is stable for d/c to home. Will provide printed patient care instructions, and any necessary prescriptions. Care plan and follow up instructions have been discussed with the patient prior to discharge. Take medication as directed, follow with primary care provider, if worsening symptoms return to the emergency room Other X-Ray Diagnostic Results Other X-Ray Diagnostic Results : X-Ray ordered: Lumbar spine x-ray # of Views/Limited Vs Complete: 3 View Indication: Pain EP Interpretation: Yes FER Xray: Interpretation reviewed, by supervising MD, and agrees with findings. Interpretation: no dislocation, no soft tissue swelling, no fractures Impression: No acute disease Electronically Signed by: Maria Suazo PA-C Last Vital Signs Date Time Temp Pulse Resp B/P (MAP) Pulse Ox O2 Delivery O2 Flow Rate FiO2 09/30/19 18:03 98.4 78 18 111/68 96 Room Air Disposition: HOME, SELF-CARE Condition: Stable Scripts Lidocaine Patch* (Lidoderm Patch*) 1 Each Adh..patch 1 PATCH TOPIC DAILY, #7 PATCH 0 Refills Patch(es) may remain in place for up to 12 hours in any 24-hour period. Prov: Maria Cuellar 09/30/19 Acetaminophen* (TYLENOL EXTRA STRENGTH*) 500 Mg Tablet 500 MG ORAL Q8H PRN for Prn Headache/Temp > 101, #30 TAB 0 Refills Prov: Maria Cuellar 09/30/19 Methocarbamol* (ROBAXIN-500*) 500 Mg Tablet 500 MG ORAL TID PRN for For Pain, #15 TAB 0 Refills Prov: Maria Cuellar 09/30/19 Referrals: NON PHYSICIAN (PCP) Patient Instructions: Low Back Sprain With Rehab[facility], Sciatica, Easy-to- Read Maria Cuellar Sep 30, 2019 19:13
[2019-09-30 19:15] VITALS: BP 115/71
--- NOTE | 2019-09-30 19:15 | NUR ---
ER DISCHARGE NOTE: Patient is cleared to be discharged per ERMD, pt is aox4, on room air, with stable vital signs. pt was given dc and prescription instructions, pt was able to verbalize understanding, pt id band removed. pt is able to ambulate with steady gait. pt took all belongings.
--- NOTE | 2019-10-07 11:25 | Diagnostic Imaging Report ---
Indication: Low back pain Technique: 3 views of the lumbar spine Comparison: 09/29/2015 Findings: Bony alignment is normal. Vertebral body heights are preserved. Bones are osteoporotic. Disc spaces are preserved. The pedicles are intact. Sacral arches are preserved. Sacroiliac joint spaces are preserved Impression:. No acute bony trauma. Findings as noted
== END 2019-09-30 19:15 | disposition home or self-care (01) ==
LOC: EMR 18:40
DX: M54.31 Sciatica, right side (principal); I10 Essential (primary) hypertension; E03.9 Hypothyroidism, unspecified; K58.9 Irritable bowel syndrome, unspecified; Z88.0 Allergy status to penicillin; Z88.8 Allergy status to other drugs, medicaments and biological substances; Z79.899 Other long term (current) drug therapy
CPT/HCPCS: 72020; 96372; J1885; Z7502; 99283

== ENCOUNTER 2019-10-12 12:28 | Emergency (ER) | payer MEDICAID ==
[~2019-10-12] VITALS: Ht 157.5 cm; Wt 39.0 kg
[~2019-10-12 12:28] MED LIST changes: +ROBAXIN-500MG ORAL
[2019-10-12 12:45] VITALS: BP 122/67
--- NOTE | 2019-10-12 13:00 | NUR ---
ED Nurse Note: Obtained urine specimen; sent to labs.
--- NOTE | 2019-10-12 13:02 | NUR ---
ED Nurse Note: Dr. Clark at bedside.
[2019-10-12] MEDS ORDERED: Methocarbamol 750mg tab ORAL ONE (13:15)
[2019-10-12] MEDS ORDERED: Acetaminophen 500mg (ES) tab ORAL ONE (13:15)
--- NOTE | 2019-10-12 13:21 | Emergency Room Report ---
History of Present Illness General Chief Complaint: Lower Back Pain or Injury Source: Patient Present Illness HPI 59-year-old female history of hypothyroidism presents to the ED with low back pain and is 2 to 3 weeks patient reports that she has been carrying heavy things , she endorses pain no bowel bladder retention/incontinence, no perineal numbness she endorses an achy lower back pain aggravated with movement alleviated throughout severity is moderate, intermittent patient presents for evaluation no fever no chills no history of IV drug use Allergies: Coded Allergies: PENICILLINS (Unverified Allergy, Unknown, 11/30/14) CIMETIDINE (Verified Adverse Reaction, Intermediate, 08/25/12) NOT ABLE TO DIGEST IT PER PT CIMETIDINE HCL (Verified Adverse Reaction, Intermediate, 08/25/12) NOT ABLE TO DIGEST IT PER PT Patient History Past Medical History: see triage record Now: No Reviewed Nursing Documentation: PMH: Agreed; PSxH: Agreed Nursing Documentation-PMH Hx Hypertension: Yes Hx Pacemaker: No Hx Asthma: Yes Hx COPD: No Hx Diabetes: No Hx Cancer: No Hx Gastrointestinal Problems: Yes - IBS Hx Dialysis: No Hx Neurological Problems: No Hx Cerebrovascular Accident: No Hx Seizures: No Review of Systems All Other Systems: negative except mentioned in HPI Physical Exam Vital Signs Date Time Temp Pulse Resp B/P (MAP) Pulse Ox O2 Delivery O2 Flow Rate FiO2 10/12/19 12:38 98.2 102 18 122/67 (85) 98 Room Air General Appearance: well appearing, no apparent distress Head: normocephalic, atraumatic Eyes: bilateral eye PERRL, bilateral eye EOMI ENT: hearing grossly normal, normal voice Neck: full range of motion, supple Respiratory: no respiratory distress, speaking full sentences Musculoskeletal: other - Back: No midline tenderness no step-offs, left lateral right lateral lower filter tank tender helper to palpation along the muscle Neurologic: alert, normal gait Psychiatric: mood/affect normal Skin: no rash Medical Decision Making Diagnostic Impression: Primary Impression: Low back pain Qualified Codes: M54.5 - Low back pain ER Course The patient presents with acute onset of back pain. Clinically this patient can be ruled out for serious pathology given there is a completely normal neurological exam, no history of IV drug use, and no history of bowel or bladder incontinence, no perianal numbness/tingling, no constipation or urinary retention. Once the patient's pain was adequately controlled, the patient was able to ambulate and be discharged in stable condition with anticipatory guidance provided. Patient is also requesting a refill of her hypothyroid medication and omeprazole. Will refill meds and DC Last Vital Signs Date Time Temp Pulse Resp B/P (MAP) Pulse Ox O2 Delivery O2 Flow Rate FiO2 10/12/19 12:38 98.2 102 18 122/67 (85) 98 Room Air Disposition: HOME, SELF-CARE Condition: Stable Scripts Ibuprofen* (MOTRIN*) 600 Mg Tablet 600 MG ORAL Q8H PRN for For Pain, #30 TAB 0 Refills Prov: Naveed Clark MD 10/12/19 Omeprazole (OMEPRAZOLE) 40 Mg Capsule.dr 40 MG ORAL DAILY, #30 CAP Prov: Naveed Clark MD 10/12/19 Levothyroxine Sodium* (SYNTHROID*) 100 Mcg Tablet 100 MCG ORAL DAILY, #30 TAB Take in the morning on an empty stomach, at least 30 minutes before food. Prov: Naveed Clark MD 10/12/19 Lidocaine Patch* (Lidoderm Patch*) 1 Each Adh..patch 1 PATCH TOPIC DAILY, #7 PATCH 0 Refills Patch(es) may remain in place for up to 12 hours in any 24-hour period. Prov: Naveed Clark MD 10/12/19 Referrals: [facility] Patient Instructions: Lumbosacral Strain Additional Instructions: The patient was provided with discharge instructions, notified to follow-up with a primary care doctor and or specialist in the next 24-48 hours, and to return to the ED if they have worsening of their symptoms. Please note that this report is being documented using [employer] technology. This can lead to erroneous entry secondary to incorrect interpretation by the dictating instrument. Naveed Clark MD Oct 12, 2019 13:21
[2019-10-12] MEDS ORDERED: LIDODERM700 M1 TOPIC (13:25)
[2019-10-12] MEDS ORDERED: SYNTHROID100 MCG ORAL (13:25)
[2019-10-12] MEDS ORDERED: OMEPRAZOLE40 M1 ORAL (13:25)
[2019-10-12] MEDS ORDERED: IBUPROFEN600 MG ORAL (13:25)
[2019-10-12 13:35] VITALS: BP 122/67
[2019-10-12] MEDS ORDERED: NITROFURANTOIN100 M2 ORAL (13:39)
[2019-10-12 14:51] LABS: APPEARANCE,URINE CLEAR; BILIRUBIN, URINE NEGATIVE (NEGATIVE); COLOR,URINE PALE YELLOW; GLUCOSE, URINE (UA) NEGATIVE (NEGATIVE); KETONES,URINE NEGATIVE (NEGATIVE); LEUKOCYTE ESTERASE ,URINE NEGATIVE (NEGATIVE); NITRITE,URINE NEGATIVE (NEGATIVE); PH,URINE 6 (4.5-8.0); PROTEIN,URINE NEGATIVE (NEGATIVE); UROBILINOGEN,URINE NORMAL MG/DL (0.0-1.0)
== END 2019-10-12 13:35 | disposition home or self-care (01) ==
LOC: EMR 13:23
DX: M54.5 Low back pain (principal); Z88.0 Allergy status to penicillin; I10 Essential (primary) hypertension
CPT/HCPCS: 81003; Z7502; 99283

== ENCOUNTER 2019-10-28 14:43 | Emergency (ER) | payer MEDICAID ==
[~2019-10-28] VITALS: Ht 157.5 cm; Wt 40.4 kg
[~2019-10-28 14:43] MED LIST changes: +NITROFURANTOIN100 M2 ORAL
--- NOTE | 2019-10-28 15:13 | NUR ---
ED Nurse Note:pt. came from home with c/o mechanical fall this morning and pain in left ribs cage, skin is intact no bruising according to pt. she is ambulatory with steady gait
--- NOTE | 2019-10-28 16:08 | Emergency Room Report ---
History of Present Illness General Chief Complaint: Pain Source: Patient Present Illness HPI 59-year-old female with history of gastritis and hypothyroidism here complaining of left-sided rib pain after fall earlier today. Denies head injury loss of consciousness. Has not taken medication for symptom relief. In no apparent distress. Vital signs are within normal limits. Is afebrile, denies URI symptoms. Sitting comfortably with stable vital signs. Denies tingling or numbness. Allergies: Coded Allergies: PENICILLINS (Unverified Allergy, Unknown, 11/30/14) CIMETIDINE (Verified Adverse Reaction, Intermediate, 08/25/12) NOT ABLE TO DIGEST IT PER PT CIMETIDINE HCL (Verified Adverse Reaction, Intermediate, 08/25/12) NOT ABLE TO DIGEST IT PER PT COVID-19 Screening Contact w/high risk pt: No Recent Travel to affected area: No Experienced COVID-19 symptoms?: No Patient History Past Medical History: see triage record Past Surgical History: none Pertinent Family History: none Now: No Immunizations: UTD Reviewed Nursing Documentation: PMH: Agreed; PSxH: Agreed Nursing Documentation-PMH Past Medical History: No History, Except For Hx Hypertension: Yes Hx Pacemaker: No Hx Asthma: Yes Hx COPD: No Hx Diabetes: No Hx Cancer: No Hx Gastrointestinal Problems: Yes - IBS Hx Dialysis: No Hx Neurological Problems: No Hx Cerebrovascular Accident: No Hx Seizures: No Review of Systems All Other Systems: negative except mentioned in HPI Physical Exam Vital Signs Date Time Temp Pulse Resp B/P (MAP) Pulse Ox O2 Delivery O2 Flow Rate FiO2 10/28/19 14:51 98.4 87 17 98 Room Air Sp02 EP Interpretation: reviewed, normal General Appearance: no apparent distress, alert, GCS 15, non-toxic Head: normocephalic, atraumatic Eyes: bilateral eye normal inspection, bilateral eye PERRL ENT: hearing grossly normal, normal pharynx, no angioedema, normal voice Neck: full range of motion, supple/symm/no masses Respiratory: chest non-tender, lungs clear, normal breath sounds, no rhonchi, no respiratory distress, no retraction, no wheezing, speaking full sentences Cardiovascular #1: regular rate, rhythm, no edema, no murmur Gastrointestinal: non tender, soft Musculoskeletal: back normal, normal range of motion, no calf tenderness, non- tender Neurologic: alert, motor strength/tone normal, oriented x3, sensory intact, responsive, speech normal Psychiatric: judgement/insight normal, memory normal, mood/affect normal, no suicidal/homicidal ideation Skin: no rash Lymphatic: no adenopathy Medical Decision Making PA Attestation Diagnosis and treatment plans were reviewed and discussed with my supervising physician Dr. Clark Diagnostic Impression: Primary Impression: Rib contusion ER Course 59-year-old female with history of gastritis and hypothyroidism here complaining of left-sided rib pain after fall earlier today. Denies head injury loss of consciousness. Has not taken medication for symptom relief. In no apparent distress. Vital signs are within normal limits. Is afebrile, denies URI symptoms. Sitting comfortably with stable vital signs. Denies tingling or numbness. Ddx considered but are not limited to: Pneumothorax, rib fracture, rib contusion , chest contusion Vital signs: are WNL, pt. is afebrile H&PE are most consistent with rib contusion ORDERS: Left-sided rib series, Tylenol, lidocaine patch, Robaxin ED INTERVENTIONS: None required at this time. DISCHARGE: At this time pt. is stable for d/c to home. Will provide printed patient care instructions, and any necessary prescriptions. Care plan and follow up instructions have been discussed with the patient prior to discharge. Patient to follow primary care provider, take medication as directed, worsening symptoms return to emergency room Chest X-Ray Diagnostic Results Chest X-Ray Diagnostic Results : Chest X-Ray Ordered: Yes # of Views/Limited/Complete: 1 View Indication: Other EP Interpretation: Yes PA Xray: Interpretation reviewed, by supervising MD, and agrees with findings. Interpretation: no consolidation, no effusion, no pneumothorax Impression: No acute disease Electronically Signed by: Maria Suazo PA-C Other X-Ray Diagnostic Results Other X-Ray Diagnostic Results : X-Ray ordered: Left-sided ribs # of Views/Limited Vs Complete: 3 View Indication: Pain EP Interpretation: Yes PA Xray: Interpretation reviewed, by supervising MD, and agrees with findings. Interpretation: no dislocation, no soft tissue swelling, no fractures Impression: No acute disease Electronically Signed by: Maria Suazo PA-C Last Vital Signs Date Time Temp Pulse Resp B/P (MAP) Pulse Ox O2 Delivery O2 Flow Rate FiO2 10/28/19 15:11 98.4 17 98 Room Air 10/28/19 14:51 87 Disposition: HOME, SELF-CARE Condition: Stable Scripts Lidocaine Patch* (Lidoderm Patch*) 1 Each Adh..patch 1 PATCH TOPIC DAILY, #30 PATCH Patch(es) may remain in place for up to 12 hours in any 24-hour period. Prov: Maria Cuellar 10/28/19 Acetaminophen* (TYLENOL EXTRA STRENGTH*) 500 Mg Tablet 500 MG ORAL Q8H PRN for Prn Headache/Temp > 101, #30 TAB 0 Refills Prov: Maria Cuellar 10/28/19 Methocarbamol* (ROBAXIN-500*) 500 Mg Tablet 500 MG ORAL TID PRN for For Pain, #15 TAB 0 Refills Prov: Maria Cuellar 10/28/19 Referrals: NON PHYSICIAN (PCP) Patient Instructions: Rib Contusion Additional Instructions: Take medication as directed, follow-up with primary care provider, if worsening symptoms return to the emergency room Maria Cuellar Oct 28, 2019 16:08
--- NOTE | 2019-10-28 16:36 | Diagnostic Imaging Report ---
Indication: Left sided rib pain. Trauma. Findings: 4 views of the right chest wall was obtained for evaluation of the ribs. There is no acute fracture identified. Bones are osteopenic. There is no soft tissue swelling demonstrated. The lung is essentially clear. There is no pneumothorax. The costophrenic angle is sharp. Other osseous structures visualized are unremarkable. Impression: Negative right unilateral rib series
[2019-10-28] MEDS ORDERED: TYLENOL EXTRA500 MG ORAL (16:57)
[2019-10-28] MEDS ORDERED: LIDODERM700 M1 TOPIC (16:57)
[2019-10-28] MEDS ORDERED: ROBAXIN-500MG ORAL (16:57)
[2019-10-28 17:00] VITALS: BP 120/60
--- NOTE | 2019-10-28 17:00 | NUR ---
ER DISCHARGE NOTE: Patient is cleared to be discharged per ERMD, pt is aox4, on room air, with stable vital signs. pt was given dc and prescription instructions, pt was able to verbalize understanding, pt is able to ambulate with steady gait. pt took all belongings.
== END 2019-10-28 16:45 | disposition home or self-care (01) ==
LOC: EMR 15:00
DX: S20.212A Contusion of left front wall of thorax, initial encounter (principal); W19.XXXA Unspecified fall, initial encounter; Y92.9 Unspecified place or not applicable; I10 Essential (primary) hypertension; J45.909 Unspecified asthma, uncomplicated; Z88.0 Allergy status to penicillin; Z88.8 Allergy status to other drugs, medicaments and biological substances; Z87.19 Personal history of other diseases of the digestive system
CPT/HCPCS: 71101; Z7502; 99283

== ENCOUNTER 2019-12-16 17:06 | Emergency (ER) | payer MEDICAID ==
[~2019-12-16] VITALS: Ht 157.5 cm; Wt 40.4 kg
[2019-12-16 17:26] VITALS: BP 121/67
--- NOTE | 2019-12-16 18:03 | Emergency Room Report ---
History of Present Illness General Chief Complaint: General Complaint Present Illness HPI 59 YO Female presents to the ED c/o 03/13 in severity bilateral LE pain and tenderness in the knees and thighs s/p mechanical trip and fall. Pt. denies hitting her head or LOC. She denies midline neck or back pain. She reports she was able to ambulate with pain afterward. Pt. denies open wounds or bleeding. Pain is exacerbated with movement and palpation. Pt. also requesting refill of her Synthroid and omeprazole. Denies numbness tingling or loss of sensation or gross motor movements of the extremities, incontinence of bowel or bladder. Denies CP, Palpitations, LOC, AMS, dizziness, Changes in Vision, weakness or a sudden severe headache. 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 Patient History Past Medical History: see triage record Past Surgical History: none Pertinent Family History: none Nursing Documentation-PMH Hx Hypertension: Yes Hx Pacemaker: No Hx Asthma: Yes Hx COPD: No Hx Diabetes: No Hx Cancer: No Hx Gastrointestinal Problems: Yes - IBS Hx Dialysis: No Hx Neurological Problems: No Hx Cerebrovascular Accident: No Hx Seizures: No Review of Systems All Other Systems: negative except mentioned in HPI Physical Exam Vital Signs Date Time Temp Pulse Resp B/P (MAP) Pulse Ox O2 Delivery O2 Flow Rate FiO2 12/16/19 17:17 97.9 94 18 117/60 (79) 96 Room Air Sp02 EP Interpretation: reviewed, normal General Appearance: no apparent distress, alert, GCS 15, non-toxic Head: normocephalic, atraumatic Eyes: bilateral eye normal inspection, bilateral eye PERRL ENT: hearing grossly normal, normal voice Neck: full range of motion, no bony tend Respiratory: chest non-tender, lungs clear, normal breath sounds, speaking full sentences Cardiovascular #1: regular rate, rhythm, normal capillary refill Musculoskeletal: back normal, normal range of motion, gait/station normal, tender - TTp to anterior Knees and femur/thighs bilaterally. No obvious Deformities, no bruises Neurologic: alert, motor strength/tone normal, oriented x3, sensory intact, responsive, speech normal Psychiatric: judgement/insight normal Skin: normal color, other - NO abrasions, bruises or swelling noted. Medical Decision Making FER Meeks Is my supervising Physician whom patient management has been discussed with. Diagnostic Impression: Primary Impression: Knee contusion Qualified Codes: S80.00XA - Contusion of unspecified knee, initial encounter Additional Impressions: Leg pain, bilateral Medication refill ER Course 59 YO Female presents to the ED c/o 03/13 in severity bilateral LE pain and tenderness in the knees and thighs s/p mechanical trip and fall. Pt. denies hitting her head or LOC. She denies midline neck or back pain. She reports she was able to ambulate with pain afterward. Pt. denies open wounds or bleeding. Pain is exacerbated with movement and palpation. Pt. also requesting refill of her Synthroid and omeprazole. Denies numbness tingling or loss of sensation or gross motor movements of the extremities, incontinence of bowel or bladder. Denies CP, Palpitations, LOC, AMS, dizziness, Changes in Vision, weakness or a sudden severe headache. Ddx considered but are not limited to Fracture, dislocation, contusion, Sprain/ Strain/Spasm, Acute head injury, ligamental or meniscal injury, abrasions, lacerations just to name a few. Vital signs: are WNL, pt. is afebrile H&PE are most consistent with musculoskeletal injury will perform imaging to r/ o fractures/dislocations. ORDERS: - X-ray Bilateral knee and femur - negative for fx, Dislocation, or significant soft tissue injury, per preliminary read in ED, and signed by FER Fraga, my supervising physician has reviewed, and agrees with my interpretation. ED INTERVENTIONS: - Tylenol PO -Ruperto wrap applied by ict support technicians to the right knee. Pt. remains neurovascularly intact. -Ruperto wrap applied by ict support technicians to the left knee. Pt. remains neurovascularly intact. -I do not identify an emergent condition at this time. With current presentation , pt. is stable for close outpatient follow up and conservative treatment. D/ w pt. to return promptly to ED with worsening or new symptoms.- Pt. verbalizes' understanding and agreement with proposed treatment plan. DISCHARGE: At this time pt. is stable for d/c to home. Will provide printed patient care instructions, and any necessary prescriptions. Care plan and follow up instructions have been discussed with the patient prior to discharge. Other X-Ray Diagnostic Results Other X-Ray Diagnostic Results #1: X-Ray ordered: Right Knee # of Views/Limited Vs Complete: 3 View Indication: Pain EP Interpretation: Yes PA Xray: Interpretation reviewed, by supervising MD, and agrees with findings. Interpretation: no dislocation, no soft tissue swelling, no fractures Impression: No acute disease Electronically Signed by: Kylah Fraga PA-C Other X-Ray Diagnostic Results #2: X-Ray ordered: Left Knee # of Views/Limited Vs Complete: 3 View Indication: Pain EP Interpretation: Yes PA Xray: Interpretation reviewed, by supervising MD, and agrees with findings. Interpretation: no dislocation, no soft tissue swelling, no fractures Impression: No acute disease Electronically Signed by: Kylah Fraga PA-C Other X-Ray Diagnostic Results #3: X-Ray ordered: Right Femur # of Views/Limited Vs Complete: 2 View Indication: Pain EP Interpretation: Yes PA Xray: Interpretation reviewed, by supervising MD, and agrees with findings. Interpretation: no dislocation, no soft tissue swelling, no fractures Impression: No acute disease Electronically Signed by: Kylah Fraga PA-C Other X-Ray Diagnostic Results #4: X-Ray ordered: Left Femur # of Views/Limited Vs Complete: 2 View Indication: Pain EP Interpretation: Yes PA Xray: Interpretation reviewed, by supervising MD, and agrees with findings. Interpretation: no dislocation, no soft tissue swelling, no fractures Impression: No acute disease Electronically Signed by: Kylah Fraga PA-C Last Vital Signs Date Time Temp Pulse Resp B/P (MAP) Pulse Ox O2 Delivery O2 Flow Rate FiO2 12/16/19 17:26 97.9 92 18 121/67 96 Room Air Disposition: HOME, SELF-CARE Condition: Stable Scripts Levothyroxine Sodium* (SYNTHROID*) 100 Mcg Tablet 100 MCG ORAL DAILY, #30 TAB Take in the morning on an empty stomach, at least 30 minutes before food. Prov: Kylah Fraga 12/16/19 Acetaminophen* (TYLENOL EXTRA STRENGTH*) 500 Mg Tablet 500 MG ORAL Q6H, #20 TAB 0 Refills Prov: Kylah Fraga 12/16/19 Omeprazole (OMEPRAZOLE) 20 Mg Capsule. 20 MG ORAL BID, #60 CAP Prov: Kylah Fraga 12/16/19 Referrals: Mateo Gregory [facility] Patient Instructions: Contusion, [id number] Additional Instructions: Take medications as directed. Follow up with a Primary Care Provider in 3-5 days, even if your symptoms have resolved. --Please review list of primary care clinics, if you do not already have a primary care provider Return sooner to ED if new symptoms occur, or current symptoms become worse. - Please note that this Emergency Department Report was dictated using [employer] biostatistics director technology software, occasionally this can lead to erroneous entry secondary to interpretation by the dictation equipment. Kylah Fraga December 16, 2019 18:03
[2019-12-16] MEDS ORDERED: TYLENOL EXTRA500 MG ORAL (18:32)
[2019-12-16] MEDS ORDERED: SYNTHROID100 MCG ORAL (18:32)
[2019-12-16] MEDS ORDERED: OMEPRAZOLE20 M2 ORAL (18:32)
[2019-12-16 18:50] VITALS: BP 127/73
--- NOTE | 2019-12-17 16:30 | Diagnostic Imaging Report ---
EXAM: X-RAY XRAY Femur 2v R CLINICAL HISTORY: Leg pain. COMPARISON: None FINDINGS: Total of 2 views of the right proximal femur were obtained. 2 views of the right femur includes the right hip down to the mid shaft. Distal femur is not included. There is no fracture, bony lesion or erosion noted in the presented radiographs. Joint spaces are unremarkable. Surrounding soft tissue is normal. IMPRESSION: NO ACUTE BONY ABNORMALITY NOTED IN THE PROXIMAL TO MID RIGHT FEMUR.
--- NOTE | 2019-12-17 16:30 | Diagnostic Imaging Report ---
EXAM: X-RAY XRAY Femur 2v L CLINICAL HISTORY: Leg pain. COMPARISON: None FINDINGS: Total of 2 views of the left femur were obtained. 2 radiographs of the left femur covering the left hip down to the mid femoral shaft presented. There is no fracture, bony lesions or erosions. Joint spaces are unremarkable. Surrounding soft tissue is normal. IMPRESSION: NO ACUTE BONY ABNORMALITY OF THE LEFT PROXIMAL TO MID FEMUR.
--- NOTE | 2019-12-17 16:30 | Diagnostic Imaging Report ---
EXAM: X-RAY XRAY Knee 3v LT CLINICAL HISTORY: Knee pain. COMPARISON: None FINDINGS: Total of 3 views of the left knee were obtained. Alignment is anatomic. There is no fracture, bony lesions or erosions. Joint spaces are unremarkable. Surrounding soft tissue is normal. IMPRESSION: NO FRACTURE.
--- NOTE | 2019-12-17 16:30 | Diagnostic Imaging Report ---
EXAM: X-RAY XRAY Knee 3 views R CLINICAL HISTORY: Knee pain. COMPARISON: None FINDINGS: Total of 3 views of the right knee were obtained. Alignment is anatomic. There is no fracture, bony lesions or erosions. Joint spaces are unremarkable. Surrounding soft tissue is normal. IMPRESSION: NO ACUTE BONY ABNORMALITY.
== END 2019-12-16 18:50 | disposition home or self-care (01) ==
LOC: EMR 17:15
DX: S80.02XA Contusion of left knee, initial encounter (principal); S80.01XA Contusion of right knee, initial encounter; M25.562 Pain in left knee; M25.561 Pain in right knee; M79.652 Pain in left thigh; M79.651 Pain in right thigh; I10 Essential (primary) hypertension; J45.909 Unspecified asthma, uncomplicated; K58.9 Irritable bowel syndrome, unspecified; W01.0XXA Fall on same level from slipping, tripping and stumbling without subsequent striking against object, initial encounter; Y93.9 Activity, unspecified; Y92.9 Unspecified place or not applicable; Z76.0 Encounter for issue of repeat prescription; Z88.0 Allergy status to penicillin; Z88.8 Allergy status to other drugs, medicaments and biological substances
CPT/HCPCS: 73552; 73562; Z7502; 99284

== ENCOUNTER 2020-03-16 18:17 | Emergency (ER) | payer MEDICAID ==
[~2020-03-16] VITALS: Ht 157.5 cm; Wt 39.0 kg
[~2020-03-16 18:17] MED LIST changes: +OMEPRAZOLE20 M2 ORAL
[2020-03-16 18:27] VITALS: BP 114/58
--- NOTE | 2020-03-16 18:42 | Emergency Room Report ---
History of Present Illness General Chief Complaint: Multiple Trauma/Fall Source: Patient Present Illness HPI Patient is a 60-year-old female who presents after reported recent fall. Patient states that she had fallen from standing. Reports having increased pain to both knees. Patient had prior history of irritable bowel disease. She states she had run out of her medications and would like a refill of omeprazole as well as Synthroid. She reports having been able to ambulate normally. Injury occurred several hours prior to arrival. Denies any head injury. She reports having fallen forward. Denies any loss of consciousness. Reports having mechanical fall related to tripping. Allergies: Coded Allergies: PENICILLINS (Unverified Allergy, Unknown, 11/30/14) CIMETIDINE (Verified Adverse Reaction, Intermediate, 08/25/12) NOT ABLE TO DIGEST IT PER PT CIMETIDINE HCL (Verified Adverse Reaction, Intermediate, 08/25/12) NOT ABLE TO DIGEST IT PER PT COVID-19 Screening Contact w/high risk pt: No Recent Travel to affected area: No Experienced COVID-19 symptoms?: No COVID-19 Testing performed ORTHOTIC PRACTITIONER: No Patient History Past Medical History: see triage record Reviewed Nursing Documentation: PMH: Agreed; PSxH: Agreed Nursing Documentation-PMH Past Medical History: No History, Except For Hx Hypertension: Yes Hx Pacemaker: No Hx Asthma: Yes Hx COPD: No Hx Diabetes: No Hx Cancer: No Hx Gastrointestinal Problems: Yes - IBS Hx Dialysis: No Hx Neurological Problems: No Hx Cerebrovascular Accident: No Hx Seizures: No Review of Systems All Other Systems: negative except mentioned in HPI Physical Exam Vital Signs Date Time Temp Pulse Resp B/P (MAP) Pulse Ox O2 Delivery O2 Flow Rate FiO2 03/16/20 18:19 98.4 101 19 114/58 (76) 96 Room Air General Appearance: well appearing, no apparent distress, alert, GCS 15, non- toxic Head: normocephalic, atraumatic ENT: hearing grossly normal, normal voice Neck: full range of motion, supple Respiratory: no respiratory distress, speaking full sentences Cardiovascular #1: normal inspection, normal peripheral pulses Gastrointestinal: normal inspection Rectal: heme negative stool Musculoskeletal: normal inspection, normal range of motion, no calf tenderness Neurologic: alert, motor strength/tone normal, top and trim worker III-XII nml as tested, oriented x3, normal gait Psychiatric: mood/affect normal Skin: no rash Medical Decision Making Diagnostic Impression: Primary Impression: Knee pain, bilateral ER Course Patient presented after recent fall. Differential diagnosis include was not limited to fracture, contusion, dislocation among others. Patient has a benign exam and does not appear to require any imaging or laboratory testing at this time. Patient does not appear to have any evidence of significant trauma to her knees. She is able to range her knees normally. There are no abrasions noted. Patient had no significant swelling or laxity anterior drawer testing. Patient appears to have some chronic conditions including allergies as well as irritable bowel disease. Patient does not appear to have any acute evidence of fracture. Should be able to ambulate without assistance. There is no significant swelling to her knees. There is no soft tissue swelling or abrasions noted. Patient is given Tylenol for pain. She was also advised to follow-up with her primary care physician for further evaluation of her allergies as well as further refills of her thyroid medication. Patient was given medications as she requested. She is advised to return if worse. The patient is advised to follow up with primary care doctor in 1-2 days. Patient is advised to return if any worsening condition or if any changes in status that are concerning. This report is dictated with [employer] life skills coordinator software which may occasionally lead to discrepancies related to use of this software. Last Vital Signs Date Time Temp Pulse Resp B/P (MAP) Pulse Ox O2 Delivery O2 Flow Rate FiO2 03/16/20 18:27 98.4 102 19 114/58 96 Room Air Status: improved Disposition: HOME, SELF-CARE Condition: Stable Scripts Omeprazole (OMEPRAZOLE) 40 Mg Capsule.dr 40 MG ORAL DAILY, #30 CAP Prov: Jamie Gloria MD 03/16/20 Levothyroxine Sodium* (SYNTHROID*) 100 Mcg Tablet 100 MCG ORAL DAILY, #30 TAB Take in the morning on an empty stomach, at least 30 minutes before food. Prov: Jamie Gloria MD 03/16/20 Acetaminophen* (ACETAMINOPHEN EXTRA STRENGTH*) 500 Mg Tablet 500 MG ORAL Q8H PRN for Fever/Headache/Mild Pain, #30 TAB Prov: Jamie Gloria MD 03/16/20 Jamie Gloria MD Mar 16, 2020 18:42
[2020-03-16] MEDS ORDERED: Acetaminophen 500mg (ES) tab ORAL ONE (18:45)
[2020-03-16] MEDS ORDERED: SYNTHROID100 MCG ORAL (18:46)
[2020-03-16] MEDS ORDERED: OMEPRAZOLE40 M1 ORAL (18:46)
[2020-03-16] MEDS ORDERED: ACETAMINOPHEN500 M3 ORAL (18:46)
[2020-03-16 19:00] VITALS: BP 122/76
== END 2020-03-16 19:00 | disposition home or self-care (01) ==
LOC: EMR 18:56
DX: M25.562 Pain in left knee (principal); M25.561 Pain in right knee; I10 Essential (primary) hypertension; K58.9 Irritable bowel syndrome, unspecified; J45.909 Unspecified asthma, uncomplicated; Z88.0 Allergy status to penicillin; Z88.8 Allergy status to other drugs, medicaments and biological substances
CPT/HCPCS: 99281

== ENCOUNTER 2020-04-05 17:44 | Emergency (ER) | payer MEDICAID ==
[~2020-04-05] VITALS: Ht 157.5 cm; Wt 49.9 kg
[~2020-04-05 17:44] MED LIST changes: +ACETAMINOPHEN500 M3 ORAL
--- NOTE | 2020-04-05 18:00 | NUR ---
ED Nurse Note: Pt walked in from home c/o chronic low back and bilateral knee pain. Respiraitons even and unlabored on room air. Vitals stable as documented. A+Ox4, speaking in full sentences.
[2020-04-05 18:09] VITALS: BP 122/67
--- NOTE | 2020-04-05 18:21 | Emergency Room Report ---
History of Present Illness General Chief Complaint: Pain Source: Patient Present Illness HPI 60-year-old female with history of arthritis and chronic low back pain here complaining of worsening low back pain and bilateral knee pain however denies any fall or injury. Patient also reports that she has history of hypothyroidism and has been receiving Synthroid from us once a month and has not seen a primary doctor for many years. Denies any fever and chills, palpitation chest pain. Denies headache and dizziness. Also complains of acid reflux and reports that she wants a refill of her omeprazole for gastritis. Patient also mentions that her toe is turning black however there is only dirt around nailbed without any signs of infection.. Denies any tingling numbness. Allergies: Coded Allergies: PENICILLINS (Unverified Allergy, Unknown, 11/30/14) CIMETIDINE (Verified Adverse Reaction, Intermediate, 08/25/12) NOT ABLE TO DIGEST IT PER PT CIMETIDINE HCL (Verified Adverse Reaction, Intermediate, 08/25/12) NOT ABLE TO DIGEST IT PER PT COVID-19 Screening Contact w/high risk pt: No Recent Travel to affected area: No Experienced COVID-19 symptoms?: No COVID-19 Testing performed TYPE PROOF REPRODUCER: No Patient History Past Medical History: see triage record Past Surgical History: none Pertinent Family History: none Now: No Immunizations: UTD Reviewed Nursing Documentation: PMH: Agreed; PSxH: Agreed Nursing Documentation-PMH Past Medical History: No History, Except For Hx Hypertension: Yes Hx Pacemaker: No Hx Asthma: Yes Hx COPD: No Hx Diabetes: No Hx Cancer: No Hx Gastrointestinal Problems: Yes - IBS Hx Dialysis: No Hx Neurological Problems: No Hx Cerebrovascular Accident: No Hx Seizures: No Review of Systems All Other Systems: negative except mentioned in HPI Physical Exam Vital Signs Date Time Temp Pulse Resp B/P (MAP) Pulse Ox O2 Delivery O2 Flow Rate FiO2 04/05/20 17:54 99.0 95 17 116/72 (87) 98 Room Air Sp02 EP Interpretation: reviewed, normal General Appearance: no apparent distress, alert, GCS 15, non-toxic Head: normocephalic, atraumatic Eyes: bilateral eye normal inspection, bilateral eye PERRL ENT: hearing grossly normal, normal pharynx, no angioedema, normal voice Neck: full range of motion, supple, thyroid normal, no meningismus, no bony tend, supple/symm/no masses Respiratory: chest non-tender, lungs clear, normal breath sounds, no rhonchi, no respiratory distress, no retraction, no accessory muscle use, no wheezing, speaking full sentences Cardiovascular #1: regular rate, rhythm, no edema, no murmur Cardiovascular #2: 2+ carotid (R), 2+ carotid (L), 2+ radial (R), 2+ radial (L) , 2+ dorsalis pedis (R), 2+ dorsalis pedis (L) Gastrointestinal: soft, no mass Rectal: deferred Genitourinary: no CVA tenderness Musculoskeletal: back normal, digits/nails normal, no calf tenderness Neurologic: alert, motor strength/tone normal, oriented x3, sensory intact, responsive, speech normal Psychiatric: judgement/insight normal, memory normal, mood/affect normal, no suicidal/homicidal ideation Skin: no rash Lymphatic: no adenopathy Medical Decision Making PA Attestation All diagnoses and treatment plans were reviewed and discussed with my supervising physician Dr. Richmond Diagnostic Impression: Primary Impression: Chronic back pain Additional Impression: Medication refill ER Course 60-year-old female with history of arthritis and chronic low back pain here complaining of worsening low back pain and bilateral knee pain however denies any fall or injury. Patient also reports that she has history of hypothyroidism and has been receiving Synthroid from us once a month and has not seen a primary doctor for many years. Denies any fever and chills, palpitation chest pain. Denies headache and dizziness. Also complains of acid reflux and reports that she wants a refill of her omeprazole for gastritis. Patient also mentions that her toe is turning black however there is only dirt around nailbed without any signs of infection.. Denies any tingling numbness. Ddx considered but are not limited to: Lumbar spine sprain, strain, fracture, contusion, neuropathy, chronic back pain Patient has had multiple imaging to present arthritis has been noticed Vital signs: are WNL, pt. is afebrile H&PE are most consistent with: Chronic back pain ORDERS: Synthroid, omeprazole, Tylenol, Voltaren gel ER intervention: tylenol DISCHARGE: At this time pt. is stable for d/c to home. Will provide printed patient care instructions, and any necessary prescriptions. Care plan and follow up instructions have been discussed with the patient prior to discharge. Gave a list of free clinics patient follow primary doctor, if worsening symptoms return to the emergency room Last Vital Signs Date Time Temp Pulse Resp B/P (MAP) Pulse Ox O2 Delivery O2 Flow Rate FiO2 04/05/20 18:09 98.8 77 17 122/67 99 Room Air Disposition: HOME, SELF-CARE Condition: Stable Scripts Diclofenac Sodium (VOLTAREN) 100 Gm Gel..gram. 2 GM TP BID, #100 GM Prov: Maria Cuellar 04/05/20 Omeprazole (OMEPRAZOLE) 40 Mg Capsule.dr 40 MG ORAL DAILY, #30 CAP Prov: Maria Cuellar 04/05/20 Levothyroxine Sodium* (SYNTHROID*) 100 Mcg Tablet 100 MCG ORAL DAILY, #30 TAB Take in the morning on an empty stomach, at least 30 minutes before food. Prov: Maria Cuellar 04/05/20 Acetaminophen* (ACETAMINOPHEN EXTRA STRENGTH*) 500 Mg Tablet 500 MG ORAL Q8H PRN for Fever/Headache/Mild Pain, #30 TAB Prov: Maria Cuellar 04/05/20 Referrals: NON PHYSICIAN (PCP) Patient Instructions: Back Pain, Adult, [id number], Medicine Refill at the Emergency Department Additional Instructions: Take medication as directed, follow primary care provider, avoid strenuous physical activity, if worsening symptoms return to the emergency Maria Cuellar Apr 05, 2020 18:21
[2020-04-05] MEDS ORDERED: ACETAMINOPHEN500 M3 ORAL (18:22)
[2020-04-05] MEDS ORDERED: VOLTAREN100 G1 TP (18:22)
[2020-04-05] MEDS ORDERED: SYNTHROID100 MCG ORAL (18:22)
[2020-04-05] MEDS ORDERED: OMEPRAZOLE40 M1 ORAL (18:22)
--- NOTE | 2020-04-05 18:30 | NUR ---
ED Nurse Note: pt denies being homeless. home address on file
[2020-04-05] MEDS ORDERED: Acetaminophen 500mg (ES) tab ORAL ONE ×2 (19:06→19:15)
[2020-04-05 19:10] VITALS: BP 128/74
--- NOTE | 2020-04-05 19:10 | NUR ---
ED Nurse Note: Pt cleared by health care Provider for discharge. DC instructions/prescription were given and explained to pt and verbalized understanding of teachings. All medical deviecs such as ID band removed. Pt is AAO x4, ambulatory and left with all personal belongings.
== END 2020-04-05 19:10 | disposition home or self-care (01) ==
LOC: EMR 18:14
DX: G89.29 Other chronic pain (principal); M54.5 Low back pain; E03.9 Hypothyroidism, unspecified; Z76.0 Encounter for issue of repeat prescription; I10 Essential (primary) hypertension; J45.909 Unspecified asthma, uncomplicated; K58.9 Irritable bowel syndrome, unspecified; Z88.0 Allergy status to penicillin; Z88.8 Allergy status to other drugs, medicaments and biological substances; Z79.899 Other long term (current) drug therapy
CPT/HCPCS: 99282

== ENCOUNTER 2020-05-11 18:11 | Emergency (ER) | payer MEDICAID ==
[~2020-05-11] VITALS: Ht 157.5 cm; Wt 37.2 kg
--- NOTE | 2020-05-11 18:35 | NUR ---
ED Nurse Note: urine sent as ordered.
--- NOTE | 2020-05-11 18:51 | NUR ---
ED Nurse Note: pt eval by sofia branch. urine result pending. pt without n/v/d. pt does relate frequency and dysuria.
--- NOTE | 2020-05-11 18:54 | Emergency Room Report ---
History of Present Illness General Chief Complaint: Female Urogenital Problems Source: Patient Present Illness HPI 60 YO female presents to the ED c/o 01/11 in severity low back pain with associated urinary frequency. Pt. denies abdominal tenderness. She reports feeling very "full" and needing to urinate frequently but not being very productive. Pt. denies constipation or diarrhea. She denies trauma or fall. She denies hematuria. She denies fevers but reports chills. Pt. denies nausea or vomiting. She is also requesting refill for her Synthroid and omeprazole. She reports noticing having to get up multiple times a night to urinate. She denies excessive thirst. She denies hx of DM. 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 Patient History Past Medical History: see triage record Past Surgical History: none Pertinent Family History: none Last Menstrual Period: na Now: No Reviewed Nursing Documentation: PMH: Agreed; PSxH: Agreed Nursing Documentation-PMH Past Medical History: No History, Except For Hx Hypertension: Yes Hx Pacemaker: No Hx Asthma: Yes Hx COPD: No Hx Diabetes: No Hx Cancer: No Hx Gastrointestinal Problems: Yes - IBS Hx Dialysis: No Hx Neurological Problems: No Hx Cerebrovascular Accident: No Hx Seizures: No Review of Systems All Other Systems: negative except mentioned in HPI Physical Exam Vital Signs Date Time Temp Pulse Resp B/P (MAP) Pulse Ox O2 Delivery O2 Flow Rate FiO2 05/11/20 18:20 98.1 92 17 117/61 (79) 99 Room Air Sp02 EP Interpretation: reviewed, normal General Appearance: no apparent distress, alert, GCS 15, non-toxic Head: normocephalic, atraumatic Eyes: bilateral eye normal inspection, bilateral eye PERRL ENT: hearing grossly normal, normal voice Neck: full range of motion Respiratory: chest non-tender, lungs clear, normal breath sounds, speaking full sentences Cardiovascular #1: regular rate, rhythm, no edema Gastrointestinal: normal bowel sounds, non tender, soft, no peritonitis, non- distended, no guarding Rectal: deferred Genitourinary: normal inspection, no CVA tenderness Musculoskeletal: normal range of motion, gait/station normal, non-tender Neurologic: alert, motor strength/tone normal, oriented x3, sensory intact, responsive, speech normal Psychiatric: judgement/insight normal Lymphatic: no adenopathy Medical Decision Making PA Attestation Dr. Meeks Is my supervising Physician whom patient management has been discussed with. Diagnostic Impression: Primary Impression: Urinary frequency Additional Impressions: Medication refill Back pain Qualified Codes: M54.5 - Low back pain ER Course 60 YO female presents to the ED c/o 01/11 in severity low back pain with associated urinary frequency. Pt. denies abdominal tenderness. She reports feeling very "full" and needing to urinate frequently but not being very productive. Pt. denies constipation or diarrhea. She denies trauma or fall. She denies hematuria. She denies fevers but reports chills. Pt. denies nausea or vomiting. She is also requesting refill for her Synthroid and omeprazole. She reports noticing having to get up multiple times a night to urinate. She denies excessive thirst. She denies hx of DM. Ddx considered but are not limited to UTi , Pyelo, STI, Stone, Cystitis Vital signs: are WNL, pt. is afebrile H&PE are most consistent with UTI ORDERS: - UA labs are attached : WNL -AccuCheck: 92 ED INTERVENTIONS: -PYridium PO. - Lidoderm TP -I do not identify an emergent condition at this time. With current presentation, pt. is stable for close outpatient follow up and conservative treatment. D/w pt. to return promptly to ED with worsening or new symptoms.- Pt. verbalizes' understanding and agreement with proposed treatment plan.proposed treatment plan. --I do note that last month around this time is when patient received her most recent refill for her medications for which she habitually frequents the ER for and does not follow-up with primary care. I suspect that this visit was primarily for medication refill and that symptoms but she was complaining of her malingering. DISCHARGE: At this time pt. is stable for d/c to home. Will provide printed patient care instructions, and any necessary prescriptions. Care plan and follow up instructions have been discussed with the patient prior to discharge. Labs Test 05/11/20 18:35 Urine Color Pale yellow Urine Appearance Clear Urine pH 8 (4.5-8.0) Urine Specific [place] 1.010 (1.005-1.035) Urine Protein Negative (NEGATIVE) Urine Glucose (UA) Negative (NEGATIVE) Urine Ketones Negative (NEGATIVE) Urine Blood Negative (NEGATIVE) Urine Nitrite Negative (NEGATIVE) Urine Bilirubin Negative (NEGATIVE) Urine Urobilinogen Normal MG/DL (0.0-1.0) Urine Leukocyte Esterase Negative (NEGATIVE) Last Vital Signs Date Time Temp Pulse Resp B/P (MAP) Pulse Ox O2 Delivery O2 Flow Rate FiO2 05/11/20 18:20 98.1 92 17 117/61 (79) 99 Room Air Status: improved Disposition: HOME, SELF-CARE Condition: Stable Scripts Lidocaine Patch* (Lidoderm Patch*) 1 Each Adh..patch 1 PATCH TOPIC DAILY, #30 PATCH 0 Refills Patch(es) may remain in place for up to 12 hours in any 24-hour period. Prov: Kylah Fraga 05/11/20 Omeprazole (OMEPRAZOLE) 20 Mg Capsule.dr 20 MG ORAL DAILY for Gerd, #30 CAP Prov: Kylah Fraga 05/11/20 Levothyroxine Sodium* (SYNTHROID*) 100 Mcg Tablet 100 MCG ORAL DAILY for Thyroid for 30 Days, #30 TAB Take in the morning on an empty stomach, at least 30 minutes before food. Prov: Kylah Fraga 05/11/20 Tramadol Hcl* (ULTRAM*) 50 Mg Tablet 50 MG ORAL Q6H PRN for For Pain, #12 TAB 0 Refills Prov: Kylah Fraga 05/11/20 Phenazopyridine Hcl* (PYRIDIUM*) 200 Mg Tablet 200 MG ORAL THREE TIMES A DAY for 3 Days, #9 TAB 0 Refills Prov: Kylah Fraga 05/11/20 [facility]errals: [facility] Additional Instructions: Take medications as directed. Follow up with a Primary Care Provider in 3-5 days, even if your symptoms have resolved. --Please review list of primary care clinics, if you do not already have a primary care provider Return sooner to ED if new symptoms occur, or current symptoms become worse. - Please note that this Emergency Department Report was dictated using BiteHunterconsole manager technology software, occasionally this can lead to erroneous entry secondary to interpretation by the dictation equipment. Kylah Fraga May 11, 2020 18:54
[2020-05-11 19:00] VITALS: BP 121/60
[2020-05-11] MEDS ORDERED: Phenazopyridine 200mg tab ORAL ONE (19:00)
[2020-05-11 19:34] LABS: APPEARANCE,URINE CLEAR; BILIRUBIN, URINE NEGATIVE (NEGATIVE); COLOR,URINE PALE YELLOW; GLUCOSE, URINE (UA) NEGATIVE (NEGATIVE); KETONES,URINE NEGATIVE (NEGATIVE); LEUKOCYTE ESTERASE ,URINE NEGATIVE (NEGATIVE); NITRITE,URINE NEGATIVE (NEGATIVE); PH,URINE 8 (4.5-8.0); PROTEIN,URINE NEGATIVE (NEGATIVE); UROBILINOGEN,URINE NORMAL MG/DL (0.0-1.0)
[2020-05-11] MEDS ORDERED: TRAMADOL HCL50 MG ORAL (19:51)
[2020-05-11] MEDS ORDERED: PHENAZOPYRIDIN200 MG ORAL (19:51)
[2020-05-11] MEDS ORDERED: SYNTHROID100 MCG ORAL (19:51)
[2020-05-11] MEDS ORDERED: OMEPRAZOLE20 M2 ORAL (19:51)
[2020-05-11 20:00] VITALS: BP 123/67
--- NOTE | 2020-05-11 20:00 | NUR ---
ER DISCHARGE NOTE: Patient is cleared to be discharged per ERMD, pt is aox4, on room air, with stable vital signs. pt was given dc and prescription instructions, pt was able to verbalize understanding, pt id band removed without complications. pt is able to ambulate with steady gait. pt took all belongings.
[2020-05-11] MEDS ORDERED: LIDODERM700 M1 TOPIC (20:01)
== END 2020-05-11 20:00 | disposition home or self-care (01) ==
LOC: EMR 18:35
DX: R35.0 Frequency of micturition (principal); Z76.0 Encounter for issue of repeat prescription; M54.5 Low back pain; I10 Essential (primary) hypertension; J45.909 Unspecified asthma, uncomplicated; K58.9 Irritable bowel syndrome, unspecified; Z88.0 Allergy status to penicillin; Z88.8 Allergy status to other drugs, medicaments and biological substances
CPT/HCPCS: 81003; Z7502; 99283

== ENCOUNTER 2020-05-19 10:16 | Emergency (ER) | payer MEDICAID ==
[~2020-05-19] VITALS: Ht 157.5 cm; Wt 37.2 kg
[~2020-05-19 10:16] MED LIST changes: +TRAMADOL HCL50 MG ORAL
--- NOTE | 2020-05-19 11:02 | NUR ---
ED Nurse Note:urine sent to labs
[2020-05-19 11:10] LABS: APPEARANCE,URINE CLEAR; BILIRUBIN, URINE NEGATIVE (NEGATIVE); GLUCOSE, URINE (UA) NEGATIVE (NEGATIVE); KETONES,URINE NEGATIVE (NEGATIVE); LEUKOCYTE ESTERASE ,URINE 1+ (NEGATIVE); NITRITE,URINE NEGATIVE (NEGATIVE); PH,URINE 6.5 (4.5-8.0); PROTEIN,URINE NEGATIVE (NEGATIVE); UROBILINOGEN,URINE NORMAL MG/DL (0.0-1.0)
[2020-05-19 11:16] LABS: COLOR,URINE YELLOW
--- NOTE | 2020-05-19 11:21 | Emergency Room Report ---
History of Present Illness General Chief Complaint: Female Urogenital Problems Source: Patient Present Illness HPI 60-year-old female presents with dysuria over the past week, with increasing frequency no aggravating relieving factors severity is mild, some right flank pain, patient reports that she has not picked up the medications that she has been prescribed no fevers no chills patient also reports trouble voiding patient presents for evaluation and treatment Allergies: Coded Allergies: PENICILLINS (Unverified Allergy, Unknown, 11/30/14) CIMETIDINE (Verified Adverse Reaction, Intermediate, 08/25/12) NOT ABLE TO DIGEST IT PER PT CIMETIDINE HCL (Verified Adverse Reaction, Intermediate, 08/25/12) NOT ABLE TO DIGEST IT PER PT COVID-19 Screening Contact w/high risk pt: No Recent Travel to affected area: No Experienced COVID-19 symptoms?: No COVID-19 Testing performed PATENT SOLICITOR: No Patient History Past Medical History: see triage record Last Menstrual Period: na Reviewed Nursing Documentation: PMH: Agreed; PSxH: Agreed Nursing Documentation-PMH Past Medical History: No History, Except For Hx Hypertension: Yes Hx Pacemaker: No Hx Asthma: Yes Hx COPD: No Hx Diabetes: No Hx Cancer: No Hx Gastrointestinal Problems: Yes - IBS Hx Dialysis: No Hx Neurological Problems: No Hx Cerebrovascular Accident: No Hx Seizures: No Review of Systems All Other Systems: negative except mentioned in HPI Physical Exam Vital Signs Date Time Temp Pulse Resp B/P (MAP) Pulse Ox O2 Delivery O2 Flow Rate FiO2 05/19/20 10:25 97.2 93 17 110/68 (82) 98 Room Air General Appearance: well appearing, no apparent distress Head: normocephalic, atraumatic ENT: hearing grossly normal, normal voice Neck: full range of motion, supple Respiratory: no respiratory distress, speaking full sentences Gastrointestinal: non tender, soft, non-distended, no guarding, no rebound Genitourinary: no CVA tenderness Neurologic: alert, normal gait Psychiatric: mood/affect normal Skin: no rash Medical Decision Making Diagnostic Impression: Primary Impression: Dysuria ER Course [id number] ultrasound PVR cannot be calculated, after patient urinated bladder decompressed, no evidence of urinary retention 60-year-old female presents symptomatic with dysuria, will provide patient with Bactrim Disposition home with return precautions Laboratory Tests Test 05/19/20 10:50 Urine Color Yellow Urine Appearance Clear Urine pH 6.5 (4.5-8.0) Urine Specific [place] 1.015 (1.005-1.035) Urine Protein Negative (NEGATIVE) Urine Glucose (UA) Negative (NEGATIVE) Urine Ketones Negative (NEGATIVE) Urine Blood Negative (NEGATIVE) Urine Nitrite Negative (NEGATIVE) Urine Bilirubin Negative (NEGATIVE) Urine Urobilinogen Normal MG/DL (0.0-1.0) Urine Leukocyte Esterase 1+ (NEGATIVE) H Urine RBC 0 /HPF (0 - 2) Urine WBC 0-2 /HPF (0 - 2) Urine Squamous Epithelial Cells None /LPF (NONE/OCC) Urine Bacteria None /HPF (NONE) Last Vital Signs Date Time Temp Pulse Resp B/P (MAP) Pulse Ox O2 Delivery O2 Flow Rate FiO2 05/19/20 10:25 97.2 93 17 110/68 (82) 98 Room Air Disposition: HOME, SELF-CARE Condition: Stable Scripts Trimethoprim/Sulfamethoxazole 160/800* (BACTRIM DS TABLET*) 1 Each Tablet 1 TAB ORAL Q12H, #14 TAB 0 Refills Prov: Naveed Clark MD 05/19/20 [facility]: [facility]P) [facility]. [facility] Patient Instructions: Urinary Tract Infection Additional Instructions: The patient was provided with discharge instructions, notified to follow-up with a primary care doctor and or specialist in the next 24-48 hours, and to return to the ED if they have worsening of their symptoms. Please note that this report is being documented using Ozmosis technology. This can lead to erroneous entry secondary to incorrect interpretation by the dictating instrument. Naveed Clark MD May 19, 2020 11:21
[2020-05-19 11:40] VITALS: BP 110/68
[2020-05-19] MEDS ORDERED: BACTRIM DS TAB1 EAC1 ORAL (11:52)
[2020-05-19 12:00] VITALS: BP 110/68
== END 2020-05-19 12:20 | disposition home or self-care (01) ==
LOC: EMR 10:40
DX: R30.0 Dysuria (principal); R10.9 Unspecified abdominal pain; I10 Essential (primary) hypertension; Z88.0 Allergy status to penicillin
CPT/HCPCS: 81003; Z7502; 99283

== ENCOUNTER 2020-06-15 17:50 | Emergency (ER) | payer MEDICAID ==
[~2020-06-15] VITALS: Ht 157.5 cm; Wt 41.7 kg
[~2020-06-15 17:50] MED LIST changes: +BACTRIM DS TAB1 EAC1 ORAL
--- NOTE | 2020-06-15 18:04 | Emergency Room Report ---
History of Present Illness General Chief Complaint: Chest Pain Source: Patient Present Illness HPI 60-year-old female, history of hypothyroidism presents with chest tightness ongoing for 3 days worsened by people smoking on the street, not aggravated with exertion alleviated by avoiding people who are smoking severity is moderate, constant no nausea no vomiting no dyspnea on exertion no diaphoresis, patient p resents for evaluation and treatment Allergies: Coded Allergies: PENICILLINS (Unverified Allergy, Unknown, 11/30/14) CIMETIDINE (Verified Adverse Reaction, Intermediate, 08/25/12) NOT ABLE TO DIGEST IT PER PT CIMETIDINE HCL (Verified Adverse Reaction, Intermediate, 08/25/12) NOT ABLE TO DIGEST IT PER PT COVID-19 Screening Contact w/high risk pt: No Recent Travel to affected area: No Experienced COVID-19 symptoms?: No COVID-19 Testing performed 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 Patient History Past Medical History: see triage record Reviewed Nursing Documentation: PMH: Agreed; PSxH: Agreed Nursing Documentation-PMH Hx Hypertension: Yes Hx Pacemaker: No Hx Asthma: Yes Hx COPD: No Hx Diabetes: No Hx Cancer: No Hx Gastrointestinal Problems: Yes - IBS Hx Dialysis: No Hx Neurological Problems: No Hx Cerebrovascular Accident: No Hx Seizures: No Review of Systems All Other Systems: negative except mentioned in HPI Physical Exam Vital Signs Date Time Temp Pulse Resp B/P (MAP) Pulse Ox O2 Delivery O2 Flow Rate FiO2 06/15/20 17:55 98.2 92 17 118/72 (87) 97 Room Air Sp02 EP Interpretation: reviewed, normal General Appearance: well appearing, no apparent distress, alert Head: normocephalic, atraumatic Eyes: bilateral eye PERRL, bilateral eye EOMI ENT: uvula midline, moist mucus membranes Neck: supple, thyroid normal, supple/symm/no masses Respiratory: lungs clear, no respiratory distress, no retraction, no accessory muscle use Cardiovascular #1: normal peripheral pulses, regular rate, rhythm, no edema, no gallop, no murmur Gastrointestinal: non tender, soft, no guarding, no rebound Musculoskeletal: normal inspection Neurologic: alert, oriented x3 Psychiatric: mood/affect normal Skin: no rash, warm/dry Medical Decision Making Diagnostic Impression: Primary Impression: Chest pain Qualified Codes: R07.9 - Chest pain, unspecified ER Course 60-year-old female presents with vague chest pain, differential diagnosis includes reactive airway disease, ACS, pneumonia Troponin negative, EKG negative, chest x-ray negative Patient initially to be admitted to the hospital however she wants to leave AGAINST MEDICAL ADVICE states that she only needs an inhaler patient states she also does not want to stay in the hospital The patient has requested to leave the ED against medical advice. The patient reason(s) for leaving include, but are not limited to, the following: I don't want to stay in the hospital. I believe this patient is of sound mind and competent to refuse medical care. The patient is responding and asking questions appropriately. The patient is oriented to person, place and time. The patient is not psychotic, delusional, suicidal, homicidal or hallucinating. The patient demonstrates a normal mental capacity to make decisions regarding their healthcare. The patient is clinically sober and does not appear to be under the influence of any illicit drugs at this time. The patient has been advised of the risks, in layman terms, of leaving AMA which include, but are not limited to , coma, permanent disability, loss of current lifestyle, delay in diagnosis. Alternatives have been offered - the patient remains steadfast in their wish to leave. The patient has been advised that should they change their mind they are welcome to return to this hospital, or any other, at any time. The patient understands that in no way does an AMA discharge mean that I do not want them to have the best medical care available. To this end, I have provided appropriate prescriptions, referrals, and discharge instructions. The patient did sign AMA paperwork. The above discussion was witnessed by another member of staff. Laboratory Tests Test 06/15/20 18:18 White Blood Count 5.1 K/UL (4.8-10.8) Red Blood Count 3.98 M/UL (4.20-5.40) L Hemoglobin 12.7 G/DL (12.0-16.0) Hematocrit 38.1 % (37.0-47.0) Mean Corpuscular Volume 96 FL (80-99) Mean Corpuscular Hemoglobin 32.0 PG (27.0-31.0) H Mean Corpuscular Hemoglobin Concent 33.4 G/DL (32.0-36.0) Red Cell Distribution Width 11.9 % (11.6-14.8) Platelet Count 246 K/UL (150-450) Mean Platelet Volume 6.9 FL (6.5-10.1) Neutrophils (%) (Auto) 54.2 % (45.0-75.0) Lymphocytes (%) (Auto) 36.4 % (20.0-45.0) Monocytes (%) (Auto) 6.7 % (1.0-10.0) Eosinophils (%) (Auto) 1.3 % (0.0-3.0) Basophils (%) (Auto) 1.3 % (0.0-2.0) Sodium Level 137 MMOL/L (136-145) Potassium Level 4.1 MMOL/L (3.5-5.1) Chloride Level 103 MMOL/L (98-107) Carbon Dioxide Level 29 MMOL/L (21-32) Anion Gap 5 mmol/L (5-15) Blood Urea Nitrogen 18 mg/dL (7-18) Creatinine 0.7 MG/DL (0.55-1.30) Estimated Glomerular Filtration Rate > 60 mL/min (>60) Glucose Level 89 MG/DL (74-106) Calcium Level 8.9 MG/DL (8.5-10.1) Total Bilirubin 0.2 MG/DL (0.2-1.0) Aspartate Amino Transferase (AST) 16 U/L (15-37) Alanine Aminotransferase (ALT) 15 U/L (12-78) Alkaline Phosphatase 82 U/L (46-116) Troponin I 0.004 ng/mL (0.000-0.056) Total Protein 7.2 G/DL (6.4-8.2) Albumin 3.8 G/DL (3.4-5.0) Globulin 3.4 g/dL Albumin/Globulin Ratio 1.1 (1.0-2.7) EKG Diagnostic Results Troponin ordered: Yes When was troponin ordered?: Jun 15, 2020 - 1801 EKG Time: 18:12 EP Interpretation: NSR, rate 83, QTc 425, no acute escalations, normal axis Rhythm Strip Diag. Results Rhythm Strip Time: 18:14 EP Interpretation: yes Rate: 84 Rhythm: NSR, no PVC's, no ectopy Chest X-Ray Diagnostic Results Chest X-Ray Diagnostic Results : Chest X-Ray Ordered: Yes # of Views/Limited/Complete: 1 View Indication: Chest Pain EP Interpretation: Yes Interpretation: no consolidation, no effusion, no pneumothorax, no acute cardiopulmonary disease Impression: No acute disease Electronically Signed by: Naveed Clark MD Last Vital Signs Date Time Temp Pulse Resp B/P (MAP) Pulse Ox O2 Delivery O2 Flow Rate FiO2 06/15/20 17:55 98.2 92 17 118/72 (87) 97 Room Air Disposition: AGAINST MEDICAL ADVICE Condition: Stable Scripts Omeprazole (OMEPRAZOLE) 40 Mg Capsule.dr 40 MG ORAL DAILY for Gerd, #90 CAP Prov: Naveed Clark MD 06/15/20 Levothyroxine Sodium* (SYNTHROID*) 100 Mcg Tablet 100 MCG ORAL DAILY for Thyroid, #90 TAB Take in the morning on an empty stomach, at least 30 minutes before food. Prov: Naveed Clark MD 06/15/20 Albuterol Sulfate* (Albuterol Sulfate Hfa*) 8.5 Gm Hfa.aer.ad 2 PUFF INH Q6H PRN for Shortness of Breath, #1 INH Prov: Naveed Clark MD 06/15/20 Referrals: [facility]. [facility] Patient Instructions: Nonspecific Chest Pain Additional Instructions: The patient was provided with discharge instructions, notified to follow-up with a primary care doctor and or specialist in the next 24-48 hours, and to return to the ED if they have worsening of their symptoms. Please note that this report is being documented using DRAGON technology. This can lead to erroneous entry secondary to incorrect interpretation by the dictating instrument. Naveed Clark MD Jun 15, 2020 18:04
[2020-06-15 18:18] VITALS: BP 118/72
--- NOTE | 2020-06-15 18:22 | NUR ---
ED Nurse Note:pt. came from home with c/o chest/epigastric pain, VSS, pt. is A/Ox4 ambulatory with steady gait, blood was sent to labs, EKG done
[2020-06-15 18:38] LABS: BASOPHILS % (AUTO) 1.3 % (0.0-2.0); EOSINOPHILS % (AUTO) 1.3 % (0.0-3.0); HEMATOCRIT 38.1 % (37.0-47.0); HEMOGLOBIN 12.7 G/DL (12.0-16.0); LYMPHOCYTES % (AUTO) 36.4 % (20.0-45.0); MEAN CORPUSCULAR VOLUME 96 FL (80-99); MONOCYTES % (AUTO) 6.7 % (1.0-10.0); NEUTROPHILS % (AUTO) 54.2 % (45.0-75.0); PLATELET COUNT 246 K/UL (150-450); RED BLOOD COUNT 3.98 M/UL (4.20-5.40); RED CELL DISTRIBUTION WIDTH 11.9 % (11.6-14.8); WHITE BLOOD COUNT 5.1 K/UL (4.8-10.8)
[2020-06-15 18:41] LABS: ANION GAP 5 mmol/L (5-15); BLOOD UREA NITROGEN 18 mg/dL (7-18); CALCIUM 8.9 MG/DL (8.5-10.1); CARBON DIOXIDE 29 MMOL/L (21-32); CHLORIDE 103 MMOL/L (98-107); CREATININE 0.7 MG/DL (0.55-1.30); POTASSIUM 4.1 MMOL/L (3.5-5.1); SODIUM 137 MMOL/L (136-145)
[2020-06-15 18:46] LABS: ALANINE AMINOTRANSFERASE 15 U/L (12-78); ALBUMIN 3.8 G/DL (3.4-5.0); ALBUMIN/GLOBULIN RATIO 1.1 (1.0-2.7); ALKALINE PHOSPHATASE 82 U/L (46-116); ASPARTATE AMINO TRANSFERASE 16 U/L (15-37); BILIRUBIN,TOTAL 0.2 MG/DL (0.2-1.0)
--- NOTE | 2020-06-15 19:15 | NUR ---
ED Nurse Note: Report received from SCAR Pierre. EVER Clark bedside speaking to pt. She is in no acute distress, resting in bed.
[2020-06-15] MEDS ORDERED: ALBUTEROL SULF8.5 G1 INH (19:18)
[2020-06-15] MEDS ORDERED: SYNTHROID100 MCG ORAL (19:18)
[2020-06-15] MEDS ORDERED: OMEPRAZOLE40 M1 ORAL (19:18)
[2020-06-15 19:30] VITALS: BP 122/78
--- NOTE | 2020-06-15 19:30 | NUR ---
ED Nurse Note: Patient spoke with EVER Clark about leaving AMA. Patient does not want to stay in the hospital for admission. EVER explained all risks of leaving AMA, RN witnessed. She signed AMA form. Patient is aaox4, vital signs are stable and she is ambulatory with steady gait. Patient IV removed without complication and ID band removed as well.
--- NOTE | 2020-06-15 19:30 | NUR ---
AMA: SEE AMA FORM.
[2020-06-16] MEDS ORDERED: VENTOLIN HFA18 GM INH (12:08)
--- NOTE | 2020-06-16 16:33 | Diagnostic Imaging Report ---
Indication: Chest pain Technique: One view of the chest Comparison: none Findings: Lungs and pleural spaces are clear. Heart size is normal. No significant change Impression: No acute process
== END 2020-06-15 19:30 | disposition left against medical advice (07) ==
LOC: EMR 18:05
DX: R07.9 Chest pain, unspecified (principal); Z53.29 Procedure and treatment not carried out because of patient's decision for other reasons; I10 Essential (primary) hypertension; J45.909 Unspecified asthma, uncomplicated; K58.9 Irritable bowel syndrome, unspecified; Z88.0 Allergy status to penicillin; Z88.8 Allergy status to other drugs, medicaments and biological substances
CPT/HCPCS: 36415; 71045; 80053; 84484; 85025; 93005; Z7502; 99283

== ENCOUNTER 2020-06-16 11:55 | Emergency (ER) | payer MEDICAID ==
[~2020-06-16] VITALS: Ht 157.5 cm; Wt 40.8 kg
[~2020-06-16 11:55] MED LIST changes: +ALBUTEROL SULF8.5 G1 INH
[2020-06-16] MEDS ORDERED: VENTOLIN HFA18 GM INH (12:08)
[2020-06-16 12:10] VITALS: BP 115/66
--- NOTE | 2020-06-16 12:10 | NUR ---
ED Nurse Note: pt presents toED c/o "coldness" in her chest. pt states that she also feels like her heart is beating fast, HR on triage is stable, HR via auscultation is 91. pt denies any pain or fevers/chills, appears to have a cough but she states this is chronic for her. no other complaints at this time, no acute distress is noted
--- NOTE | 2020-06-16 12:28 | NUR ---
ED Nurse Note: COVID swab collected and sent to lab
--- NOTE | 2020-06-16 12:39 | Emergency Room Report ---
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 Differential diagnosis include was not limited to coronavirus infection, pneumonia, asthma exacerbation among others. EKG interpreted by me showed normal sinus rhythm with a rate of [address] or T wave changes noted. Last Vital Signs Date Time Temp Pulse Resp B/P (MAP) Pulse Ox O2 Delivery O2 Flow Rate FiO2 06/16/20 12:10 98 18 Room Air 06/16/20 12:10 97.0 115/66 99 Disposition: HOME, SELF-CARE Condition: Stable Scripts Albuterol Sulfate (VENTOLIN HFA) 18 Gm Hfa.aer.ad 2 PUFFS INH EVERY 6 HOURS, #18 GM 0 Refills Prov: Jamie Gloria MD 06/16/20 [facility] ([facility]P) Patient Instructions: Asthma, Adult Additional Instructions: Follow up with your doctor for recheck. Return if worse. Jamie Gloria MD Jun 16, 2020 12:39
[2020-06-16] MEDS ORDERED: Albuterol/Ipratropium 3ml neb HHN ONE (13:00)
--- NOTE | 2020-06-16 13:24 | NUR ---
ED Nurse Note: RT @ bedside
[2020-06-16 13:40] VITALS: BP 123/72
--- NOTE | 2020-06-18 16:12 | Cardiology Report ---
APPROVED REPORT EKG Measurement Heart [id number] <Conclusion> Normal sinus rhythm Biatrial enlargement Abnormal ECG
== END 2020-06-16 13:40 | disposition home or self-care (01) ==
LOC: EMR 12:09
DX: J45.909 Unspecified asthma, uncomplicated (principal); I10 Essential (primary) hypertension; Z88.0 Allergy status to penicillin; Z88.8 Allergy status to other drugs, medicaments and biological substances; K58.9 Irritable bowel syndrome, unspecified
CPT/HCPCS: 93005; 94640; U0002; Z7502; 99283; J7620

== ENCOUNTER 2020-07-13 17:59 | Emergency (ER) | payer MEDICAID ==
[~2020-07-13] VITALS: Ht 157.5 cm; Wt 37.2 kg
[2020-07-13 18:30] VITALS: BP 121/66
--- NOTE | 2020-07-13 18:50 | Emergency Room Report ---
History of Present Illness General Chief Complaint: Back Pain-No Injury Source: Patient, Medical Record Present Illness HPI 60 YO female presents to the ED c/o exacerbation of her chronic back pain. Pt. reports she has had similar symptoms in the past. Pt. reports intermittent numbness to the side of the calfs and some toes bilaterally. She reports she has been having cramping sensation in her feet bilaterally x 1 week. Pt. denies trauma or fall. She denies fevers or chills. She denies urinary symptoms such as incontinence, dysuria, frequency, or urgency. She denies hematuria. She denies hx of kidney stones. Pt. denies abdominal pain. She denies MIR. She is al so requesting medication refill for her Synthroid and omeprazole. She denies loss of gross motor movement, muscle weakness or saddle anesthesia. Allergies: Coded Allergies: PENICILLINS (Unverified Allergy, Unknown, 11/30/14) CIMETIDINE (Verified Adverse Reaction, Intermediate, 08/25/12) NOT ABLE TO DIGEST IT PER PT CIMETIDINE HCL (Verified Adverse Reaction, Intermediate, 08/25/12) NOT ABLE TO DIGEST IT PER PT COVID-19 Screening Contact w/high risk pt: No Recent Travel to affected area: No Experienced COVID-19 symptoms?: No COVID-19 Testing performed INLETTER: Yes COVID-19 Screening: Negative COVID-19 COVID-19 Testing Source: 1 month ago Patient History Past Medical History: see triage record Past Surgical History: none Pertinent Family History: none Now: No Reviewed Nursing Documentation: PMH: Agreed Nursing Documentation-PMH Past Medical History: No History, Except For Hx Hypertension: Yes Hx Pacemaker: No Hx Asthma: Yes Hx COPD: No Hx Diabetes: No Hx Cancer: No Hx Gastrointestinal Problems: Yes - IBS Hx Dialysis: No Hx Neurological Problems: No Hx Cerebrovascular Accident: No Hx Seizures: No Review of Systems All Other Systems: negative except mentioned in HPI Physical Exam Vital Signs Date Time Temp Pulse Resp B/P (MAP) Pulse Ox O2 Delivery O2 Flow Rate FiO2 07/13/20 18:03 99.1 101 16 121/66 (84) 96 Room Air Sp02 EP Interpretation: reviewed, normal General Appearance: no apparent distress, alert, GCS 15, non-toxic Head: normocephalic, atraumatic Eyes: bilateral eye normal inspection, bilateral eye PERRL ENT: hearing grossly normal, normal voice Neck: full range of motion Respiratory: lungs clear, normal breath sounds, speaking full sentences Cardiovascular #1: regular rate, rhythm, no edema, normal capillary refill Gastrointestinal: non tender, soft Genitourinary: normal inspection, no CVA tenderness Musculoskeletal: normal range of motion, no calf tenderness, gait/station normal, tender - TTP diffusely across the lumbar area, no localized spinous process tenderness or step-off, moderate left paraspainal tenderness in comparison to the right. Neurologic: alert, motor strength/tone normal, oriented x3, sensory intact, responsive, speech normal, other - no paresthesias on exam. Psychiatric: judgement/insight normal Skin: no rash, normal color, other - onychomycosis of the left great toe. Lymphatic: no adenopathy Medical Decision Making PA Attestation Dr. De Los Santos Is my supervising Physician whom patient management has been discussed with. Diagnostic Impression: Primary Impression: Acute exacerbation of chronic low back pain Additional Impressions: Medication refill Onychomycosis ER Course 60 YO female presents to the ED c/o exacerbation of her chronic back pain. Pt. reports she has had similar symptoms in the past. Pt. reports intermittent numbness to the side of the calfs and some toes bilaterally. She reports she has been having cramping sensation in her feet bilaterally x 1 week. Pt. denies trauma or fall. She denies fevers or chills. She denies urinary symptoms such as incontinence, dysuria, frequency, or urgency. She denies hematuria. She denie s hx of kidney stones. Pt. denies abdominal pain. She denies MIR. She is also requesting medication refill for her Synthroid and omeprazole. She denies loss of gross motor movement, muscle weakness or saddle anesthesia. Ddx considered: epidural abscess, fracture, sprain/strain, meningitis, neuropathy, DM, spinal chord injury, sciatica, cauda equina, Pyelonephritis, renal calculi just to name a few. Vital signs reviewed and are WNL during ED visit. Pt. is afebrile with no signs of infection No new symptoms, and denies recent trauma. No saddle anesthesia noted, Pt. denies incontinence Neurovascular is intact ROM is normal- sitting upright able to bend over and twist from side to side. ORDERS: -UA: Unremarkable INTERVENTIONS: - Lidoderm TP DISCHARGE: At this time pt. is stable for d/c to home. Will provide printed patient care instructions, and any necessary prescriptions. Care plan and follow up instructions have been discussed with the patient prior to discharge. Labs Test 07/13/20 18:36 Urine Color Pale yellow Urine Appearance Clear Urine pH 8 (4.5-8.0) Urine Specific [place] 1.010 (1.005-1.035) Urine Protein Negative (NEGATIVE) Urine Glucose (UA) Negative (NEGATIVE) Urine Ketones Negative (NEGATIVE) Urine Blood Negative (NEGATIVE) Urine Nitrite Negative (NEGATIVE) Urine Bilirubin Negative (NEGATIVE) Urine Urobilinogen Normal MG/DL (0.0-1.0) Urine Leukocyte Esterase Negative (NEGATIVE) Last Vital Signs Date Time Temp Pulse Resp B/P (MAP) Pulse Ox O2 Delivery O2 Flow Rate FiO2 07/13/20 18:03 99.1 101 16 121/66 (84) 96 Room Air Status: improved Disposition: HOME, SELF-CARE Condition: Stable Scripts Ciclopirox (CICLOPIROX) 6.6 Ml Solution 1 APPLIC TOPIC DAILY, #6.6 ML Prov: Kylah Fraga 07/13/20 Omeprazole (OMEPRAZOLE) 20 Mg Capsule.dr 20 MG ORAL DAILY for Gerd, #30 CAP Prov: Kylah Fraga 07/13/20 Levothyroxine Sodium* (SYNTHROID*) 100 Mcg Tablet 100 MCG ORAL DAILY for Thyroid, #300 TAB Take in the morning on an empty stomach, at least 30 minutes before food. Prov: Kylah Fraga 07/13/20 Methocarbamol* (ROBAXIN-500*) 500 Mg Tablet 500 MG ORAL QID PRN for For Pain, #28 TAB 0 Refills Prov: Kylah Fraga 07/13/20 Referrals: [facility] Patient Instructions: Back Pain, Adult, Sciatica Additional Instructions: Take medications as directed. Do not drink alcohol, drive, or operate heavy machinery while taking Robaxin ( Muscle Relaxers) as this may cause drowsiness. Follow up with a Primary Care Provider in 3-5 days, even if your symptoms have resolved. --Please review list of primary care clinics, if you do not already have a primary care provider Return sooner to ED if new symptoms occur, or current symptoms become worse. - Please note that this Emergency Department Report was dictated using Vulevúzipper machine operator technology software, occasionally this can lead to erroneous entry secondary to interpretation by the dictation equipment. Kylah Fraga Jul 13, 2020 18:50
[2020-07-13 19:14] LABS: APPEARANCE,URINE CLEAR; BILIRUBIN, URINE NEGATIVE (NEGATIVE); COLOR,URINE PALE YELLOW; GLUCOSE, URINE (UA) NEGATIVE (NEGATIVE); KETONES,URINE NEGATIVE (NEGATIVE); LEUKOCYTE ESTERASE ,URINE NEGATIVE (NEGATIVE); NITRITE,URINE NEGATIVE (NEGATIVE); PH,URINE 8 (4.5-8.0); PROTEIN,URINE NEGATIVE (NEGATIVE); UROBILINOGEN,URINE NORMAL MG/DL (0.0-1.0)
[2020-07-13] MEDS ORDERED: SYNTHROID100 MCG ORAL (19:43)
[2020-07-13] MEDS ORDERED: OMEPRAZOLE20 M2 ORAL (19:43)
[2020-07-13] MEDS ORDERED: ROBAXIN-500MG ORAL (19:43)
[2020-07-13] MEDS ORDERED: CICLOPIROX6.6 ML TOPIC (20:02)
[2020-07-13 20:05] VITALS: BP 124/68
== END 2020-07-13 20:05 | disposition home or self-care (01) ==
LOC: EMR 18:42
DX: G89.29 Other chronic pain (principal); M54.5 Low back pain; B35.1 Tinea unguium; Z76.0 Encounter for issue of repeat prescription; J45.909 Unspecified asthma, uncomplicated; Z79.899 Other long term (current) drug therapy; I10 Essential (primary) hypertension; Z88.0 Allergy status to penicillin; Z88.8 Allergy status to other drugs, medicaments and biological substances
CPT/HCPCS: 81003; Z7502; 99283

== ENCOUNTER 2020-08-10 17:31 | Emergency (ER) | payer MEDICAID ==
[~2020-08-10] VITALS: Ht 157.5 cm; Wt 38.6 kg
[~2020-08-10 17:31] MED LIST changes: +CICLOPIROX6.6 ML TOPIC
[2020-08-10 17:59] VITALS: BP 122/64
[2020-08-10 18:00] VITALS: BP 130/78
[2020-08-10] MEDS ORDERED: Acetaminophen 500mg (ES) tab ORAL ONE (18:00)
[2020-08-10] MEDS ORDERED: Methocarbamol 750mg tab ORAL ONE (18:00)
--- NOTE | 2020-08-10 18:00 | NUR ---
ED Nurse Note: Pt ambulated to ED from home d/t low back pain and L arm pain that has been going on for a couple of days. Pt is AOx4, calm and cooperatve to care, pt denies any recent injury, VSS, on RA, Afebrile on triage.
--- NOTE | 2020-08-10 18:34 | Emergency Room Report ---
History of Present Illness General Chief Complaint: Pain Source: Patient, Medical Record Present Illness HPI 60-year-old female ambulates without assistance into the emergency department complaining of 9 out of 10 severity right-sided low back pain in addition to left shoulder pain x4 days. Patient has a history of chronic back pain. Patient denies trauma or fall. She denies paresthesias. She is also requesting medication refill. Patient denies having chest pain, palpitations or shortness of breath. She denies midline back pain. Denies numbness tingling or loss of sensation or gross motor movements of the extremities, incontinence of bowel or bladder. Denies dizziness, Changes in Vision, weakness or a sudden severe headache. Pmhx of gastritis and hypothyroid as well. She is right hand dominant. Reaching with her left arm exacerbates her symptoms. Allergies: Coded Allergies: PENICILLINS (Unverified Allergy, Unknown, 11/30/14) CIMETIDINE (Verified Adverse Reaction, Intermediate, 08/25/12) NOT ABLE TO DIGEST IT PER PT CIMETIDINE HCL (Verified Adverse Reaction, Intermediate, 08/25/12) NOT ABLE TO DIGEST IT PER PT COVID-19 Screening Contact w/high risk pt: No Recent Travel to affected area: No Experienced COVID-19 symptoms?: No COVID-19 Testing performed GAS DESULFURIZER: No Patient History Past Medical History: see triage record Past Surgical History: none Pertinent Family History: none Now: No Reviewed Nursing Documentation: PMH: Agreed; PSxH: Agreed Nursing Documentation-PMH Past Medical History: No History, Except For Hx Hypertension: Yes Hx Pacemaker: No Hx Asthma: Yes Hx COPD: No Hx Diabetes: No Hx Cancer: No Hx Gastrointestinal Problems: Yes - IBS Hx Dialysis: No Hx Neurological Problems: No Hx Cerebrovascular Accident: No Hx Seizures: No Review of Systems All Other Systems: negative except mentioned in HPI Physical Exam Vital Signs Date Time Temp Pulse Resp B/P (MAP) Pulse Ox O2 Delivery O2 Flow Rate FiO2 08/10/20 17:37 98.8 97 15 122/64 (83) 96 Room Air Sp02 EP Interpretation: reviewed, normal General Appearance: no apparent distress, alert, GCS 15, non-toxic Head: normocephalic, atraumatic Eyes: bilateral eye normal inspection, bilateral eye PERRL ENT: hearing grossly normal, normal voice Neck: full range of motion Respiratory: chest non-tender, lungs clear, normal breath sounds, no wheezing, speaking full sentences Cardiovascular #1: regular rate, rhythm, normal capillary refill Cardiovascular #2: 2+ radial (R), 2+ radial (L) Gastrointestinal: non tender, soft Rectal: deferred Genitourinary: normal inspection, no CVA tenderness Musculoskeletal: back normal, normal range of motion, gait/station normal, tender - Mild Tenderness to palpation to right paraspinal muscles of the lower back without midline tenderness. TTP to the left deltoid and rhomboid, no clicking with ROM testing of the left shoulder. NVI. Neurologic: alert, motor strength/tone normal, oriented x3, sensory intact, responsive, speech normal Psychiatric: judgement/insight normal Skin: no rash, normal color - no signs of infeciton Lymphatic: no adenopathy Medical Decision Making PA Attestation Dr. Hoffman Is my supervising Physician whom patient management has been discussed with. Diagnostic Impression: Primary Impression: Arm pain Qualified Codes: M79.602 - Pain in left arm Additional Impressions: Back pain Qualified Codes: M54.5 - Low back pain Medication refill ER Course 60-year-old female ambulates without assistance into the emergency department complaining of 9 out of 10 severity right-sided low back pain in addition to left shoulder pain x4 days. Patient has a history of chronic back pain. Patient denies trauma or fall. She denies paresthesias. She is also requesting medication refill. Patient denies having chest pain, palpitations or shortness of breath. She denies midline back pain. Denies numbness tingling or loss of sensation or gross motor movements of the extremities, incontinence of bowel or bladder. Denies dizziness, Changes in Vision, weakness or a sudden severe headache. Pmhx of gastritis and hypothyroid as well. She is right hand dominant. Reaching with her left arm exacerbates her symptoms. Ddx considered: Tendinitis, rotator cuff injury, epidural abscess, fracture, sprain/strain, spinal chord injury, sciatica, cauda equina, [place], Malingering just to name a few. Vital signs reviewed and are WNL during ED visit. History and physical exam are most consistent with exacerbation of chronic musculoskeletal pain. No obvious signs of trauma or suspicion of fractures. No evidence to suggest spinal cord injury. Given patient's age and presenting with left arm pain will perform EKG. Highly suspect visit is primarily for medication refill as this patient is well-known to the emergency department and habitually presents to the emergency room around this time monthly for medication refills but uses other symptoms/ problems as her cc. Pt. is afebrile with no signs of infection No new symptoms, and denies recent trauma. No saddle anesthesia noted, Pt. denies incontinence Neurovascular is intact FROM w. some pain exacerbation. * Mild Tenderness to palpation to right paraspinal muscles of the lower back without midline tenderness. ORDERS: -EK NSR , no acute ST changes INTERVENTIONS: - 20mg IM Toradol -Tramadol PO D/W Pt. that for further pain management is it recommended to consult PCP or a Chronic Pain management doctor. A provider who can safely prescribe controlled substances with close follow up. DISCHARGE: At this time pt. is stable for d/c to home. Will provide printed patient care instructions, and any necessary prescriptions. Care plan and follow up instructions have been discussed with the patient prior to discharge. EKG Diagnostic Results Troponin ordered: No - screen, no cp EKG Time: 18:26 EP Interpretation: 89 Rate: normal Rhythm: NSR ST Segments: no acute changes ASA given to the pt in ED: No PA Scribe Text This Interpretation was scribed by FER Fraga. Last Vital Signs Date Time Temp Pulse Resp B/P (MAP) Pulse Ox O2 Delivery O2 Flow Rate FiO2 08/10/20 17:59 98.8 15 122/64 96 Room Air 08/10/20 17:37 97 Status: improved Disposition: HOME, SELF-CARE Condition: Stable Scripts Albuterol Sulfate (VENTOLIN HFA) 18 Gm Hfa.aer.ad 1 PUFF INH EVERY 6 HOURS, #18 GM 0 Refills Prov: Kylah Fraga 08/10/20 Methocarbamol* (ROBAXIN-500*) 500 Mg Tablet 500 MG ORAL QID PRN for For Pain for 7 Days, #28 TAB 0 Refills Prov: Kylah Fraga 08/10/20 Lidocaine Patch* (Lidoderm Patch*) 1 Each Adh..patch 1 PATCH TOPIC DAILY, #30 PATCH 0 Refills Patch(es) may remain in place for up to 12 hours in any 24-hour period. Prov: Kylah Fraga 08/10/20 Omeprazole (OMEPRAZOLE) 40 Mg Capsule. 40 MG ORAL DAILY for Gerd for 30 Days, #30 CAP Prov: Kylah Fraga 08/10/20 Levothyroxine Sodium* (SYNTHROID*) 100 Mcg Tablet 100 MCG ORAL DAILY for Thyroid for 30 Days, #30 TAB Take in the morning on an empty stomach, at least 30 minutes before food. Prov: Kylah Fraga 08/10/20 Patient Instructions: Back Pain, Adult, [id number] Additional Instructions: Take medications as directed. Follow up with a Primary Care Provider in 3-5 days, even if your symptoms have resolved. Return sooner to ED if new symptoms occur, or current symptoms become worse. - Please note that this Emergency Department Report was dictated using [employer] Customstelegraph lineman technology software, occasionally this can lead to erroneous entry secondary to interpretation by the dictation equipment. Kylah Fraga Aug 10, 2020 18:34
[2020-08-10] MEDS ORDERED: ROBAXIN-500MG ORAL (18:37)
[2020-08-10] MEDS ORDERED: SYNTHROID100 MCG ORAL (18:37)
[2020-08-10] MEDS ORDERED: LIDODERM700 M1 TOPIC (18:37)
[2020-08-10] MEDS ORDERED: OMEPRAZOLE40 M1 ORAL (18:37)
[2020-08-10] MEDS ORDERED: VENTOLIN HFA18 GM INH (18:49)
--- NOTE | 2020-08-10 18:52 | NUR ---
ER DISCHARGE NOTE: Patient is cleared to be discharged per ERPA, pt is aox4, on room air, with stable vital signs. pt was given dc and prescription instructions, pt was able to verbalize understanding, pt id band report. pt is able to ambulate with steady gait. pt took all belongings.
--- NOTE | 2020-08-11 12:54 | Cardiology Report ---
APPROVED REPORT EKG Measurement Heart [id number] <Conclusion> Normal sinus rhythm Incomplete RBBB Possible Left atrial enlargement Borderline ECG
== END 2020-08-10 18:30 | disposition home or self-care (01) ==
LOC: EMR 17:45
DX: M54.5 Low back pain (principal); M79.602 Pain in left arm; Z76.0 Encounter for issue of repeat prescription; J45.909 Unspecified asthma, uncomplicated; I10 Essential (primary) hypertension; K58.9 Irritable bowel syndrome, unspecified; Z88.0 Allergy status to penicillin; Z88.8 Allergy status to other drugs, medicaments and biological substances; Z79.899 Other long term (current) drug therapy
CPT/HCPCS: 93005; Z7502; 99282

== ENCOUNTER 2020-09-13 17:56 | Emergency (ER) | payer MEDICAID ==
[~2020-09-13] VITALS: Ht 157.5 cm; Wt 38.1 kg
[2020-09-13 18:00] VITALS: BP 121/72
[2020-09-13] MEDS ORDERED: Ketorolac 30mg Inj IM ONE (18:15)
--- NOTE | 2020-09-13 18:31 | NUR ---
Patient came to ER reporting that she fell at 8am this morning and was waiting on her brother to bring her to the ER. No s/s of pain.Independent. Ambulatory. At present , sitting on bed and going through and fixing her bag. Scheduled for xray
--- NOTE | 2020-09-13 18:37 | NUR ---
Taken to xray
--- NOTE | 2020-09-13 18:56 | Emergency Room Report ---
History of Present Illness General Chief Complaint: Multiple Trauma/Fall Source: Patient Present Illness HPI Patient is a 60-year-old female past medical history of hypothyroidism and frequent falls well-known to this emergency department who presents to the ER complaining of fall. Patient states that she tripped and fell hitting her right shoulder to the ground. She denies any head trauma or loss of consciousness. She denies any chest pain or shortness of breath. Patient is asking for an injection for pain. She states that the pain is around her right armpit. 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: Yes COVID-19 Screening: Negative COVID-19 COVID-19 Testing Source: nasal Patient History Reviewed Nursing Documentation: PMH: Agreed; PSxH: Agreed Nursing Documentation-PMH Past Medical History: No History, Except For Hx Hypertension: Yes Hx Pacemaker: No Hx Asthma: Yes Hx COPD: No Hx Diabetes: No Hx Cancer: No Hx Gastrointestinal Problems: Yes - IBS Hx Dialysis: No Hx Neurological Problems: No Hx Cerebrovascular Accident: No Hx Seizures: No Review of Systems All Other Systems: negative except mentioned in HPI Physical Exam Vital Signs Date Time Temp Pulse Resp B/P (MAP) Pulse Ox O2 Delivery O2 Flow Rate FiO2 09/13/20 18:00 97.5 103 18 121/72 (88) 96 Room Air Sp02 EP Interpretation: reviewed, normal General Appearance: no apparent distress, alert, GCS 15, non-toxic Head: normocephalic, atraumatic Eyes: bilateral eye normal inspection, bilateral eye PERRL ENT: hearing grossly normal, normal pharynx, no angioedema, normal voice Neck: full range of motion, supple/symm/no masses Respiratory: chest non-tender, lungs clear, normal breath sounds, speaking full sentences Cardiovascular #1: regular rate, rhythm, no edema Gastrointestinal: normal bowel sounds, non tender, soft, non-distended, no guarding, no rebound Rectal: deferred Musculoskeletal: other - Diffuse anterior right shoulder tenderness and left axillary tenderness to palpation, normal range of motion, no crepitus, no obvious deformity Neurologic: physical laboratory assistant III-XII nml as tested, oriented x3 Psychiatric: no suicidal/homicidal ideation Skin: no rash, other - Old ecchymosis to bilateral anterior tib-fib Lymphatic: no adenopathy Medical Decision Making Diagnostic Impression: Primary Impression: Fall Additional Impression: Sprain of right shoulder ER Course Patient's x-rays demonstrate no acute fractures. Patient given Toradol for pain relief. Patient also requesting refill for her Synthroid. After discussing risks and benefits of further diagnostics, treatment plans, as well as indications for and risks of admission, the patient is agreeable to being discharged home. I have explained that their evaluation and treatment in the emergency department today is an important step towards them achieving better health but that their evaluation today is not intended to replace further evaluation and treatment by a physician in their local clinic. I have explained that while the current findings suggest no immediate life threatening emergency they will require further evaluation and treatment by a physician of their choice in their area. They understand that it will be necessary for them to review the final reports of their ED visit with their clinic physician. We have reviewed indications for return to the Emergency Department. I have explained that additional time may need to pass and/or additional testing as an outpatient may be necessary before a definitive diagnosis can be made. They tell me they are willing to follow up as instructed within the timeframe I recommend. They appear to understand what we discussed. Additionally they understand that if they are unable to be seen by an outpatient physician they are welcome, and in fact should, return to the Emergency Department for a repeat evaluation. The patient is stable at time of discharge. Chest X-Ray Diagnostic Results Chest X-Ray Diagnostic Results : Chest X-Ray Ordered: Yes # of Views/Limited/Complete: 2 View Indication: Other - Trauma EP Interpretation: Yes Interpretation: no consolidation, no effusion, no pneumothorax, no acute cardiopulmonary disease Impression: No acute disease Electronically Signed by: Kiana Meeks MD Other X-Ray Diagnostic Results Other X-Ray Diagnostic Results : X-Ray ordered: Right shoulder # of Views/Limited Vs Complete: 3 View Indication: Pain EP Interpretation: Yes Interpretation: no dislocation, no soft tissue swelling, no fractures Impression: No acute disease Electronically Signed by: Kiana Meeks MD Last Vital Signs Date Time Temp Pulse Resp B/P (MAP) Pulse Ox O2 Delivery O2 Flow Rate FiO2 09/13/20 18:24 Room Air 09/13/20 18:00 97.5 103 18 121/72 (88) 96 Disposition: HOME, SELF-CARE Condition: Stable Scripts Ibuprofen* (MOTRIN*) 600 Mg Tablet 600 MG ORAL FOUR TIMES A DAY, #30 TAB 0 Refills Prov: Kiana Meeks M.D. 09/13/20 Levothyroxine Sodium* (SYNTHROID*) 100 Mcg Tablet 100 MCG ORAL DAILY for Thyroid for 30 Days, #30 TAB Take in the morning on an empty stomach, at least 30 minutes before food. Prov: Kiana Meeks M.D. 09/13/20 Referrals: [facility] (PCP) Additional Instructions: The patient was provided with discharge instructions, notified to follow-up with a primary care doctor and or specialist in the next 24-48 hours, and to return to the ED if they have worsening of their symptoms. Please note that this report is being documented using [employer] technology. This can lead to erroneous entry secondary to incorrect interpretation by the dictating instrument. Kiana Meeks M.D. Sep 13, 2020 18:56
[2020-09-13] MEDS ORDERED: IBUPROFEN600 M1 ORAL (18:58)
[2020-09-13] MEDS ORDERED: SYNTHROID100 MCG ORAL (18:58)
[2020-09-13] MEDS ORDERED: OMEPRAZOLE40 M1 ORAL (19:01)
--- NOTE | 2020-09-15 13:19 | Diagnostic Imaging Report ---
Indication: Trauma, chest pain Technique: 2 views of the chest Comparison: 06/15/2020 Findings: Lungs and pleural spaces are clear. The heart size is normal. The bones are intact. No significant change Impression: Negative
--- NOTE | 2020-09-15 13:19 | Diagnostic Imaging Report ---
Indication: Trauma, pain Technique: 3 views of the right shoulder Comparison: none Findings: No acute fracture. No dislocation. The joint spaces are preserved Impression: Negative
== END 2020-09-13 19:03 | disposition home or self-care (01) ==
LOC: EMR 18:07
DX: S43.401A Unspecified sprain of right shoulder joint, initial encounter (principal); I10 Essential (primary) hypertension; J45.909 Unspecified asthma, uncomplicated; K58.9 Irritable bowel syndrome, unspecified; W01.198A Fall on same level from slipping, tripping and stumbling with subsequent striking against other object, initial encounter; Y93.9 Activity, unspecified; Y92.9 Unspecified place or not applicable; Z88.0 Allergy status to penicillin; Z88.8 Allergy status to other drugs, medicaments and biological substances; Z79.899 Other long term (current) drug therapy
CPT/HCPCS: 71046; 73030; 96372; J1885; Z7502; 99284